=== PATIENT | male | born 1945 | race Caucasian/White ===

== ENCOUNTER → 2018-01-01 11:44 | Outpatient (CLI) | payer MEDICARE, OTHER, SELFPAY ==
[2018-01-01 14:28] LABS: Absolute Lymphocyte Count 1.12 X10^3/ul (0.83-4.51); Absolute Neutrophil Count 3.2 X10^3/uL (2.0-7.7); Basophil# 0.04 X10^3/uL; Basophil% 0.8 % (0-1); Eosinophil# 0.17 X10^3/uL; Eosinophils% 3.4 % (0-5); Hematocrit 42.3 % (40-54); Hemoglobin 13.8 g/dl (13.0-16.5); Lymphocyte # 1.12 X10^3/ul (4.0); Lymphocyte % 22.3 % (19-41); Mean Corp Hgb Conc 32.6 g/gl (32-36); Mean Corpuscular Hgb 29.7 pg (27.0-32.0); Mean Corpuscular Volume 91.2 fL (80-94); Mean Platelet Vol. 9.4 fl (6.2-12.0); Monocyte# 0.54 X10^3/uL; Monocyte% 10.7 % (0-10); Neutrophil # 3.15 X10^3/uL (2.7-7.7); Neutrophil % 62.6 % (47-70); POSITIVE COUNT NO; POSITIVE DIFFERENTIAL NO; POSITIVE MORPHOLOGY NO; Platelet Count 201 K/mm3 (150-450); RBC Distribution Width CV 14.2 % (11.6-14.6); RBC Distribution Width SD 45.7 fl (35.1-43.9); Red Blood Count 4.64 M/mm3 (4.6-6.2)
[2018-01-01 14:40] LABS: ALB/GLOB Ratio 1.1 RATIO (0.9-2.4); AST(SGOT) 25 U/L (15-37); Alanine Aminotransfer ALT/SGPT 37 U/L (16-61); Albumin, Serum 3.6 g/dL (3.2-5.0); Alkaline Phosphatase 74 U/L (45-117); Anion Gap 6 (5-15); BUN 21 mg/dL (7-18); Calcium,Total 8.6 mg/dL (8.5-10.1); Chloride 105 mmol/L (98-107); Creatinine, Serum 0.96 mg/dL (0.70-1.30); EST Glomerular Filtration Rate 83 mL/min (>60); Est Glom Filt Rate - Afr Amer 100 mL/min (>60); Globulin 3.2 g/dL (2.2-4.2); Glucose 69 mg/dL (74-106); Potassium 3.8 mmol/L (3.5-5.1); Protein, Total 6.8 g/dL (6.4-8.2); Sodium Level 141 mmol/L (136-145)
== END ==
PROVIDERS: Family Provider Internal Medicine; PCP Internal Medicine; Visit Provider Internal Medicine Rheumatology
DX: M06.4 Inflammatory polyarthropathy (principal); M17.0 Bilateral primary osteoarthritis of knee; K76.0 Fatty (change of) liver, not elsewhere classified; Z79.899 Other long term (current) drug therapy
CPT/HCPCS: 36415; 80053; 85025

== ENCOUNTER → 2018-01-18 10:12 | Outpatient (CLI) | payer MEDICARE, OTHER, SELFPAY ==
[2018-01-18 12:41] LABS: Cholesterol 179 mg/dL (200); High Density Lipoprotein 38 mg/dL; Triglycerides 111 mg/dL; Very Low Density Lipoprotein 22 mg/dL (5-40)
== END ==
PROVIDERS: Family Provider Internal Medicine; PCP Internal Medicine; Visit Provider Internal Medicine
DX: I10 Essential (primary) hypertension (principal)
CPT/HCPCS: 36415; 80061

== ENCOUNTER → 2018-03-26 11:10 | Outpatient (CLI) | payer MEDICARE, OTHER, SELFPAY ==
[2018-03-26 14:02] LABS: Absolute Lymphocyte Count 0.99 X10^3/ul (0.83-4.51); Absolute Neutrophil Count 3.2 X10^3/uL (2.0-7.7); Basophil# 0.03 X10^3/uL; Basophil% 0.6 % (0-1); Eosinophil# 0.12 X10^3/uL; Eosinophils% 2.5 % (0-5); Hematocrit 42.9 % (40-54); Hemoglobin 14.3 g/dl (13.0-16.5); Lymphocyte # 0.99 X10^3/ul (4.0); Lymphocyte % 20.3 % (19-41); Mean Corp Hgb Conc 33.3 g/gl (32-36); Mean Corpuscular Volume 90.1 fL (80-94); Mean Platelet Vol. 9.7 fl (6.2-12.0); Monocyte# 0.53 X10^3/uL; Monocyte% 10.9 % (0-10); Neutrophil % 65.5 % (47-70); Platelet Count 200 K/mm3 (150-450); RBC Distribution Width CV 14.2 % (11.6-14.6); RBC Distribution Width SD 45.6 fl (35.1-43.9); Red Blood Count 4.76 M/mm3 (4.6-6.2); White Blood Count 4.9 K/mm3 (4.4-11.0)
[2018-03-26 14:03] LABS: POSITIVE COUNT NO; POSITIVE DIFFERENTIAL NO; POSITIVE MORPHOLOGY NO
[2018-03-26 14:24] LABS: ALB/GLOB Ratio 1.1 RATIO (0.9-2.4); AST(SGOT) 22 U/L (15-37); Alanine Aminotransfer ALT/SGPT 36 U/L (16-61); Albumin, Serum 3.5 g/dL (3.2-5.0); Alkaline Phosphatase 78 U/L (45-117); Anion Gap 5 (5-15); BUN 22 mg/dL (7-18); BUN/Creat Ratio 23.8 RATIO (10-20); Calcium,Total 8.7 mg/dL (8.5-10.1); Chloride 108 mmol/L (98-107); Creatinine, Serum 0.92 mg/dL (0.70-1.30); EST Glomerular Filtration Rate 86 mL/min (>60); Est Glom Filt Rate - Afr Amer 104 mL/min (>60); Globulin 3.1 g/dL (2.2-4.2); Glucose 88 mg/dL (74-106); Potassium 3.8 mmol/L (3.5-5.1); Protein, Total 6.6 g/dL (6.4-8.2); Sodium Level 140 mmol/L (136-145)
== END ==
PROVIDERS: Family Provider Internal Medicine; PCP Internal Medicine; Visit Provider Internal Medicine Rheumatology
DX: M06.4 Inflammatory polyarthropathy (principal); M17.0 Bilateral primary osteoarthritis of knee; K76.0 Fatty (change of) liver, not elsewhere classified; Z79.899 Other long term (current) drug therapy
CPT/HCPCS: 36415; 80053; 85025

== ENCOUNTER → 2018-06-21 11:51 | Outpatient (CLI) | payer MEDICARE, OTHER, SELFPAY ==
[2018-06-21 14:11] LABS: ALB/GLOB Ratio 1.1 RATIO (0.9-2.4); AST(SGOT) 30 U/L (15-37); Alanine Aminotransfer ALT/SGPT 43 U/L (16-61); Albumin, Serum 3.5 g/dL (3.2-5.0); Alkaline Phosphatase 76 U/L (45-117); Anion Gap 7 (5-15); BUN 18 mg/dL (7-18); BUN/Creat Ratio 20.2 RATIO (10-20); Calcium,Total 8.9 mg/dL (8.5-10.1); Chloride 105 mmol/L (98-107); Creatinine, Serum 0.89 mg/dL (0.70-1.30); EST Glomerular Filtration Rate 90 mL/min (>60); Est Glom Filt Rate - Afr Amer 108 mL/min (>60); Globulin 3.1 g/dL (2.2-4.2); Glucose 73 mg/dL (74-106); Potassium 3.9 mmol/L (3.5-5.1); Protein, Total 6.6 g/dL (6.4-8.2); Sodium Level 143 mmol/L (136-145)
[2018-06-21 15:33] LABS: Absolute Lymphocyte Count 0.91 X10^3/ul (0.83-4.51); Absolute Neutrophil Count 3.3 X10^3/uL (2.0-7.7); Basophil# 0.04 X10^3/uL; Basophil% 0.8 % (0-1); Eosinophil# 0.12 X10^3/uL; Eosinophils% 2.5 % (0-5); Hemoglobin 14.6 g/dl (13.0-16.5); Lymphocyte # 0.91 X10^3/ul (4.0); Lymphocyte % 18.7 % (19-41); Mean Corp Hgb Conc 32.4 g/gl (32-36); Mean Corpuscular Hgb 29.6 pg (27.0-32.0); Mean Corpuscular Volume 91.3 fL (80-94); Mean Platelet Vol. 10.1 fl (6.2-12.0); Monocyte# 0.47 X10^3/uL; Monocyte% 9.7 % (0-10); Neutrophil # 3.33 X10^3/uL (2.7-7.7); Neutrophil % 68.3 % (47-70); Platelet Count 183 K/mm3 (150-450); RBC Distribution Width CV 13.7 % (11.6-14.6); RBC Distribution Width SD 45.2 fl (35.1-43.9); Red Blood Count 4.93 M/mm3 (4.6-6.2); White Blood Count 4.9 K/mm3 (4.4-11.0)
[2018-06-21 15:34] LABS: POSITIVE COUNT NO; POSITIVE DIFFERENTIAL NO; POSITIVE MORPHOLOGY NO
== END ==
PROVIDERS: Family Provider Internal Medicine; PCP Internal Medicine; Visit Provider Internal Medicine Rheumatology
DX: M06.4 Inflammatory polyarthropathy (principal); M17.0 Bilateral primary osteoarthritis of knee; K76.0 Fatty (change of) liver, not elsewhere classified; Z79.899 Other long term (current) drug therapy
CPT/HCPCS: 36415; 80053; 85025

== ENCOUNTER 2018-06-28 06:19 | Day surgery (SDC) | payer MEDICARE, OTHER, SELFPAY ==
[2018-06-28] VITALS (7 sets, daily range): BP systolic 96–160; BP diastolic 48–86; PULSE 62–67; RESP 16–18; TEMP 36.2–36.4; O2SAT 96–100; BMI 25.2
--- NOTE | 2018-06-28 08:00 | OP.ENDO_ITS ---
Patient Name: Justin Becerra Procedure Date: 06/28/2018 7:32 AM Date of : 1945 Age: 73 Procedure: Colonoscopy Indications: Screening for colorectal malignant neoplasm Providers: Deyvi Gutiérrez MD Referring MD: Deyvi Gutiérrez MD Medicines: See the Anesthesia note for documentation of the administered medications Patient Profile: Last Colonoscopy: 10 years ago. Complications: No immediate complications. Procedure: Pre-Anesthesia Assessment: - Prior to the procedure, a History and Physical was performed, and patient medications and allergies were reviewed. The patient's tolerance of previous anesthesia was also reviewed. The risks and benefits of the procedure and the sedation options and risks were discussed with the patient. All questions were answered, and informed consent was obtained. Prior Anticoagulants: The patient has taken no previous anticoagulant or antiplatelet agents. ASA Grade Assessment: II - A patient with mild systemic disease. After reviewing the risks and benefits, the patient was deemed in satisfactory condition to undergo the procedure. After I obtained informed consent, the scope was passed under direct vision. Throughout the procedure, the patient's blood pressure, pulse, and oxygen saturations were monitored continuously. The colonoscope was introduced through the anus and advanced to the ileocecal valve. The colonoscopy was performed without difficulty. The patient tolerated the procedure well. The quality of the bowel preparation was good. Scope In: 7:41:36 AM Scope Withdrawal Time 0 hours 6 minutes 5 seconds Scope Out: 7:54:21 AM Total Procedure Duration Time 0 hours 12 minutes 45 seconds Findings: Hemorrhoids were found on perianal exam. Multiple small and large-mouthed diverticula were found in the sigmoid colon. There was no evidence of diverticular bleeding. The exam was otherwise without abnormality. Impression: - Hemorrhoids found on perianal exam. - Diverticulosis in the sigmoid colon. There was no evidence of diverticular bleeding. - The examination was otherwise normal. - No specimens collected. Recommendation: - Discharge patient to home. - Resume previous diet. - Continue present medications. - Repeat colonoscopy in 10 years for screening purposes. - Return to primary care physician PRN. Procedure Code(s): --- Professional --- G0121, Colorectal cancer screening; colonoscopy on individual not meeting criteria for high risk Diagnosis Code(s): --- Professional --- Z12.11, Encounter for screening for malignant neoplasm of colon K64.9, Unspecified hemorrhoids K57.30, Diverticulosis of large intestine without perforation or abscess without bleeding CPT copyright 2017 [employer]. All rights reserved. The codes documented in this report are preliminary and upon certified coatings inspector review may be revised to meet current compliance requirements. MD Deyvi Che MD 06/28/2018 7:59:45 AM This report has been signed electronically. Number of Addenda: 0 Note Initiated On: 06/28/2018 7:32 AM
== END 2018-06-28 09:04 | disposition home or self-care (01) ==
LOC: SDC 06:21 → AC 06:22
PROVIDERS: Family Provider Internal Medicine; PCP Internal Medicine; Visit Provider Surgery
PROC: 0DJD8ZZ Inspection of Lower Intestinal Tract, Via Natural or Artificial Opening Endoscopic (ICD-10-PCS; CPT 45378; principal; 2018-06-28 07:40)
DX: Z12.11 Encounter for screening for malignant neoplasm of colon (principal); K64.9 Unspecified hemorrhoids; K57.30 Diverticulosis of large intestine without perforation or abscess without bleeding; I10 Essential (primary) hypertension; M06.9 Rheumatoid arthritis, unspecified; Z79.52 Long term (current) use of systemic steroids; Z79.899 Other long term (current) drug therapy; Z87.19 Personal history of other diseases of the digestive system
CPT/HCPCS: G0121; J7120; J1610

== ENCOUNTER → 2018-08-30 11:36 | Outpatient (CLI) | payer MEDICARE, OTHER, SELFPAY ==
[2018-07-13 10:12] VITALS: BMI 25.3
[2018-08-30 14:24] LABS: Absolute Lymphocyte Count 1.01 X10^3/ul (0.83-4.51); Basophil# 0.03 X10^3/uL; Basophil% 0.7 % (0-1); Eosinophil# 0.08 X10^3/uL; Eosinophils% 1.8 % (0-5); Hematocrit 47.3 % (40-54); Hemoglobin 15.8 g/dl (13.0-16.5); Lymphocyte # 1.01 X10^3/ul (4.0); Lymphocyte % 22.6 % (19-41); Mean Corp Hgb Conc 33.4 g/gl (32-36); Mean Corpuscular Hgb 30.4 pg (27.0-32.0); Mean Platelet Vol. 9.3 fl (6.2-12.0); Monocyte# 0.36 X10^3/uL; Monocyte% 8.1 % (0-10); Neutrophil # 2.98 X10^3/uL (2.7-7.7); Neutrophil % 66.6 % (47-70); Platelet Count 186 K/mm3 (150-450); RBC Distribution Width CV 14.3 % (11.6-14.6); RBC Distribution Width SD 46.7 fl (35.1-43.9); White Blood Count 4.5 K/mm3 (4.4-11.0)
[2018-08-30 14:30] LABS: POSITIVE COUNT NO; POSITIVE DIFFERENTIAL NO; POSITIVE MORPHOLOGY NO
[2018-08-30 14:49] LABS: ALB/GLOB Ratio 1.2 RATIO (0.9-2.4); AST(SGOT) 33 U/L (15-37); Alanine Aminotransfer ALT/SGPT 54 U/L (16-61); Albumin, Serum 3.8 g/dL (3.2-5.0); Alkaline Phosphatase 80 U/L (45-117); Anion Gap 9 (5-15); BUN 18 mg/dL (7-18); BUN/Creat Ratio 18.3 RATIO (10-20); Calcium,Total 9.2 mg/dL (8.5-10.1); Chloride 105 mmol/L (98-107); Creatinine, Serum 0.98 mg/dL (0.70-1.30); EST Glomerular Filtration Rate 80 mL/min (>60); Est Glom Filt Rate - Afr Amer 97 mL/min (>60); Globulin 3.1 g/dL (2.2-4.2); Glucose 92 mg/dL (74-106); Potassium 4.1 mmol/L (3.5-5.1); Protein, Total 6.9 g/dL (6.4-8.2); Sodium Level 143 mmol/L (136-145)
== END ==
PROVIDERS: Family Provider Internal Medicine; PCP Internal Medicine; Referring Provider Internal Medicine Rheumatology; Visit Provider Internal Medicine Rheumatology
DX: M06.4 Inflammatory polyarthropathy (principal); M17.0 Bilateral primary osteoarthritis of knee; K76.0 Fatty (change of) liver, not elsewhere classified; Z79.899 Other long term (current) drug therapy
CPT/HCPCS: 36415; 80053; 85025

== ENCOUNTER → 2018-09-24 16:18 | Outpatient (CLI) | payer MEDICARE, OTHER, SELFPAY ==
[2018-09-24 15:02] VITALS: BMI 25.7
--- NOTE | 2018-09-24 16:20 | RAD_ITS ---
STUDY: X-RAY - RIGHT HIP, AP pelvis REASON FOR EXAM: Male, 73 years old. Right hip pain TECHNIQUE: 2 views of the hip. AP pelvis. COMPARISON: None. FINDINGS: There are osteoarthritic changes of the femoral head with marginal osteophyte formation. There is osteoarthritic spur formation of the acetabular rim. There is moderate articular joint space narrowing. There is mild uncovering of the lateral femoral head. Pelvic ring is intact. Left hip is normally aligned with mild circumferential joint space narrowing. Spondylosis and degenerative changes of the lumbosacral spine partially visualized. RAD/Hip uni 4+ views with Pelvis IMPRESSION: Moderate osteoarthrosis of the right hip. Electronically Signed: John Murdock MD at 10:57 EST , Service support ,
== END ==
LOC: MTLAB 16:19 → MTRAD 16:21
PROVIDERS: Family Provider Internal Medicine; PCP Internal Medicine; Referring Provider Nurse Practitioner Family; Visit Provider Nurse Practitioner Family
DX: M25.551 Pain in right hip (principal)
CPT/HCPCS: 73503

== ENCOUNTER → 2018-11-26 10:02 | Outpatient (CLI) | payer MEDICARE, OTHER, SELFPAY ==
[2018-09-24 15:02] VITALS: BMI 25.7
[2018-11-26 12:10] LABS: Absolute Lymphocyte Count 0.91 X10^3/ul (0.83-4.51); Absolute Neutrophil Count 2.9 X10^3/uL (2.0-7.7); Basophil# 0.02 X10^3/uL; Basophil% 0.5 % (0-1); Eosinophil# 0.07 X10^3/uL; Eosinophils% 1.7 % (0-5); Hematocrit 47.6 % (40-54); Hemoglobin 15.9 g/dl (13.0-16.5); Lymphocyte # 0.91 X10^3/ul (4.0); Lymphocyte % 21.5 % (19-41); Mean Corp Hgb Conc 33.4 g/gl (32-36); Mean Corpuscular Hgb 31.2 pg (27.0-32.0); Mean Corpuscular Volume 93.5 fL (80-94); Mean Platelet Vol. 9.7 fl (6.2-12.0); Monocyte# 0.34 X10^3/uL; Neutrophil # 2.88 X10^3/uL (2.7-7.7); Neutrophil % 68.1 % (47-70); Platelet Count 195 K/mm3 (150-450); RBC Distribution Width CV 13.7 % (11.6-14.6); RBC Distribution Width SD 44.7 fl (35.1-43.9); Red Blood Count 5.09 M/mm3 (4.6-6.2); White Blood Count 4.2 K/mm3 (4.4-11.0)
[2018-11-26 12:11] LABS: POSITIVE COUNT NO; POSITIVE DIFFERENTIAL NO; POSITIVE MORPHOLOGY NO
[2018-11-26 12:37] LABS: ALB/GLOB Ratio 1.3 RATIO (0.9-2.4); AST(SGOT) 28 U/L (15-37); Alanine Aminotransfer ALT/SGPT 40 U/L (16-61); Albumin, Serum 3.9 g/dL (3.2-5.0); Alkaline Phosphatase 81 U/L (45-117); Anion Gap 5 (5-15); BUN 19 mg/dL (7-18); BUN/Creat Ratio 20.3 RATIO (10-20); Calcium,Total 8.9 mg/dL (8.5-10.1); Chloride 107 mmol/L (98-107); Creatinine, Serum 0.93 mg/dL (0.70-1.30); EST Glomerular Filtration Rate 85 mL/min (>60); Est Glom Filt Rate - Afr Amer 102 mL/min (>60); Glucose 63 mg/dL (74-106); Potassium 3.9 mmol/L (3.5-5.1); Protein, Total 6.9 g/dL (6.4-8.2); Sodium Level 142 mmol/L (136-145)
== END ==
PROVIDERS: Family Provider Internal Medicine; PCP Internal Medicine; Referring Provider Internal Medicine Rheumatology; Visit Provider Internal Medicine Rheumatology
DX: M06.4 Inflammatory polyarthropathy (principal); M17.0 Bilateral primary osteoarthritis of knee; K76.0 Fatty (change of) liver, not elsewhere classified; Z79.899 Other long term (current) drug therapy
CPT/HCPCS: 36415; 80053; 85025

== ENCOUNTER → 2018-12-09 09:51 | Outpatient (CLI) | payer MEDICARE, OTHER, SELFPAY ==
[2018-09-24 15:02] VITALS: BMI 25.7
[2018-12-09 12:42] LABS: Cholesterol 172 mg/dL (200); High Density Lipoprotein 39 mg/dL; Triglycerides 128 mg/dL; Very Low Density Lipoprotein 26 mg/dL (5-40)
== END ==
PROVIDERS: Family Provider Internal Medicine; PCP Internal Medicine; Visit Provider Internal Medicine
DX: I10 Essential (primary) hypertension (principal)
CPT/HCPCS: 36415; 80061

== ENCOUNTER → 2019-02-22 11:34 | Outpatient (CLI) | payer MEDICARE, OTHER, SELFPAY ==
[2018-12-14 10:12] VITALS: BMI 25.7
[2019-02-22 13:59] LABS: Absolute Lymphocyte Count 0.76 X10^3/ul (0.83-4.51); Absolute Neutrophil Count 3.2 X10^3/uL (2.0-7.7); Basophil# 0.03 X10^3/uL; Basophil% 0.6 % (0-1); Eosinophil# 0.17 X10^3/uL; Eosinophils% 3.6 % (0-5); Hematocrit 40.9 % (40-54); Hemoglobin 13.9 g/dl (13.0-16.5); Lymphocyte # 0.76 X10^3/ul (4.0); Lymphocyte % 16.1 % (19-41); Mean Corpuscular Hgb 30.2 pg (27.0-32.0); Mean Corpuscular Volume 88.7 fL (80-94); Mean Platelet Vol. 9.2 fl (6.2-12.0); Monocyte# 0.58 X10^3/uL; Monocyte% 12.3 % (0-10); Neutrophil # 3.15 X10^3/uL (2.7-7.7); POSITIVE COUNT NO; POSITIVE DIFFERENTIAL NO; POSITIVE MORPHOLOGY NO; Platelet Count 184 K/mm3 (150-450); RBC Distribution Width CV 13.2 % (11.6-14.6); RBC Distribution Width SD 41.6 fl (35.1-43.9); Red Blood Count 4.61 M/mm3 (4.6-6.2); White Blood Count 4.7 K/mm3 (4.4-11.0)
[2019-02-22 14:17] LABS: ALB/GLOB Ratio 1.1 RATIO (0.9-2.4); AST(SGOT) 21 U/L (15-37); Alanine Aminotransfer ALT/SGPT 37 U/L (16-61); Albumin, Serum 3.4 g/dL (3.2-5.0); Alkaline Phosphatase 77 U/L (45-117); Anion Gap 7 (5-15); BUN 19 mg/dL (7-18); BUN/Creat Ratio 22.6 RATIO (10-20); Calcium,Total 8.8 mg/dL (8.5-10.1); Chloride 108 mmol/L (98-107); Creatinine, Serum 0.84 mg/dL (0.70-1.30); EST Glomerular Filtration Rate 95 mL/min (>60); Est Glom Filt Rate - Afr Amer 115 mL/min (>60); Globulin 3.2 g/dL (2.2-4.2); Glucose 85 mg/dL (74-106); Protein, Total 6.6 g/dL (6.4-8.2); Sodium Level 144 mmol/L (136-145)
== END ==
PROVIDERS: Family Provider Internal Medicine; PCP Internal Medicine; Referring Provider Internal Medicine Rheumatology; Visit Provider Internal Medicine Rheumatology
DX: M06.4 Inflammatory polyarthropathy (principal); M15.9 Polyosteoarthritis, unspecified; M17.0 Bilateral primary osteoarthritis of knee; Z79.899 Other long term (current) drug therapy
CPT/HCPCS: 36415; 80053; 85025

== ENCOUNTER → 2019-05-17 11:45 | Outpatient (CLI) | payer MEDICARE, OTHER, SELFPAY ==
[2019-04-14 12:02] VITALS: BMI 25.7
[2019-05-17 13:48] LABS: Absolute Lymphocyte Count 1.17 X10^3/uL (0.83-4.51); Absolute Neutrophil Count 3.1 X10^3/uL (2.0-7.7); Basophil# 0.05 X10^3/uL; Eosinophil# 0.11 X10^3/uL; Eosinophils% 2.2 % (0-5); Hematocrit 42.7 % (40-54); Hemoglobin 13.9 g/dL (13.0-16.5); Lymphocyte # 1.17 X10^3/ul (4.0); Lymphocyte % 23.7 % (19-41); Mean Corp Hgb Conc 32.6 g/dL (32-36); Mean Corpuscular Hgb 29.5 pg (27.0-32.0); Mean Corpuscular Volume 90.7 fL (80-94); Mean Platelet Vol. 9.7 fl (6.2-12.0); Monocyte# 0.45 X10^3/uL; Monocyte% 9.1 % (0-10); NRBC Flagged by Analyzer 0 % (0-5); Neutrophil # 3.14 X10^3/uL (2.7-7.7); Neutrophil % 63.6 % (47-70); Platelet Count 176 K/mm3 (150-450); RBC Distribution Width CV 13.4 % (11.6-14.6); RBC Distribution Width SD 44.3 fl (35.1-43.9); Red Blood Count 4.71 M/mm3 (4.6-6.2); White Blood Count 4.9 K/mm3 (4.4-11.0)
[2019-05-17 13:59] LABS: ALB/GLOB Ratio 1.4 RATIO (0.9-2.4); AST(SGOT) 22 U/L (15-37); Alanine Aminotransfer ALT/SGPT 35 U/L (16-61); Albumin, Serum 3.7 g/dL (3.2-5.0); Alkaline Phosphatase 118 U/L (45-117); Anion Gap 4 (5-15); BUN 21 mg/dL (7-18); BUN/Creat Ratio 22.6 RATIO (10-20); Calcium,Total 8.5 mg/dL (8.5-10.1); Chloride 107 mmol/L (98-107); Creatinine, Serum 0.93 mg/dL (0.70-1.30); EST Glomerular Filtration Rate 85 mL/min (>60); Est Glom Filt Rate - Afr Amer 103 mL/min (>60); Globulin 2.7 g/dL (2.2-4.2); Glucose 88 mg/dL (74-106); Protein, Total 6.4 g/dL (6.4-8.2); Sodium Level 141 mmol/L (136-145)
== END ==
PROVIDERS: Family Provider Internal Medicine; PCP Internal Medicine; Referring Provider Internal Medicine Rheumatology; Visit Provider Internal Medicine Rheumatology
DX: M06.4 Inflammatory polyarthropathy (principal); M17.0 Bilateral primary osteoarthritis of knee; K76.0 Fatty (change of) liver, not elsewhere classified; Z79.899 Other long term (current) drug therapy
CPT/HCPCS: 36415; 80053; 85025

== ENCOUNTER → 2019-08-15 13:15 | Outpatient (CLI) | payer MEDICARE, OTHER, SELFPAY ==
[2019-07-25 10:08] VITALS: BMI 25.7
[2019-08-15 14:34] LABS: Absolute Neutrophil Count 3.6 X10^3/uL (2.0-7.7); Basophil# 0.06 X10^3/uL; Basophil% 1.1 % (0-1); Eosinophils% 1.8 % (0-5); Hematocrit 43.3 % (40-54); Hemoglobin 13.9 g/dL (13.0-16.5); Mean Corp Hgb Conc 32.1 g/dL (32-36); Mean Corpuscular Hgb 29.6 pg (27.0-32.0); Mean Corpuscular Volume 92.1 fL (80-94); Mean Platelet Vol. 9.6 fl (6.2-12.0); Monocyte# 0.59 X10^3/uL; Monocyte% 10.7 % (0-10); NRBC Flagged by Analyzer 0 % (0-5); Neutrophil # 3.61 X10^3/uL (2.7-7.7); Neutrophil % 65.9 % (47-70); Platelet Count 197 K/mm3 (150-450); RBC Distribution Width CV 13.7 % (11.6-14.6); White Blood Count 5.5 K/mm3 (4.4-11.0)
[2019-08-15 15:08] LABS: ALB/GLOB Ratio 1.3 RATIO (0.9-2.4); AST(SGOT) 24 U/L (15-37); Alanine Aminotransfer ALT/SGPT 35 U/L (16-61); Albumin, Serum 3.6 g/dL (3.2-5.0); Alkaline Phosphatase 76 U/L (45-117); Anion Gap 4 (5-15); BUN 23 mg/dL (7-18); BUN/Creat Ratio 28.6 RATIO (10-20); Calcium,Total 8.5 mg/dL (8.5-10.1); Chloride 106 mmol/L (98-107); EST Glomerular Filtration Rate 100 mL/min (>60); Est Glom Filt Rate - Afr Amer 121 mL/min (>60); Globulin 2.7 g/dL (2.2-4.2); Glucose 62 mg/dL (74-106); Potassium 4.1 mmol/L (3.5-5.1); Protein, Total 6.3 g/dL (6.4-8.2); Sodium Level 141 mmol/L (136-145)
== END ==
PROVIDERS: Family Provider Internal Medicine; PCP Internal Medicine; Referring Provider Internal Medicine Rheumatology; Visit Provider Internal Medicine Rheumatology
DX: M06.4 Inflammatory polyarthropathy (principal); M17.0 Bilateral primary osteoarthritis of knee; K76.0 Fatty (change of) liver, not elsewhere classified; Z79.899 Other long term (current) drug therapy
CPT/HCPCS: 36415; 80053; 85025

== ENCOUNTER → 2019-08-18 11:55 | Outpatient (CLI) | payer MEDICARE, OTHER, SELFPAY ==
[2019-07-25 10:08] VITALS: BMI 25.7
--- NOTE | 2019-08-18 11:57 | EKG12_ITS ---
Test Reason : Blood Pressure : / mmHG Vent. Rate : 071 BPM Atrial Rate : 071 BPM P-R Int : 162 ms QRS Dur : 124 ms QT Int : 418 ms P-R-T Axes : 043 -49 027 degrees QTc Int : 454 ms Normal sinus rhythm Right bundle branch block Left anterior fascicular block Bifascicular block Left ventricular hypertrophy with QRS widening Abnormal ECG Confirmed by VAIBHAV GANT, JAYLON ([id number]), medical editor ANNIE ESTRADA ([id number]) on 08/23/2019 1:05:24 PM Referred By: Zane Carrera Confirmed By:EMILY ESPOSITO MD
== END ==
PROVIDERS: Family Provider Internal Medicine; PCP Internal Medicine; Referring Provider Internal Medicine; Visit Provider Internal Medicine
DX: I10 Essential (primary) hypertension (principal)
CPT/HCPCS: 93005

== ENCOUNTER 2019-10-21 12:04 | Observation (INO) | payer MEDICARE, OTHER, SELFPAY ==
[2019-07-25 10:08] VITALS: BMI 25.7
[2019-10-21] VITALS (13 sets, daily range): BP systolic 124–195; BP diastolic 84–114; PULSE 68–90; RESP 11–20; TEMP 36.6–36.9; O2SAT 94–97; BMI 26.2; BMI 25.0
--- NOTE | 2019-10-21 12:47 | EKG12_ITS ---
Test Reason : CP Blood Pressure : / mmHG Vent. Rate : 088 BPM Atrial Rate : 088 BPM P-R Int : 164 ms QRS Dur : 128 ms QT Int : 396 ms P-R-T Axes : 030 -54 037 degrees QTc Int : 479 ms Normal sinus rhythm Right bundle branch block Left anterior fascicular block Bifascicular block Minimal voltage criteria for LVH, may be normal variant Abnormal ECG Confirmed by TRISTIAN GANT, GERARDO ([id number]), art editor DREW SHANNON ([id number]) on 10/25/2019 9:00:20 AM Referred By: Zane Carrera Confirmed By:GERARDO LUBIN MD
--- NOTE | 2019-10-21 12:47 | RAD_ITS ---
STUDY: X-RAY CHEST REASON FOR EXAM: Male, 74 years old. CHEST PAIN TECHNIQUE: PA and lateral views of the chest. COMPARISON: None. FINDINGS: EKG electrodes are seen. The lungs are clear and expanded. Scattered calcified granulomas. There is no demonstrated pleural abnormality. Normal size heart. Normal mediastinum and adriana. Normal visualized pulmonary arteries. There is atherosclerotic tortuosity of the aortic arch and descending thoracic aorta. There are diffuse degenerative changes of the visualized thoracic spine. Normal visualized ribs, clavicles, and shoulders. There is no demonstrated abnormality of the visualized soft tissue structures of the upper abdomen. RAD/Chest PA and Lateral IMPRESSION: No acute abnormality is seen. Electronically Signed: Jaswant Guerrero, at 13:29 EST , Service support ,
[2019-10-21 12:58] LABS: Absolute Lymphocyte Count 0.78 X10^3/uL (0.83-4.51); Absolute Neutrophil Count 4.5 X10^3/uL (2.0-7.7); Basophil# 0.03 X10^3/uL; Basophil% 0.5 % (0-1); Eosinophil# 0.05 X10^3/uL; Eosinophils% 0.9 % (0-5); Hematocrit 49.1 % (40-54); Hemoglobin 15.9 g/dL (13.0-16.5); Lymphocyte # 0.78 X10^3/ul (4.0); Lymphocyte % 13.5 % (19-41); Mean Corp Hgb Conc 32.4 g/dL (32-36); Mean Corpuscular Hgb 29.2 pg (27.0-32.0); Mean Corpuscular Volume 90.3 fL (80-94); Mean Platelet Vol. 8.8 fl (6.2-12.0); Monocyte# 0.39 X10^3/uL; Monocyte% 6.7 % (0-10); NRBC Flagged by Analyzer 0 % (0-5); Neutrophil # 4.51 X10^3/uL (2.7-7.7); Neutrophil % 78.1 % (47-70); Platelet Count 193 K/mm3 (150-450); RBC Distribution Width CV 13.5 % (11.6-14.6); RBC Distribution Width SD 43.7 fl (35.1-43.9); Red Blood Count 5.44 M/mm3 (4.6-6.2); White Blood Count 5.8 K/mm3 (4.4-11.0)
[2019-10-21 13:10] LABS: Anion Gap 4 (5-15); BUN 21 mg/dL (7-18); Calcium,Total 9.3 mg/dL (8.5-10.1); Chloride 106 mmol/L (98-107); EST Glomerular Filtration Rate 78 mL/min (>60); Est Glom Filt Rate - Afr Amer 94 mL/min (>60); Estimated Creatinine Clearance 73.29 ml/min; Glucose 90 mg/dL (74-106); Potassium 3.7 mmol/L (3.5-5.1); Sodium Level 140 mmol/L (136-145)
[2019-10-21] MEDS: Aspirin 81 MG TAB.CHEW 324 MG PO (13:22)
[2019-10-21] MEDS: Nitroglycerin SL (ED/IMG/CATH) 0.4 MG TABLET SUBLINGUAL ×2 (13:22→13:45)
--- NOTE | 2019-10-21 14:22 | ED.DCSUM_ITS ---
- ER Visit Summary Date of Service: 10/21/19 Chief Complaint: Chest pain History of Present Illness: The patient is a 74 M who presents with chest pain that began last night. Patient states that has been intermittent. Patient describes it as a pressure and burning. Patient states the pain is over the sub sternal area. Patient states nothing makes it better or worse. Patient states the pain just comes and goes on its own. Patient states he was working outside this morning and did not have any episodes of chest pain. Patient denies any shortness of breath. Patient denies any nausea or vomiting. Patient denies any diaphoresis. Patient does have a history of hypertension. Patient denies any other cardiac risk factors. Patient has a history of basal cell cancer which has been removed by his java j2ee technical lead but does not have any other PE risk factors. Physical Examination: Vital signs are stable. Patient is afebrile. Patient is in no acute distress. Oral mucosa is pink and moist. Neck is supple. Trachea is midline. There is no JVD noted. Heart was regular rate and rhythm. Lungs are clear and equal bilaterally. Abdomen is soft. Bowel sounds are normal. There is no tenderness. There is no rebound or guarding noted. Skin is warm dry. Cranial nerves II through XII are intact. There are no focal motor or sensory deficits noted. Extremities are intact. There is no calf tenderness or edema. Test Results: EKG shows normal sinus rhythm with a rate of 88. There are no acute ST or T wave changes. There is a right bundle branch block and a left anterior fascicular block. This was unchanged compared to previous EKG dated 08/18/2019. CBC, basic metabolic profile, troponin were obtained were within normal limits. Chest x-ray does not show any acute cardiopulmonary process. This was interpreted by the radiologist and myself. Emergency Department Course and Treatment: Patient was given aspirin and sublingual nitroglycerin here. Patient was feeling better on reevaluation. Patient has a HEART score of 4 and a RAF risk score of 2. I recommended to the patient that he be admitted for observation for further evaluation of his chest pain and possible stress test. Patient is agreeable with this. Case was discussed with the hospitalist. Patient will be admitted to PCU for observation. Disposition: Admit to hospital Impression: Chest pain This note was generated with [employer] dictation software. It may contain incorrect words, spelling, and punctuation that were not noted in review of the chart prior to signing ED Disposition - Plan for ED Patient: Disposition: Acute Care Hospital [facility] Diagnosis: Chest pain Referrals: Zane Carrera MD [Primary Care Provider] -
--- NOTE | 2019-10-21 14:24 | HP.PCM_ITS ---
History of Present Illness Date of Admission: 10/21/19 Chief Complaint: chest pain The patient is a pleasant 74 year old M with a past medical history as listed. He was admitted through the ED on 10/21/2019 with a complaint of chest pain. Chest pain started yesterday was pressure-like, retrosternal with no aggravating factors but relieved by sublingual nitro which he received in the ED. Patient states that he noted the pain but did not think much of it. However it was persisted today and his asked him to go on some errands. However he came back shortly afterwards because of the pain and asked to be brought to the ED. He denied any associated lightheadedness or dizziness, shortness of breath, diaphoresis, palpitations, nausea vomiting or diarrhea. Review of systems was otherwise negative. On admission in the ED, vitals were significant for blood pressure of 124/105 with respiratory rate of 20 and pulse rate of 86 as well as temperature of 98.1. He was saturating at 97% on room air. Chemistry was unremarkable initial troponin was negative. CBC was also unremarkable. Chest x-ray showed no acute cardiopulmonary process. EKG done showed bifascicular block which is chronic. He has been admitted to be managed for chest pain rule out ACS. [] Past Medical History Past Medical History (Chronic Problems): Chronic Problems (Last Reviewed 04/11/19 @ 09:38 by Graciela Bean) Rheumatoid arthritis (Chronic) Heart valve problem (Chronic) Hypertension (Chronic) Arthritis (Chronic) Seasonal allergies (Chronic) Medical History: Medical History (Last Reviewed 04/11/19 @ 09:38 by Graciela Bean) Heart valve problem (Chronic) I38 Hypertension (Chronic) I10 Arthritis (Chronic) M19.90 Seasonal allergies (Chronic) J30.2 Basal cell carcinoma C44.91 Allergies No Known Allergies Allergy (Verified 10/21/19 12:05) Home Medications: Ambulatory Orders Medication Instructions Recorded hydroxychloroquine 200 mg tablet 200 mg PO BID 10/07/17 methotrexate sodium 2.5 mg tablet 20 mg PO WE 04/13/18 Diphenhydramine HCl [Benadryl 25 mg PO PRN PRN 06/24/18 Allergy] glucosamine HCl 500 mg tablet 500 mg PO DAILY tab 12/14/18 Acetaminophen [Tylenol Arthritis] 650 mg PO DAILY 10/21/19 Folic Acid 1 mg PO BID 10/21/19 Lisinopril 20 mg PO DAILY 10/21/19 Loratadine [Claritin] 10 mg PO DAILY 10/21/19 Multivitamin [Multivitamins] 1 tab PO DAILY 10/21/19 Surgical History: Surgical History (Last Reviewed 04/11/19 @ 09:38 by Graciela Bean) History of cholecystectomy Z98.890, Z90.49 History of colonoscopy Z98.890 06/28/18 Lives: Spouse/ Significant Other Smoking Status: Never smoker Tobacco Use: Non-smoker Alcohol: None Drugs: None - *Family History Maternal Family History: Family History (Last Reviewed 04/11/19 @ 09:38 by Graciela Bean) Mother Breast cancer Review of Systems Constitutional: Denies: Chills, Fever, Malaise, Weakness, Weight Change Eyes: Denies: Blurred vision HEENT: Denies: Head Aches, Sinus Congestion, Sinus Drainage Cardiovascular: Reports: Chest Pain, Chest Pressure. Denies: Chest Tightness, Edema, Heaviness, Light Headedness, Orthopnea, Palpitations Respiratory: Denies: Cough, Shortness of Breath, Shortness of breath at rest, Shortness of breath upon exertion, Sputum production Gastrointestinal: Denies: Abdominal Pain, Nausea, Vomiting Genitourinary: Denies: Dysuria Musculoskeletal: Denies: Joint Pain, Joint Tenderness Skin: Denies: Rash, Wounds Neurological: Denies: Numbness, Tingling, Focal weakness Psychiatric: Denies: Anxiety, Depression, Homicidal Ideations, Suicidal Ideations Hematologic/ Lymphatic: Denies: Easy Bruising, Easy Bleeding VTE Information - Inpt Only VTE Present on Admission: No VTE Pharm Prophylaxis ordered?: Yes Patient Problems: Active and Suspected Problems (Last Reviewed 04/11/19 @ 09:38 by Graciela Bean) Chest pain (Acute) - Physical Exam Vitals/I&O's: Vital Signs Temp Pulse Resp BP Pulse Ox 98.1 F 86 20 H 124/105 H 97 10/21/19 12:05 10/21/19 13:45 10/21/19 12:11 10/21/19 13:45 10/21/19 12:11 Oxygen Delivery Method Room Air Weight: 192 lb 14.472 oz Body Mass Index (BMI) 26.2 General: Alert, Oriented x3, Cooperative, No apparent distress HEENT: Atraumatic, PERRLA, EOMI, Normocephalic Oral: Moist Mucosa Neck: Supple, No JVD, Negative Carotid Bruits Lungs: Clear to auscultation, Normal air movement, No rhonchi, No wheeze, No rales Cardiovascular: Regular rate, Regular Rhythm, Normal S1, Normal S2, No murmurs Abdomen: Bowel Sounds Present, Soft, Non Tender, Non-Distended, No Hepato- splenomegaly Extremities: No clubbing, No cyanosis, No edema, Capillary Refill Less than 3 Seconds Skin: No rashes, No breakdown Musculoskeletal: No Tenderness to Palpation of Joints or Extremities Lymphatic: No Cervical, Supraclavicular, or Inguinal Adenopathy Neurological: Cranial nerves II-XII grossly intact, Neuro grossly intact, Motor Exam 5/5 strength throughout Psych/Mental Status: Normal Affect, Appropriate, Alert and oriented to time, place, person, mood and affect Laboratory Results 10/21/19 12:10: WBC 5.8, RBC 5.44, Hgb 15.9, Hct 49.1, MCV 90.3, MCH 29.2, MCHC 32.4, RDW Std Deviation 43.7, RDW Coeff of [place] 13.5, Plt Count 193, MPV 8.8, Immature Gran % (Auto) 0.300, Neut % (Auto) 78.1 H, Lymph % (Auto) 13.5 L, [place] % (Auto) 6.7, Eos % (Auto) 0.9, Baso % (Auto) 0.5, Absolute Neuts (auto) 4.5, Absolute Lymphs (auto) 0.78 L, Nucleated RBC % 0 10/21/19 12:10: Sodium 140, Potassium 3.7, Chloride 106, Carbon Dioxide 30.0, Anion Gap 4 L, BUN 21 H, Creatinine 1.00, Estim Creat Clear Calc 73.29, Est GFR (MDRD) Af Amer 94, Est GFR (MDRD) Non-Af 78, BUN/Creatinine Ratio 21.0 H, Glucose 90, Calcium 9.3, Troponin I < 0.015 Diagnostic Data Chest X-Ray 10/21/19 12:47 IMPRESSION: No acute abnormality is seen. Electronically Signed: Jaswant Guerrero, at 13:29 EST , Service support , Current Medications Nitroglycerin (Nitrostat) 0.4 mg SUBLINGUAL Q5M PRN PRN Reason: Chest pain Last Admin: 10/21/19 13:45 Dose: 0.4 mg Documented by: Assessment/Plan All Active Problems (Last Reviewed 04/11/19 @ 09:38 by Graciela Bean) Chest pain (Acute) 74-year-old male admitted with complaint of chest pain. 1. Chest pain to rule out ACS * Admit to PCU with telemetry. * Troponin is negative. We will cycle. * Sublingual nitroglycerin as needed. P.o. aspirin 81 mg daily. * For stress test tomorrow if troponins are negative. * 2. Hypertension: * On lisinopril 20 mg daily. * Blood pressure was in the 160s at time of review in the ED. * On admission, blood pressure is 124/105. IV hydralazine PRN. 3. History of rheumatoid arthritis * On methotrexate. Also on hydroxychloroquine. Follows with Dr. Christianson. DVT prophylaxis: Lovenox Code Visit OBSV E&M: 52007 Initial observation care L2
--- NOTE | 2019-10-21 16:40 | EKG12_ITS ---
Test Reason : CP ADMISSION Blood Pressure : / mmHG Vent. Rate : 074 BPM Atrial Rate : 074 BPM P-R Int : 170 ms QRS Dur : 130 ms QT Int : 416 ms P-R-T Axes : 038 -48 011 degrees QTc Int : 461 ms Normal sinus rhythm Right bundle branch block Left anterior fascicular block Bifascicular block Abnormal ECG Confirmed by RAHUL GANT, JEFFRY ([id number]), legal editor DREW SHANNON ([id number]) on 10/26/2019 11:12:15 AM Referred By: Zane Carrera Confirmed By:JEFFRY KAY MD
--- NOTE | 2019-10-21 18:42 | NURSING ---
Reviewed and agreed on all charting with Eva Bower RN
--- NOTE | 2019-10-21 18:48 | NURSING ---
Reviewed and agreed on all charting with Eva Bower RN
[2019-10-21] MEDS: Hydroxychloroquine 200 MG Tablet PO (21:51)
[2019-10-22] VITALS (7 sets, daily range): BP systolic 126–145; BP diastolic 73–96; PULSE 60–91; RESP 16–17; TEMP 36.4–36.8; O2SAT 96
[2019-10-22] MEDS: Lisinopril 20 MG Tablet PO (05:39)
[2019-10-22] MEDS: Aspirin E.C. 81 MG Tablet PO (05:39)
--- NOTE | 2019-10-22 05:55 | NM_ITS ---
CLINICAL: 74-year-old hypertensive male with reported history of valvular heart disease and current complaint of chest discomfort. REST-MAXIMAL STRESS 99mTc SESTAMIBI MYOCARDIAL PERFUSION SPECT COMPARISON: None available FINDINGS: Following the intravenous administration of 13.8 mCi of 99m Tc sestamibi, the resting myocardial perfusion acquisitions demonstrate uniform radiopharmaceutical concentration throughout all left ventricular segments. After exercising on the treadmill for 7 minutes and 31 seconds, to a maximum heart rate of 133 beats per minute and following the intravenous administration of 41.8 mCi of 99m Tc sestamibi, the post stress myocardial perfusion images reveal likewise normal perfusion throughout all left ventricular myocardial segments. The post stress resting left ventricular ejection fraction is calculated to be 74.0 % by gated SPECT technique. Wall motion and end systolic thickening are considered normal. [place]/Nuclear Stress Test - Treadmil IMPRESSION: 1. NORMAL REST-MAXIMAL STRESS 99m Tc SESTAMIBI MYOCARDIAL PERFUSION SPECT. A. No evidence of maximal exercise induced left ventricular ischemia. B. Preservation of resting left ventricular systolic function. (Teodora et al, J Nucl Med 37: 105P, 1995). Electronically Signed: Eliseo Nair DO at 13:46 EST Tel , Service support ,
--- NOTE | 2019-10-22 05:55 | EKG12_ITS ---
Test Reason : AM EKG Blood Pressure : / mmHG Vent. Rate : 065 BPM Atrial Rate : 065 BPM P-R Int : 168 ms QRS Dur : 132 ms QT Int : 454 ms P-R-T Axes : 058 -39 030 degrees QTc Int : 472 ms Normal sinus rhythm Left axis deviation Right bundle branch block Abnormal ECG Confirmed by RAHUL GANT, JEFFRY ([id number]), assistant film editor DREW SHANNON ([id number]) on 10/26/2019 10:15:40 AM Referred By: Zane Carrera Confirmed By:JEFFRY KAY MD
[2019-10-22 06:35] LABS: Absolute Neutrophil Count 3.1 X10^3/uL (2.0-7.7); Basophil# 0.05 X10^3/uL; Eosinophil# 0.16 X10^3/uL; Eosinophils% 3.3 % (0-5); Hematocrit 45.9 % (40-54); Hemoglobin 15.2 g/dL (13.0-16.5); Lymphocyte % 22.6 % (19-41); Mean Corp Hgb Conc 33.1 g/dL (32-36); Mean Corpuscular Hgb 29.7 pg (27.0-32.0); Mean Corpuscular Volume 89.8 fL (80-94); Mean Platelet Vol. 9.1 fl (6.2-12.0); Monocyte# 0.48 X10^3/uL; Monocyte% 9.9 % (0-10); NRBC Flagged by Analyzer 0 % (0-5); Neutrophil # 3.07 X10^3/uL (2.7-7.7); Platelet Count 189 K/mm3 (150-450); RBC Distribution Width CV 13.4 % (11.6-14.6); RBC Distribution Width SD 43.5 fl (35.1-43.9); Red Blood Count 5.11 M/mm3 (4.6-6.2); White Blood Count 4.9 K/mm3 (4.4-11.0)
[2019-10-22 06:57] LABS: Anion Gap 6 (5-15); BUN 18 mg/dL (7-18); Calcium,Total 8.9 mg/dL (8.5-10.1); Chloride 107 mmol/L (98-107); Creatinine, Serum 0.95 mg/dL (0.70-1.30); EST Glomerular Filtration Rate 83 mL/min (>60); Est Glom Filt Rate - Afr Amer 101 mL/min (>60); Estimated Creatinine Clearance 77.15 ml/min; Glucose 84 mg/dL (74-106); Sodium Level 141 mmol/L (136-145)
[2019-10-22] MEDS: Folic Acid 1 MG Tablet PO (11:23)
[2019-10-22] MEDS: Multivitamins,Therapeutic Tablet 1 TABLET PO (11:23)
[2019-10-22] MEDS: Loratadine 10 MG Tablet PO (11:23)
[2019-10-22] MEDS: Hydroxychloroquine 200 MG Tablet PO (11:24)
--- NOTE | 2019-10-22 14:33 | DCINST_ITS ---
- Discharge Diagnoses Current Active Problems: Current Active and Chronic Problems (Last Reviewed 04/11/19 @ 09:38 by Graciela Bean) Chest pain (Acute) You will use the following diet at home:: No restrictions Your food should be the consistency of: Regular Your liquids should be the consistency of: Regular/Thin Discharge Activity: Return to Normal Activity Weight Bearing Status: Full weight bearing Allergies/Adverse Reactions: Allergies No Known Allergies Allergy (Verified 10/21/19 12:05) Medications to take at Discharge hydroxychloroquine 200 mg tablet 200 mg PO BID 10/07/17 methotrexate sodium 2.5 mg tablet 20 mg PO WE 04/13/18 Diphenhydramine HCl [Benadryl Allergy] 25 mg PO PRN PRN 06/24/18 glucosamine HCl 500 mg tablet 500 mg PO DAILY tab 12/14/18 Acetaminophen [Tylenol Arthritis] 650 mg PO DAILY 10/21/19 Folic Acid 1 mg PO BID 10/21/19 Lisinopril 20 mg PO DAILY 10/21/19 Loratadine [Claritin] 10 mg PO DAILY 10/21/19 Multivitamin [Multivitamins] 1 tab PO DAILY 10/21/19 Primary Care Physician: Zane Carrera MD [Primary Care Provider] - Please follow up with your Primary Care Physician in: in 2 weeks Test Results: Test results from this visit will be discussed in further detail at your follow- up appointment, if applicable.
--- NOTE | 2019-10-22 14:43 | STRESSREP_ITS ---
Stress Test Report Exercise EKG stress test Protocol Used is Arturo protocol Resting EKG showed sinus rhythm at a rate of 70 bpm with underlying right bundle branch block pattern. Blood pressure was 148/72 mmHg she was able exercised on Arturo protocol for a total duration of 7 minutes and 31 seconds achieving a peak heart rate of 133 bpm which is equal to 89% of age-predicted maximum heart rate. Review of the EKG and exercise are showed no new significant ischemic changes other than the resting EKG showing right bundle branch block pattern. The test w as terminated due to pt reaching adequate target heart rate and for s above average functional capacity 9.30 METs of workload ymptoms of fatigue. 1. Above Average functional capacity achieving 9.30 METs of workload 2. No symptoms of chest discomfort 3. Appropriate hypertensive and chronotropic response with exercise 4. No new EKG changes noted 5. Normal exercise EKG stress test Rest and post stress images will be reported separately by radiology
--- NOTE | 2019-10-23 11:03 | DS.PCM_ITS ---
Discharge Date and Diagnosis Date of Admission: 10/21/19 Date of Discharge: 10/22/19 - Primary Discharge Diagnosis #1 musculoskeletal chest pain #2 essential hypertension #3 rheumatoid arthritis - Secondary Discharge Diagnosis Chronic Problems (Last Reviewed 04/11/19 @ 09:38 by Graciela Bean) Rheumatoid arthritis (Chronic) Heart valve problem (Chronic) Hypertension (Chronic) Arthritis (Chronic) Seasonal allergies (Chronic) Hospital Course and Treatment Operations: None Procedures: Nuclear stress test Summary of Care Provided: The patient is a 74 year old M who was seen in the emergency room at [facility] with a chief complaint of chest pain, work-up in the emergency room included an EKG which showed a normal sinus rhythm without any evidence of ischemic changes, labs were within normal limits, chest x-ray showed no acute process. Patient was given aspirin and sublingual nitroglycerin, he was placed in observation status on PCU cardiac enzymes were cycled-these remain negative. On 10/21/2019, patient underwent a nuclear stress test that was negative for reversible ischemia. On 10/21/2019, patient was seen and examined: On examination he appeared in good health and spirits. Vital signs as documented. Skin warm and dry and without overt rashes. Neck without JVD. Lungs clear. Heart exam notable for regular rhythm, normal sounds and absence of murmurs, rubs or gallops. Abdomen unremarkable and without evidence of organomegaly, masses, or abdominal aortic enlargement. Extremities nonedematous. Neuro: Cranial nerves II through XII are grossly intact, no focal motor deficits were noted, sensation to light touch and pinprick intact. Psych: Patient is alert and oriented x3, he does not appear anxious or depressed Patient was discharged in stable condition on 10/21/2019. - Physical Exam Vitals/I&O's: Vital Signs Temp Pulse Resp BP Pulse Ox 98.3 F 91 17 145/96 H 96 10/22/19 14:12 10/22/19 14:12 10/22/19 14:12 10/22/19 14:12 10/22/19 14:12 Oxygen Delivery Method Room Air Weight: 83.9 kg Body Mass Index (BMI) 25.0 Intake and Output for Last 24 Hours 10/21/19 10/22/19 10/23/19 23:59 23:59 23:59 Intake Total 600 / 600 300 / 300 Balance 600 / 600 300 / 300 Discharge Activity: Return to Normal Activity Weight Bearing Status: Full weight bearing Home Medications: Medications to take at Discharge hydroxychloroquine 200 mg tablet 200 mg PO BID 10/07/17 methotrexate sodium 2.5 mg tablet 20 mg PO WE 04/13/18 Diphenhydramine HCl [Benadryl Allergy] 25 mg PO PRN PRN 06/24/18 glucosamine HCl 500 mg tablet 500 mg PO DAILY tab 12/14/18 Acetaminophen [Tylenol Arthritis] 650 mg PO DAILY 10/21/19 Folic Acid 1 mg PO BID 10/21/19 Lisinopril 20 mg PO DAILY 10/21/19 Loratadine [Claritin] 10 mg PO DAILY 10/21/19 Multivitamin [Multivitamins] 1 tab PO DAILY 10/21/19 Primary Care Physician: Zane Carrera MD [Primary Care Provider] - Please follow up with your Primary Care Physician in: in 2 weeks Disposition: Home Minutes spent on discharge:: 30 Patient Condition:: Stable Medical Necessity - Tobacco Use Smoking Status: Never smoker Tobacco Use: Non-smoker Meaningful Use Info Meaningful Use Diagnoses (Choose all that apply): None applicable Code Visit OBSV E&M: 31618 Observation care discharge
== END 2019-10-22 14:35 | disposition home or self-care (01) ==
LOC: ED 14:32 → PCU 16:05
PROVIDERS: Admitting Provider Student in an Organized Health Care Education/Training Program; Emergency Provider Emergency Medicine; PCP Internal Medicine; Visit Provider Internal Medicine
DX: R07.89 Other chest pain (principal); I10 Essential (primary) hypertension; M06.9 Rheumatoid arthritis, unspecified; Z79.899 Other long term (current) drug therapy; I45.2 Bifascicular block
CPT/HCPCS: 36415; 71046; 78452; 80048; 84484; 85025; 93005; 93017; 99218; 99285; A9500; A4216; G0378

== ENCOUNTER → 2019-11-09 10:16 | Outpatient (CLI) | payer MEDICARE, OTHER, SELFPAY ==
[2019-11-02 14:32] VITALS: BMI 25.2
[2019-11-09 12:23] LABS: Absolute Lymphocyte Count 1.04 X10^3/uL (0.83-4.51); Absolute Neutrophil Count 2.7 X10^3/uL (2.0-7.7); Basophil# 0.05 X10^3/uL; Basophil% 1.1 % (0-1); Eosinophil# 0.12 X10^3/uL; Eosinophils% 2.8 % (0-5); Hematocrit 42.4 % (40-54); Hemoglobin 14.3 g/dL (13.0-16.5); Lymphocyte # 1.04 X10^3/ul (4.0); Lymphocyte % 23.9 % (19-41); Mean Corp Hgb Conc 33.7 g/dL (32-36); Mean Corpuscular Hgb 30.6 pg (27.0-32.0); Mean Corpuscular Volume 90.6 fL (80-94); Mean Platelet Vol. 9.7 fl (6.2-12.0); Monocyte# 0.47 X10^3/uL; Monocyte% 10.8 % (0-10); NRBC Flagged by Analyzer 0 % (0-5); Neutrophil # 2.65 X10^3/uL (2.7-7.7); Neutrophil % 60.9 % (47-70); Platelet Count 194 K/mm3 (150-450); RBC Distribution Width CV 13.3 % (11.6-14.6); RBC Distribution Width SD 42.9 fl (35.1-43.9); Red Blood Count 4.68 M/mm3 (4.6-6.2); White Blood Count 4.4 K/mm3 (4.4-11.0)
[2019-11-09 12:49] LABS: ALB/GLOB Ratio 1.2 RATIO (0.9-2.4); AST(SGOT) 25 U/L (15-37); Alanine Aminotransfer ALT/SGPT 44 U/L (12-78); Albumin, Serum 3.8 g/dL (3.4-5.0); Alkaline Phosphatase 81 U/L (50-136); Anion Gap 3 (5-15); BUN 22 mg/dL (7-18); BUN/Creat Ratio 21.4 RATIO (10-20); Calcium,Total 8.8 mg/dL (8.5-10.1); Chloride 105 mmol/L (98-107); Cholesterol 196 mg/dL (200); Creatinine, Serum 1.03 mg/dL (0.70-1.30); EST Glomerular Filtration Rate 75 mL/min (>60); Est Glom Filt Rate - Afr Amer 91 mL/min (>60); Globulin 3.1 g/dL (2.3-3.5); Glucose 83 mg/dL (70-110); High Density Lipoprotein 41 mg/dL; Potassium 4.1 mmol/L (3.5-5.1); Protein, Total 6.9 g/dL (6.4-8.2); Sodium Level 140 mmol/L (136-145); Triglycerides 126 mg/dL; Very Low Density Lipoprotein 25 mg/dL (5-40)
== END ==
PROVIDERS: PCP Internal Medicine; Referring Provider Internal Medicine Rheumatology; Visit Provider Internal Medicine Rheumatology
DX: M06.4 Inflammatory polyarthropathy (principal); I10 Essential (primary) hypertension; M25.562 Pain in left knee; M17.0 Bilateral primary osteoarthritis of knee; K76.0 Fatty (change of) liver, not elsewhere classified; Z79.899 Other long term (current) drug therapy
CPT/HCPCS: 36415; 80053; 80061; 85025

== ENCOUNTER → 2020-02-03 16:25 | Outpatient (CLI) | payer MEDICARE, OTHER, SELFPAY ==
[2019-11-02 14:32] VITALS: BMI 25.2
[2020-02-03 17:42] LABS: Absolute Lymphocyte Count 1.02 X10^3/uL (0.83-4.51); Absolute Neutrophil Count 2.7 X10^3/uL (2.0-7.7); Basophil# 0.04 X10^3/uL; Basophil% 0.9 % (0-1); Eosinophils% 2.3 % (0-5); Hematocrit 44.4 % (40-54); Hemoglobin 14.7 g/dL (13.0-16.5); Lymphocyte # 1.02 X10^3/ul (4.0); Lymphocyte % 23.2 % (19-41); Mean Corp Hgb Conc 33.1 g/dL (32-36); Mean Corpuscular Hgb 30.4 pg (27.0-32.0); Mean Corpuscular Volume 91.9 fL (80-94); Monocyte# 0.49 X10^3/uL; Monocyte% 11.1 % (0-10); NRBC Flagged by Analyzer 0 % (0-5); Neutrophil # 2.74 X10^3/uL (2.7-7.7); Neutrophil % 62.3 % (47-70); Platelet Count 178 K/mm3 (150-450); RBC Distribution Width CV 13.5 % (11.6-14.6); RBC Distribution Width SD 45.5 fl (35.1-43.9); Red Blood Count 4.83 M/mm3 (4.6-6.2); White Blood Count 4.4 K/mm3 (4.4-11.0)
[2020-02-03 18:03] LABS: ALB/GLOB Ratio 1.2 RATIO (0.9-2.4); AST(SGOT) 26 U/L (15-37); Alanine Aminotransfer ALT/SGPT 43 U/L (16-61); Albumin, Serum 3.7 g/dL (3.2-5.0); Alkaline Phosphatase 78 U/L (45-117); Anion Gap 2 (5-15); BUN 22 mg/dL (7-18); BUN/Creat Ratio 19.3 RATIO (10-20); Calcium,Total 8.8 mg/dL (8.5-10.1); Chloride 104 mmol/L (98-107); Creatinine, Serum 1.14 mg/dL (0.70-1.30); EST Glomerular Filtration Rate 67 mL/min (>60); Est Glom Filt Rate - Afr Amer 81 mL/min (>60); Globulin 3.1 g/dL (2.2-4.2); Glucose 76 mg/dL (74-106); Potassium 4.1 mmol/L (3.5-5.1); Protein, Total 6.8 g/dL (6.4-8.2); Sodium Level 140 mmol/L (136-145)
== END ==
PROVIDERS: PCP Internal Medicine; Referring Provider Internal Medicine Rheumatology; Visit Provider Internal Medicine Rheumatology
DX: M06.4 Inflammatory polyarthropathy (principal); M17.0 Bilateral primary osteoarthritis of knee; K76.0 Fatty (change of) liver, not elsewhere classified; Z79.899 Other long term (current) drug therapy
CPT/HCPCS: 36415; 80053; 85025

== ENCOUNTER → 2020-03-05 11:36 | Outpatient (CLI) | payer MEDICARE, OTHER, SELFPAY ==
[2020-03-05 10:34] VITALS: BMI 25.0
--- NOTE | 2020-03-05 11:39 | RAD_ITS ---
STUDY: X-RAY - RIGHT SHOULDER REASON FOR EXAM: Male, 75 years old. right shoulder pain, pt recently fell and jammed arm TECHNIQUE: 4 view(s) of the shoulder. COMPARISON: None. FINDINGS: There are mild degenerative changes of the glenoid labrum. There mild degenerative changes of the right acromioclavicular joint. Normal acromion. Normal humeral head and visualized proximal humerus. The soft tissue structures are unremarkable. Normal visualized pulmonary apex. RAD/Shoulder min 2 Views IMPRESSION: Mild degenerative changes of the glenoid labrum and acromioclavicular joint. Electronically Signed: Santo Sweeney MD at 18:41 EDT , Service support ,
--- NOTE | 2020-03-05 11:39 | RAD_ITS ---
STUDY: X-RAY - PELVIS AND RIGHT HIP REASON FOR EXAM: Male, 75 years old. right hip/pelvis pain TECHNIQUE: 3 views of the pelvis and hip. COMPARISON: Previous study of 09/24/2018 FINDINGS: There is a non-specific bowel gas pattern. Normal visualized soft tissue structures. Normal bilateral iliac wings, sacroiliac joints and visualized sacrum. Normal bilateral superior and inferior pubic rami. Normal pubic symphysis. Normal bilateral ischial tuberosities. There are moderately severe arthritic changes of the right hip with joint space narrowing and minimal remodeling of the right femoral head. Mild arthritic changes of the left hip are also noted. There are degenerative changes of the visualized lower lumbar spine. RAD/HIP, UNI W/ Pelvis 2-3 Views IMPRESSION: Degenerative changes of the left and right hips, right side more severely affected than left. Degenerative changes of the visualized lower lumbar spine. Electronically Signed: Santo Sweeney MD at 18:35 EDT , Service support ,
== END ==
PROVIDERS: PCP Internal Medicine; Referring Provider Internal Medicine; Visit Provider Internal Medicine
DX: M19.90 Unspecified osteoarthritis, unspecified site (principal); M25.511 Pain in right shoulder
CPT/HCPCS: 73030; 73502

== ENCOUNTER → 2020-05-04 10:49 | Outpatient (CLI) | payer MEDICARE, OTHER, SELFPAY ==
[2020-03-12 11:07] VITALS: BMI 25.0
[2020-05-04 12:17] LABS: Absolute Lymphocyte Count 0.82 X10^3/uL (0.83-4.51); Basophil# 0.04 X10^3/uL; Basophil% 0.9 % (0-1); Eosinophil# 0.07 X10^3/uL; Eosinophils% 1.6 % (0-5); Hematocrit 42.4 % (40-54); Hemoglobin 14.3 g/dL (13.0-16.5); Lymphocyte # 0.82 X10^3/ul (4.0); Lymphocyte % 18.9 % (19-41); Mean Corp Hgb Conc 33.7 g/dL (32-36); Mean Corpuscular Hgb 31.9 pg (27.0-32.0); Mean Corpuscular Volume 94.6 fL (80-94); Mean Platelet Vol. 9.5 fl (6.2-12.0); Monocyte# 0.37 X10^3/uL; Monocyte% 8.5 % (0-10); NRBC Flagged by Analyzer 0 % (0-5); Neutrophil # 3.03 X10^3/uL (2.7-7.7); Neutrophil % 69.9 % (47-70); Platelet Count 170 K/mm3 (150-450); RBC Distribution Width CV 13.8 % (11.6-14.6); RBC Distribution Width SD 46.5 fl (35.1-43.9); Red Blood Count 4.48 M/mm3 (4.6-6.2); White Blood Count 4.3 K/mm3 (4.4-11.0)
[2020-05-04 12:41] LABS: ALB/GLOB Ratio 1.2 RATIO (0.9-2.4); AST(SGOT) 21 U/L (15-37); Alanine Aminotransfer ALT/SGPT 37 U/L (16-61); Albumin, Serum 3.7 g/dL (3.2-5.0); Alkaline Phosphatase 75 U/L (45-117); Anion Gap 3 (5-15); BUN 19 mg/dL (7-18); BUN/Creat Ratio 19.2 RATIO (10-20); Calcium,Total 8.5 mg/dL (8.5-10.1); Chloride 105 mmol/L (98-107); Creatinine, Serum 0.99 mg/dL (0.70-1.30); EST Glomerular Filtration Rate 79 mL/min (>60); Est Glom Filt Rate - Afr Amer 95 mL/min (>60); Glucose 90 mg/dL (74-106); Potassium 3.9 mmol/L (3.5-5.1); Protein, Total 6.7 g/dL (6.4-8.2); Sodium Level 139 mmol/L (136-145)
== END ==
PROVIDERS: PCP Internal Medicine; Referring Provider Internal Medicine Rheumatology; Visit Provider Internal Medicine Rheumatology
DX: M06.4 Inflammatory polyarthropathy (principal); M17.0 Bilateral primary osteoarthritis of knee; K76.0 Fatty (change of) liver, not elsewhere classified; Z79.899 Other long term (current) drug therapy
CPT/HCPCS: 36415; 80053; 85025

== ENCOUNTER → 2020-08-08 09:18 | Outpatient (CLI) | payer MEDICARE, OTHER, SELFPAY ==
[2020-07-10 11:08] VITALS: BMI 25.0
[2020-08-08 12:44] LABS: Absolute Neutrophil Count 3.4 X10^3/uL (2.0-7.7); Basophil# 0.04 X10^3/uL; Basophil% 0.8 % (0-1); Eosinophil# 0.08 X10^3/uL; Eosinophils% 1.7 % (0-5); Hematocrit 44.7 % (40-54); Hemoglobin 14.5 g/dL (13.0-16.5); Lymphocyte % 16.7 % (19-41); Mean Corp Hgb Conc 32.4 g/dL (32-36); Mean Corpuscular Hgb 30.8 pg (27.0-32.0); Mean Corpuscular Volume 94.9 fL (80-94); Mean Platelet Vol. 9.3 fl (6.2-12.0); Monocyte# 0.42 X10^3/uL; Monocyte% 8.8 % (0-10); NRBC Flagged by Analyzer 0 % (0-5); Neutrophil # 3.44 X10^3/uL (2.7-7.7); Neutrophil % 71.8 % (47-70); Platelet Count 211 K/mm3 (150-450); RBC Distribution Width CV 13.1 % (11.6-14.6); RBC Distribution Width SD 45.5 fl (35.1-43.9); Red Blood Count 4.71 M/mm3 (4.6-6.2); White Blood Count 4.8 K/mm3 (4.4-11.0)
[2020-08-08 13:17] LABS: AST(SGOT) 31 U/L (15-37); Alanine Aminotransfer ALT/SGPT 51 U/L (16-61); Albumin, Serum 3.6 g/dL (3.2-5.0); Alkaline Phosphatase 80 U/L (45-117); Anion Gap 6 (5-15); BUN 21 mg/dL (7-18); BUN/Creat Ratio 20.4 RATIO (10-20); Calcium,Total 8.7 mg/dL (8.5-10.1); Chloride 105 mmol/L (98-107); Creatinine, Serum 1.03 mg/dL (0.70-1.30); EST Glomerular Filtration Rate 75 mL/min (>60); Est Glom Filt Rate - Afr Amer 91 mL/min (>60); Globulin 3.5 g/dL (2.2-4.2); Glucose 77 mg/dL (74-106); Potassium 3.7 mmol/L (3.5-5.1); Protein, Total 7.1 g/dL (6.4-8.2); Sodium Level 141 mmol/L (136-145)
== END ==
PROVIDERS: PCP Internal Medicine; Referring Provider Internal Medicine Rheumatology; Visit Provider Internal Medicine Rheumatology
DX: M06.4 Inflammatory polyarthropathy (principal); M17.0 Bilateral primary osteoarthritis of knee; K76.0 Fatty (change of) liver, not elsewhere classified; Z79.899 Other long term (current) drug therapy
CPT/HCPCS: 36415; 80053; 85025

== ENCOUNTER → 2020-09-11 13:46 | Outpatient (CLI) | payer MEDICARE, OTHER, SELFPAY ==
[2020-07-10 11:08] VITALS: BMI 25.0
[2020-09-11 16:07] LABS: Albumin, Serum 3.8 g/dL (3.2-5.0)
== END ==
PROVIDERS: PCP Internal Medicine; Referring Provider Specialist; Visit Provider Specialist
DX: Z01.812 Encounter for preprocedural laboratory examination (principal)
CPT/HCPCS: 36415; 82040

== ENCOUNTER 2020-09-19 06:53 | Observation (INO) | payer MEDICARE, OTHER, SELFPAY ==
[2020-07-10 11:08] VITALS: BMI 25.0
--- NOTE | 2020-08-28 14:51 | HP.PCM_ITS ---
History and Physical History and Physical [facility] Patient Name: Justin Becerra : 1945 From: VAIBHAV MCLEAN PA-C DATE OF SURGERY: 09/19/2020 SCHEDULED PROCEDURE: right total hip arthroplasty HISTORY OF PRESENT ILLNESS: Preoperative history and physical exam was performed on August 27, 2020. This is a 75-year-old male who has been having ongoing pain for over a couple years with his right hip. He states it is been progressively beginning worse. His pain rates 6/10 with activities. His pain is been dull, aching, sharp. Pain is increased with stairs, walking, and jogging. Patient does report startup pain. Pain is located over the lateral hip. He denies any numbness and tingling. Pain does occasionally wake him at night. Patient states he has difficult time putting on his shoes secondary to the pain. He has attempted rest, ice, heat with minimal relief. He has been through physical therapy and home exercises with minimal relief. Denies previous surgery on the right hip. Patient has tried oral medications including nonsteroidal anti-inflammatory and Tylenol. Patient does have a medical history pertinent for rheumatoid arthritis. He is currently using methotrexate and Plaquenil. Patient denies any recent fevers, chills, recent infection. No recent chest pain or shortness of breath. After failing conservative measures and discussing treatment options with Dr. Kasi Wolff, the patient does wish to proceed with a right total hip arthroplasty. We are obtaining surgical clearance from the primary care physician Dr. Carrera. REVIEW OF SYSTEMS: ROS: Const: Denies change in appetite, fever,or weight change. CV: Denies chest pain, heart murmur and irregular heartbeat. Resp: Denies cough, pneumonia, SOB, tuberculosis and wheezing. GI: Denies constipation, diarrhea, difficulty swallowing, heartburn, nausea, bloody stools and vomiting. : Urinary: denies incontinence. Musculo: Denies leg swelling, limp, trouble walking and weakness. Skin: Denies Raynaud's, history of shingles and tattoo. Neuro: Denies ambulatory dysfunction, dizziness, numbness/tingling and tremor. Psych: Denies anxiety, insomnia and stress. Robby/Lymph: Denies anemia, bleeding/bruising tendency and past transfusion. Reviewed, no changes. PAST MEDICAL HISTORY: Advance Care Plan: No Advance Directives Effective Date: 10/17/2016 PMH: Medical Problems: Arthritis, Rheumatoid Arthritis, High Blood Pressure Accidents: None Surgical Hx: Gallbladder - (07/25/2007) Dr. Gutiérrez @ [facility] Anesthesia Complications: None Assistive Devices: Glasses, Hearing Aid Reviewed and updated. SOCIAL HISTORY: SH: Marital: .Occupation: Retired.Work Status: Retired.Hand Dominance: Right- handed. Personal Habits: Cigarette Use: Never Smoked Cigarettes.Alcohol: Occasionally.Drug Use: Denies Use.Enjoy Exercising: Exercises 1-3 X/Week. Reviewed, no changes. VITALS: Ht: 73 Wt: 188lb Wt k.277 BMI: 24.8 BP: 120/72 Pulse: 80 Resp: 20 T: 97.2 T: 36.2C ALLERGIES: No Known Drug Allergy MEDICATIONS: Multi Vitamin 1 tab PO daily, Methotrexate 2.5 mg 1po weekly, Plaquenil 200 mg 2po daily, Folic Acid 1 mg 2po daily, Lisinopril 20 mg 1po daily, Hydrochlorothiazide 12.5 mg 1 PO qd, Loratadine 10 mg 1 po qd, Vitamin D-3 25 mcg (1000 Ut) 1 PO q day, Ibuprofen 200 mg 2 tablets by mouth for pain as needed, Acetaminophen Extra Strength 500 mg take 2 tablets (1,000 mg) every 8 hours as needed for pain PRE-OP EXAM: General appearance:NORMAL Other: Eyes: Conjunctivae and lids: NORMAL Pupils: ERR Ears, Nose, Mouth, and Throat: NORMAL Other: Inspection of lips, teeth and gums: NORMAL Other: Neck: Examination of neck: no masses noted. Respiratory: Assessment of respiratory effort: NORMAL Other: Auscultation of lungs: clear to auscultation no wheezes, rhonchi or rales. Cardiovascular: Auscultation of heart: regular rate and rhythm, no murmurs, gallops or rubs. Exam of carotid arteries: NORMAL Other: Gastrointestinal: Exam of abdomen: soft, nontender, nondistended bowel sounds present. PHYSICAL EXAMINATION: Patient walks with an antalgic gait. Right hip is cool to touch without erythema or signs of infection. Patient has tenderness to palpation of the lateral right hip at the greater trochanteric region. Patient has obligatory external rotation with flexion. Flexion 100, internal rotation 10, external rotation 40. Pain is increased with any range of motion of the right hip. IMAGING STUDIES: Previous x-rays of the right hip from [facility] revealed joint space narrowing with subchondral sclerosis, osteophyte formation consistent with stage IV osteoarthritis with flattening of the femoral head. IMPRESSION: 1. Severe right hip osteoarthritis 2. Rheumatoid arthritis 3. Hypertension PLAN: Dr. Kasi Wolff did discuss and review with the patient all treatment options including surgical versus nonsurgical options. Patient does wish to proceed with the above-stated procedure. Potential risks, benefits, and complications of the procedure were discussed in detail including but not limited to , infection, nerve and blood vessel damage, persistent pain, numbness, tingling, paresthesias, blood clot, pulmonary embolism, and requirement for possible further surgery. The patient expressed full understanding and has no further questions for the doctor. Patient does agree to proceed with the above-stated procedure and has signed the surgery consent form. We discussed the current risks associated with COVID 19. This does include the risk of exposure while in the hospital. Patient was reassured local hospitals have low infection rates and are taking all necessary precautions to avoid exposure to patients. In addition, we discussed strategies that can be used to help limit exposure including those that limit the patient's time in the hospital. Also using strategies to limit the patient's need for continued inpatient services after being discharged from the hospital. Patient was notified that we will need to comply with any screening or testing the hospital wishes to perform or that surgery may be delayed for any positive results. This dictation was created using voice recognition software. Phonetic and/or grammatical errors may exist. ___ I have re-examined the patient. There are no clinical changes since date of exam. ___ See progress notes for changes. ___ Dictated on admission Date: Time: Signature:
--- NOTE | 2020-09-10 10:52 | EKG12_ITS ---
Test Reason : PREOP Blood Pressure : / mmHG Vent. Rate : 079 BPM Atrial Rate : 079 BPM P-R Int : 136 ms QRS Dur : 120 ms QT Int : 394 ms P-R-T Axes : 031 -61 032 degrees QTc Int : 451 ms Normal sinus rhythm Right bundle branch block Left anterior fascicular block Bifascicular block Abnormal ECG Confirmed by RAHUL GANT, JEFFRY ([id number]), fan mail editor MEGAN JENKINS ([id number]) on 09/11/2020 8:46:13 AM Referred By: Kasi Wolff Confirmed By:JEFFRY KAY MD
[2020-09-10 11:33] LABS: Absolute Lymphocyte Count 1.12 X10^3/uL (0.83-4.51); Absolute Neutrophil Count 3.6 X10^3/uL (2.0-7.7); Basophil# 0.05 X10^3/uL; Basophil% 0.9 % (0-1); Eosinophil# 0.07 X10^3/uL; Eosinophils% 1.3 % (0-5); Hematocrit 47.1 % (40-54); Hemoglobin 15.4 g/dL (13.0-16.5); Lymphocyte # 1.12 X10^3/ul (4.0); Lymphocyte % 21.3 % (19-41); Mean Corp Hgb Conc 32.7 g/dL (32-36); Mean Corpuscular Hgb 30.7 pg (27.0-32.0); Mean Corpuscular Volume 93.8 fL (80-94); Monocyte# 0.43 X10^3/uL; Monocyte% 8.2 % (0-10); NRBC Flagged by Analyzer 0 % (0-5); Neutrophil # 3.58 X10^3/uL (2.7-7.7); Neutrophil % 67.9 % (47-70); Platelet Count 181 K/mm3 (150-450); RBC Distribution Width CV 13.2 % (11.6-14.6); RBC Distribution Width SD 44.8 fl (35.1-43.9); Red Blood Count 5.02 M/mm3 (4.6-6.2); White Blood Count 5.3 K/mm3 (4.4-11.0)
[2020-09-10 11:50] LABS: Anion Gap 3 (5-15); BUN 23 mg/dL (7-18); BUN/Creat Ratio 23.3 RATIO (10-20); Calcium,Total 9.4 mg/dL (8.5-10.1); Chloride 105 mmol/L (98-107); Creatinine, Serum 0.99 mg/dL (0.70-1.30); EST Glomerular Filtration Rate 79 mL/min (>60); Est Glom Filt Rate - Afr Amer 95 mL/min (>60); Glucose 74 mg/dL (74-106); Potassium 3.5 mmol/L (3.5-5.1); Sodium Level 142 mmol/L (136-145)
[2020-09-11 09:40] LABS: Magnesium 2.3 mg/dL (1.6-2.6)
[2020-09-19] VITALS (13 sets, daily range): BP systolic 98–139; BP diastolic 59–95; PULSE 66–87; RESP 16–18; TEMP 36.2–36.7; O2SAT 94–100; BMI 25.9
[2020-09-19] MEDS: Gabapentin 600 MG Tablet PO (06:16)
[2020-09-19] MEDS: Acetaminophen 500 MG Tablet 1000 MG PO ×3 (06:16→21:19)
[2020-09-19] MEDS: Celecoxib 200 MG Capsule 400 MG PO (06:16)
[2020-09-19] MEDS: Lactated Ringers 1,000 ML 999 ML IV ×2 (06:43→09:59)
[2020-09-19 06:50] LABS: Bedside Glucose 94 mg/dL (70-110)
--- NOTE | 2020-09-19 06:53 | RAD_ITS ---
STUDY: X-RAY - PELVIS AND RIGHT HIP REASON FOR EXAM: Male, 75 years old. POST OP PORTABLE, RIGHT ANTERIOR TOTAL HIP. TECHNIQUE: 2 views of the pelvis and hip. COMPARISON: Comparison is made with prior study dated 03/05/2020. FINDINGS: Status post right total hip replacement. There is good alignment. Postoperative soft tissue changes. RAD/Hip Min 2 Views (Portable) IMPRESSION: Status post right total hip replacement. There is good alignment. Postoperative soft tissue changes. Electronically Signed: Jaswant Guerrero, at 10:16 EST , Service support ,
[2020-09-19] MEDS: Cefazolin 2 GM in 0.9% Normal Saline 100 ML IV (07:22)
--- NOTE | 2020-09-19 08:19 | RAD_ITS ---
STUDY: X-RAY - PELVIS AND RIGHT HIP REASON FOR EXAM: Male, 75 years old. Anterior in OR TECHNIQUE: 1 views of the pelvis and hip. COMPARISON: Comparison is made with prior study dated 03/05/2020. FINDINGS: Intraoperative imaging provided for right hip replacement. RAD/Hip 1 view with Pelvis IMPRESSION: Intraoperative imaging provided for right hip replacement. Electronically Signed: Jaswant Guerrero, at 10:30 EST , Service support ,
--- NOTE | 2020-09-19 08:43 | OP.PCM_ITS ---
Report of Operation Date of Procedure: 09/19/20 Pre-Operative Diagnosis: Right hip primary osteoarthritis Post-Operative Diagnosis: Right hip primary osteoarthritis Surgery/Procedure Performed:: Right direct anterior minimally invasive total replacement Description of Surgical Findings:: Stable hip with equal leg lengths cigarette carton sealer: Nanette Esparza Type of Anesthesia:: Spinal Anesthesiologist: Parag Devine Special Medications: 2 g Ancef, 1 g TXA at incision, 1 g TXA closure, 10 mg Decadron, joint cocktail (5 mg Duramorph, 30 mL of 0.5% Ropivicaine, 1000 units of epinephrine, 30 mg of Toradol) Specimen's removed: Bony cuts Estimated Blood Loss (mL): 200 mL Fluids Replaced: 1400 mL crystalloid Description of Procedure: Components used: 1. Accolade 2 Pratibha femoral stem size 6 127? 2. [place] trident 2 acetabular shell size 58 mm 3. Pratibha X3 polyethylene F 4. Pratibha Biolox delta 36mm, 0mm femoral head Brief history operative indications: 75 yo M who failed conservative measures for their hip osteoarthritis. X-rays were consistent with osteoarthritis including joint space narrowing, osteophyte formation and subchondral cysts. Total hip replacement was discussed with the patient with risks and benefits including but not limited to blood loss, DVTs, PEs, neurovascular damage, dislocation, general risks of anesthesia including loss of life. Patient demonstrated an understanding medical clearance is obtained the patient was consented for surgery. Procedure: On the date of procedure the patient's R hip was marked in the preoperative area. Patient was then taken back to the operating room where anesthesia assum ed control of the C-spine and airway and administered anesthetic. Patient was transferred to the operating table and placed in the supine position. The hips were placed at the break of the bed and a sacral bump was placed. The R lower extremity was then prepped out in a sterile fashion using chlorhexidine while the surgeon scrubbed. The PA was vital in the positioning of the patient. Upon reentering the room the R lower extremity was draped in the standard orthopedic fashion and the incision was marked. A timeout was called and everyone agreed upon the side, the site, the procedure be performed, antibody given, and patient's identity. At this time incision was made through skin, subcutaneous tissue, and fat down to fascia. The fascia was then incised and the TFL was retracted laterally. A retractor was placed on the lateral border of the femoral neck. Attention was directed to the inferior portion of the approach and all crossing vessels were identified and appropriately coagulated. A retractor was then placed on the medial portion of the femoral neck. The anterior capsule was then cleared of all soft tissue and then H shaped capsulotomy was made. The retractors were then placed inside the capsule. The femoral neck was identified and a cleanup cut was made. At this time a power corkscrew was used to remove the femoral head. Attention was then turned toward the acetabulum where the soft tissues were appropriately retracted and the acetabulum was sequentially reamed to 58 mm. A 58 mm cup was then selected and impacted into place. Acetabular liner was impacted into place and locking mechanism was verified. The position of the acetabular cup was then verified under live fluoroscopy. Attention was then turned to the femur. Soft tissue releases on the medial and lateral femoral neck were appropriately done, the leg was externally rotated and lateralized. A Hernandez retractor was placed medially and proximally to the greater trochanter this allowed appropriate visualization and exposure of the femoral canal. Rongeour was then used to remove excess lateral bone. A canal finder and entry broach were used to open the proximal canal. Once we verified we were down the femoral canal we subsequently broached up to a size 6 femur. The appropriate neck was placed in the previously selected head was trialed with a 0 mm neck. Traction was pulled and the hip was reduced with internal rotation. Once it was appropriately reduced and stability was checked. There was minimal shuck, equal leg lengths and appropriate stability with hyperextension and external rotation as well as with 90? flexion and internal rotation. Fluoroscopy was then also used to verify the position of the components and leg lengths using the contralateral side for comparison. The trial components were then dislocated the proximal femur was again exposed and the components were removed from the wound. The final components were verified and opened. The wound was copiously irrigated out with normal saline. The acetabulum was checked for any residual debris. The final components were placed and impacted. Traction and internal rotation were again used to reduce the hip. After adequate reduction the hip remained stable with appropriate leg lengths. The final components were once again checked with live fluoroscopy and were found to be satisfactory. The wound was then copiously irrigated with normal saline once more, and hemostasis was obtained. Closure was then done using #1 Vicryl runner to close the fascia. A 2-0 vicryl interuppted sutures were used to close the subcutaneous skin. A 3-0 Monocryl and Steri-Strips were used for final skin closure. A Silverlon dressing was placed. Patient was awakened by anesthesia and transferred to the [facility]. Patient was then transferred to the PACU for recovery. Postoperative plan: Patient will get 24 hours postop antibiotics. Patient will get in-house physical therapy and will be weight-bear as tolerated. Patient will follow up in office in 2 weeks for a wound check and x-rays. Aspirin 81 mg twice daily. - Complications No intraoperative complications - Admit VTE Documentation VTE Present on Admission: No VTE Mechan Device Prophylaxis: SCD's, Thigh High DINA Hose VTE Pharm Prophylaxis ordered?: Yes
[2020-09-19] MEDS: Lactated Ringers 1,000 ML 125 ML IV (11:14)
[2020-09-19] MEDS: hydroCHLOROthiazide 12.5mg 12.5 MG PO (13:21)
--- NOTE | 2020-09-19 13:40 | NURSING ---
RN CM Assessment Introduced role of RN CM to patient.? Patient is alert, oriented and able?to participate in RN CM Assessment. ?Care providers, pharmacy, and demographics verified. Admit Dx: Rt anterior THR Barriers/Issues: None PCP: Zane Carrera Specialists: Or[place]- Dr Wolff, Derm, Rheum- Dr Torres Preferred Pharmacy: [facility] Insurance: [facility] A/B, [facility] Rx Benefit:?Yes ?LNOK: - Liz Becerra LW/HPOA: None. Given information with [employer] work rack card and aware can return as an outpatient to complete. Aware to notify staff if chooses to complete on this admission. Living Arrangements: Lives in a Bi-level home with , plan to stay on ground level in family room and has set up while healing. 1 step to enter through garage.? ADL?s: Independent with ambulation and ADLs Transportation: Both patient and his drive. will transport upon DC. DME: None, states has a FWW, Cane, Shower chair at home that was his 's that he can use. HHC: None SNF: None Goal: Home with outpatient PT through [facility]. Start date Thursday09/23/2020. Denies any other questions, issues, or concerns with DC planning at this time. Aware RNCM remains available for any emerging needs. DC PLAN: Home with Outpatient PT-[facility] 09/23/2020. NAZARIO Jaramillo
[2020-09-19] MEDS: Cefazolin 1 GM/50 ML BAG IV ×2 (15:32→22:05)
[2020-09-19] MEDS: Aspirin 81 MG TAB.CHEW PO (16:24)
[2020-09-19] MEDS: Folic Acid 1 MG Tablet PO (16:24)
[2020-09-19] MEDS: Ensure Surgery 237 ML LIQUID PO (16:24)
[2020-09-19] MEDS: Hydroxychloroquine 200 MG Tablet PO (16:24)
[2020-09-19] MEDS: Senna/Docusate Sodium 1 Tablet 2 TABLET PO (21:19)
[2020-09-20 03:27] VITALS: BP 115/55; PULSE 67; RESP 18; TEMP 36.6; O2SAT 94
[2020-09-20] MEDS: Acetaminophen 500 MG Tablet 1000 MG PO (05:59)
--- NOTE | 2020-09-20 06:20 | PCS.PANDOC ---
PANDEMIC DOCUMENTATION INITIATED: Date: 09/19/2020 Time: 2
[2020-09-20 07:14] LABS: Hematocrit 40.9 % (40-54); Hemoglobin 13.7 g/dL (13.0-16.5); Mean Corp Hgb Conc 33.5 g/dL (32-36); Mean Corpuscular Hgb 30.9 pg (27.0-32.0); Mean Corpuscular Volume 92.1 fL (80-94); Mean Platelet Vol. 9.5 fl (6.2-12.0); Platelet Count 210 K/mm3 (150-450); RBC Distribution Width CV 13.5 % (11.6-14.6); Red Blood Count 4.44 M/mm3 (4.6-6.2)
[2020-09-20 07:36] LABS: Anion Gap 6 (5-15); BUN 24 mg/dL (7-18); BUN/Creat Ratio 26.3 RATIO (10-20); Calcium,Total 8.6 mg/dL (8.5-10.1); Chloride 105 mmol/L (98-107); Creatinine, Serum 0.91 mg/dL (0.70-1.30); EST Glomerular Filtration Rate 87 mL/min (>60); Est Glom Filt Rate - Afr Amer 105 mL/min (>60); Estimated Creatinine Clearance 79.35 ml/min; Glucose 100 mg/dL (74-106); Potassium 3.9 mmol/L (3.5-5.1); Sodium Level 139 mmol/L (136-145)
[2020-09-20 09:30] VITALS: BP 136/74; PULSE 74; RESP 18; TEMP 36.4; O2SAT 95
--- NOTE | 2020-09-20 09:36 | PN.ORTHO_ITS ---
Subjective: The patient was sitting in bedside chair upon examination. Patient denies any chest pain, shortness of breath, dizziness, lightheadedness, nausea or vomiting, or calf pain. Pain is controlled on medications. No adverse overnight events. Patient is doing overall very well postoperatively. Objective: Vital signs stable and afebrile. Patient is able to plantarflex and dorsiflex actively. Sensation is intact to light touch to saphenous, sural, superficial and deep peroneal, and tibial distribution. Dressing is clean dry and intact. Negative Homans bilaterally, negative signs and symptoms of DVT. - Physical Exam Vitals/I&O's: Vital Signs Temp Pulse Resp BP Pulse Ox 97.8 F 67 18 115/55 L 94 09/20/20 03:27 09/20/20 03:27 09/20/20 03:27 09/20/20 03:27 09/20/20 03:27 Oxygen Flow Rate (L/min) 6 Oxygen Delivery Method Room Air Weight: 86.9 kg Body Mass Index (BMI) 25.9 Intake and Output for Last 24 Hours 09/18/20 09/19/20 09/20/20 23:59 23:59 23:59 Intake Total 3667.92 / 3667.92 64.25 / 64.25 Balance 3667.92 / 3667.92 64.25 / 64.25 General: Alert, Oriented x3, Cooperative, No apparent distress Microbiology Past 72 Hours 09/17/20 14:30 Swab (Method) Nasal Screen MRSA/MSSA - Final 09/17/20 14:30 Interface Orders SARS-CoV-2 Antigen (Rapid) - Final Laboratory Results 09/20/20 06:16: WBC 14.0 H, RBC 4.44 L, Hgb 13.7, Hct 40.9, MCV 92.1, MCH 30.9, MCHC 33.5, RDW Std Deviation 45.0 H, RDW Coeff of Filemon 13.5, Plt Count 210, MPV 9.5 09/20/20 06:16: Sodium 139, Potassium 3.9, Chloride 105, Carbon Dioxide 28.0, Anion Gap 6, BUN 24 H, Creatinine 0.91, Estim Creat Clear Calc 79.35, Est GFR (MDRD) Af Amer 105, Est GFR (MDRD) Non-Af 87, BUN/Creatinine Ratio 26.3 H, Glucose 100, Calcium 8.6 Current Medications Acetaminophen (Acetaminophen 500 Mg Tablet) 1,000 mg PO Q8 [facility] Last Admin: 09/20/20 05:59 Dose: 1,000 mg Documented by: Aspirin (Aspirin 81 Mg Tab.Chew) [facility] Last Admin: 09/19/20 16:24 Dose: 81 mg Documented by: Cholecalciferol (Cholecalciferol (Vit D3) 1,000 Unit (25mcg)) 1,[facility] Enteral Nutritional Formula (Ensure Surgery 237 Ml Liquid) 237 ml PO TIDCM [facility] Last Admin: 09/19/20 16:24 Dose: 237 ml Documented by: Famotidine (Famotidine 20 Mg Tablet) 20 mg PO DAILY [facility] Last Admin: 09/19/20 11:29 Dose: Not Given Documented by: Folic Acid (Folic Acid 1 Mg Tablet) [facility] Last Admin: 09/19/20 16:24 Dose: 1 mg Documented by: Hydrochlorothiazide (Hydrochlorothiazide 12.5mg) 12.5 mg PO QAM [facility] Last Admin: 09/19/20 13:21 Dose: 12.5 mg Documented by: Hydroxychloroquine Sulfate (Hydroxychloroquine 200 Mg Tablet) [facility] Last Admin: 09/19/20 16:24 Dose: 200 mg Documented by: Sodium Chloride () 250 mls @ 15 mls/hr IV .[id number] PRN PRN Reason: Saline Flush Sodium Chloride () 250 mls @ 15 mls/hr IV .[id number] PRN PRN Reason: Additional IVPB Infusion Ketorolac Tromethamine (Ketorolac 15 Mg/Ml Vial) 15 mg IV Q6H PRN PRN PRN Reason: Pain Score 1-5 Stop: 09/21/20 06:53 Lisinopril (Lisinopril 20 Mg Tablet) 20 mg PO DAILY [facility] Loratadine (Loratadine 10 Mg Tablet) 10 mg PO DAILY PRN PRN Reason: ALLERGIES Meloxicam (Meloxicam 7.5 Mg Tablet) 7.5 mg PO BID [facility] Methotrexate (Methotrexate 2.5 Mg Tablet) 20 mg PO WE [facility] Last Admin: 09/19/20 11:29 Dose: Not Given Documented by: Morphine Sulfate (Morphine 2 Mg/Ml Syringe) 2 - 4 mg IV Q2H PRN PRN PRN Reason: Pain Score 4-10 Morphine Sulfate (Morphine 4 Mg/Ml Syringe) 2 - 4 mg IV Q2H PRN PRN PRN Reason: Pain Score 4-10 Ondansetron HCl (Ondansetron 4 Mg/2 Ml Vial) 4 mg IV Q8H PRN PRN PRN Reason: NAUSEA Oxycodone HCl (Oxycodone 5 Mg Tablet) 5 - 10 mg PO Q4H PRN PRN PRN Reason: Pain Score 4-10 Promethazine HCl (Promethazine 25 Mg/Ml Syringe) 12.5 mg IM Q6H PRN PRN; Protocol PRN Reason: NAUSEA/VOMITING Senna/Docusate Sodium (Senna/Docusate Sodium 1 Tablet) 2 tablet PO BID [facility] Last Admin: 09/19/20 21:19 Dose: 2 tablet Documented by: Sodium Chloride (0.9% Saline Lock 10 Ml Syringe) 10 - 40 ml IV UD PRN PRN Reason: SALINE FLUSH Medical Necessity - Tobacco Use Smoking Status: Never smoker Assessment/Plan All Active Problems (Last Reviewed 07/10/20 @ 11:07 by Graciela Vences) Chest pain (Acute) Right shoulder pain (Acute) 1. S/P right direct anterior total hip arthroplasty POD #1 2. Continue Pain Medications: Tylenol, meloxicam, oxycodone 3. DVT Prophylaxis: Take 81 mg aspirin twice daily for 4 weeks postoperatively for DVT prophylaxis 4. PT/OT: Weightbearing as tolerated 5. H & H: 13.7/40.9, asymptomatic. 6. Reactive leukocytosis: Currently 14.0, afebrile. Patient did receive Decadron intraoperatively 7. Encouraged Incentive Spirometry 8. Disposition: Orthopedically stable, plan will be for discharge home today. Patient has outpatient physical therapy established. He will follow-up per postop instructions. Prescriptions will be E scribed to [facility] [place]. I have reviewed the [place] Automated Rx Reporting System (OARRS) report for this patient for refill pattern and other prescriber involvement as part of the appropriate surveillance for the provision of acute and chronic controlled medications. The report was requested and reviewed on the date of this entry and was considered in the prescribing process.
--- NOTE | 2020-09-20 09:42 | DCINST_ITS ---
Discharge Diet: No Restrictions Discharge Activity: May Not Drive - while taking narcotic pain medications. May shower in (days): 1 - Okay to shower if dressing is intact to skin. Turn dressing away from water. Do not submerge underwater for 6 weeks postoperatively. Weight Bearing Status: Weight bearing as tolerated Elevate: Operative Extremity Additional Activity Instructions:: Wear elastic stockings for 2 weeks. DO NOT use alcohol with narcotic pain medication. DO NOT make important decisions while taking narcotic medication. If you have problems with taking your medication (rash, itching, nausea, etc.) call the office at once. Call your doctor if your incision/area has: Increased Pain/ Swelling, Increased Redness, Foul Smelling Discharge Call your doctor if you observe: Fever of 101 or Higher Remove Dressing in (days):: 4 - Okay to remove dressing on September 24, 2020 Additional Instructions: Follow [facility] Post-op Instructions. Once postoperative dressing has been removed only use gentle soap and water over the incision. Do not use any ointments, Neosporin, salves, alcohol pads over the incision for 6 weeks postoperatively. Do not submerge underwater for 6 weeks postoperatively. No driving for 6 weeks postoperatively due to right total hip arthroplasty. Allergies/Adverse Reactions: Allergies No Known Allergies Allergy (Verified 09/19/20 06:18) Medications to take at Discharge hydroxychloroquine 200 mg tablet 200 mg PO BID 10/07/17 methotrexate sodium 2.5 mg tablet 20 mg PO WE 04/13/18 Folic Acid 1 mg PO BID 10/21/19 Multivitamin [Multivitamins] 1 tab PO DAILY 10/21/19 loratadine 10 mg tablet 10 mg PO DAILY PRN 03/05/20 lisinopril 20 mg tablet 20 mg PO DAILY #90 tab 06/25/20 multivitamin 1 cap PO DAILY 07/10/20 Cholecalciferol (VIT D3) [Vitamin D3] 1,000 unit PO DAILY 09/05/20 Hydrochlorothiazide 12.5 mg PO QAM 09/05/20 Acetaminophen [Tylenol] 1,000 mg PO Q8 #100 tab 09/20/20 Aspirin [Aspirin, Baby] 81 mg PO BIDCM #60 tab 09/20/20 Famotidine [Pepcid] 20 mg PO DAILY #30 tab 09/20/20 Meloxicam [Mobic] 7.5 mg PO BID #60 tab 09/20/20 Oxycodone [Oxyir] 5 - 10 mg PO Q4H PRN PRN 4 Days #48 tab 09/20/20 Senna/Docusate Sodium [Senokot-S] 2 tab PO BID #10 tab 09/20/20 The following prescriptions were given: Aspirin [Aspirin, Baby] 81 mg PO BIDCM #60 tab Transmission Status: Pending to [facility] Meloxicam [Mobic] 7.5 mg PO BID #60 tab Transmission Status: Pending to [facility] Oxycodone [Oxyir] 5 - 10 mg PO Q4H PRN PRN 4 Days #48 tab PRN Reason: Pain Score 4-10 Prescription Printed Famotidine [Pepcid] 20 mg PO DAILY #30 tab Transmission Status: Pending to [facility] Senna/Docusate Sodium [Senokot-S] 2 tab PO BID #10 tab Transmission Status: Pending to [facility] Acetaminophen [Tylenol] 1,000 mg PO Q8 #100 tab Transmission Status: Pending to [facility] Primary Care Physician: Zane Carrera MD [Primary Care Provider] - Test Results: Test results from this visit will be discussed in further detail at your follow- up appointment, if applicable. Please Follow Up With: Physical Therapy When: 09/24/20 @ 10:00 am Please Follow Up With: Morris Palomo PA-C When: 10/03/20 @ 10:00 am
[2020-09-20] MEDS: Aspirin 81 MG TAB.CHEW PO (10:37)
[2020-09-20] MEDS: Famotidine 20 MG Tablet PO (10:38)
[2020-09-20] MEDS: Lisinopril 20 MG Tablet PO (10:38)
[2020-09-20] MEDS: Senna/Docusate Sodium 1 Tablet 2 TABLET PO (10:38)
[2020-09-20] MEDS: Ensure Surgery 237 ML LIQUID PO ×2 (10:38→12:39)
[2020-09-20] MEDS: Hydroxychloroquine 200 MG Tablet PO (10:38)
[2020-09-20] MEDS: hydroCHLOROthiazide 12.5mg 12.5 MG PO (10:38)
[2020-09-20] MEDS: Folic Acid 1 MG Tablet PO (10:38)
[2020-09-20 14:30] VITALS: BP 136/74; PULSE 74; RESP 18; TEMP 36.4; O2SAT 95
== END 2020-09-20 14:32 | disposition home or self-care (01) ==
LOC: MS3 09:15 → SDC 09:24 → MS3 09:24
PROVIDERS: Anesthesiology; Admitting Provider Specialist; PCP Internal Medicine; Referring Provider Specialist; Visit Provider Specialist
PROC: (CPT 27284; principal; 2020-09-19 07:05)
DX: M16.11 Unilateral primary osteoarthritis, right hip (principal); M06.9 Rheumatoid arthritis, unspecified; Z20.828 Contact with and (suspected) exposure to other viral communicable diseases; Z79.899 Other long term (current) drug therapy; I10 Essential (primary) hypertension; Z87.19 Personal history of other diseases of the digestive system; Z85.828 Personal history of other malignant neoplasm of skin
CPT/HCPCS: 01214; 27130; 36415; 73501; 73502; 76000; 80048; 82962; 83735; 85025; 85027; 87081; 87426; 93005; 96361; 96365; 96366; 97110; 97116; 97162; 97166; 97530; 97535; 99218; 99251; C1776; C9803; J7120; G0378; G0379; G0463; J2405

== ENCOUNTER → 2020-11-06 12:31 | Outpatient (CLI) | payer MEDICARE, OTHER, SELFPAY ==
[2020-09-19 11:16] VITALS: BMI 25.9
[2020-11-06 15:19] LABS: Absolute Neutrophil Count 3.7 X10^3/uL (2.0-7.7); Basophil# 0.05 X10^3/uL; Basophil% 0.9 % (0-1); Eosinophil# 0.09 X10^3/uL; Eosinophils% 1.7 % (0-5); Hematocrit 41.9 % (40-54); Hemoglobin 13.6 g/dL (13.0-16.5); Lymphocyte % 18.5 % (19-41); Mean Corp Hgb Conc 32.5 g/dL (32-36); Mean Corpuscular Hgb 29.8 pg (27.0-32.0); Mean Corpuscular Volume 91.7 fL (80-94); Mean Platelet Vol. 9.4 fl (6.2-12.0); Monocyte# 0.53 X10^3/uL; Monocyte% 9.8 % (0-10); NRBC Flagged by Analyzer 0 % (0-5); Neutrophil # 3.73 X10^3/uL (2.7-7.7); Neutrophil % 68.7 % (47-70); Platelet Count 232 K/mm3 (150-450); RBC Distribution Width CV 13.8 % (11.6-14.6); RBC Distribution Width SD 46.1 fl (35.1-43.9); Red Blood Count 4.57 M/mm3 (4.6-6.2); White Blood Count 5.4 K/mm3 (4.4-11.0)
[2020-11-06 15:28] LABS: ALB/GLOB Ratio 1.2 RATIO (0.9-2.4); AST(SGOT) 26 U/L (15-37); Alanine Aminotransfer ALT/SGPT 32 U/L (16-61); Albumin, Serum 3.7 g/dL (3.2-5.0); Alkaline Phosphatase 88 U/L (45-117); Anion Gap 9 (5-15); BUN 21 mg/dL (7-18); BUN/Creat Ratio 22.2 RATIO (10-20); Calcium,Total 8.9 mg/dL (8.5-10.1); Chloride 105 mmol/L (98-107); Creatinine, Serum 0.94 mg/dL (0.70-1.30); EST Glomerular Filtration Rate 83 mL/min (>60); Est Glom Filt Rate - Afr Amer 101 mL/min (>60); Globulin 3.2 g/dL (2.2-4.2); Glucose 89 mg/dL (74-106); Potassium 3.7 mmol/L (3.5-5.1); Protein, Total 6.9 g/dL (6.4-8.2); Sodium Level 142 mmol/L (136-145)
== END ==
PROVIDERS: PCP Internal Medicine; Referring Provider Internal Medicine Rheumatology; Visit Provider Internal Medicine Rheumatology
DX: M06.4 Inflammatory polyarthropathy (principal); M17.0 Bilateral primary osteoarthritis of knee; K76.0 Fatty (change of) liver, not elsewhere classified; Z79.899 Other long term (current) drug therapy
CPT/HCPCS: 36415; 80053; 85025

== ENCOUNTER 2020-12-06 13:31 | Outpatient (RCR) | payer MEDICARE, OTHER, SELFPAY ==
[2020-11-09 10:08] VITALS: BMI 26.0
[2020-12-06] MEDS: COVID-19 VACC, MRNA(PFIZER)/PF 30 MCG/0.3 ML SYRINGE IM (12:41)
[2020-12-27] MEDS: COVID-19 VACC, MRNA(PFIZER)/PF 30 MCG/0.3 ML SYRINGE IM (12:35)
== END 2020-12-06 23:59 ==
LOC: IMMUN 13:31
PROVIDERS: PCP Internal Medicine; Visit Provider Family Medicine
DX: Z23 Encounter for immunization (principal)
CPT/HCPCS: 0001A; 0002A

== ENCOUNTER → 2021-02-05 13:13 | Outpatient (CLI) | payer MEDICARE, OTHER, SELFPAY ==
[2020-11-09 10:08] VITALS: BMI 26.0
[2021-02-05 13:33] LABS: Absolute Lymphocyte Count 1.22 X10^3/uL (0.83-4.51); Absolute Neutrophil Count 3.3 X10^3/uL (2.0-7.7); Basophil# 0.04 X10^3/uL; Basophil% 0.8 % (0-1); Eosinophils% 1.9 % (0-5); Hematocrit 44.9 % (40-54); Hemoglobin 14.7 g/dL (13.0-16.5); Lymphocyte # 1.22 X10^3/ul (0.83-4.51); Lymphocyte % 23.3 % (19-41); Mean Corp Hgb Conc 32.7 g/dL (32-36); Mean Corpuscular Volume 91.6 fL (80-94); Mean Platelet Vol. 9.3 fl (6.2-12.0); Monocyte# 0.59 X10^3/uL; Monocyte% 11.3 % (0-10); NRBC Flagged by Analyzer 0 % (0-5); Neutrophil # 3.26 X10^3/uL (2.7-7.7); Neutrophil % 62.3 % (47-70); Platelet Count 175 K/mm3 (150-450); RBC Distribution Width CV 13.6 % (11.6-14.6); RBC Distribution Width SD 45.2 fl (35.1-43.9); White Blood Count 5.2 K/mm3 (4.4-11.0)
[2021-02-05 14:08] LABS: ALB/GLOB Ratio 1.2 RATIO (0.9-2.4); AST(SGOT) 24 U/L (15-37); Alanine Aminotransfer ALT/SGPT 39 U/L (16-61); Albumin, Serum 3.7 g/dL (3.2-5.0); Alkaline Phosphatase 78 U/L (45-117); Anion Gap 2 (5-15); BUN 24 mg/dL (7-18); Calcium,Total 8.9 mg/dL (8.5-10.1); Chloride 106 mmol/L (98-107); EST Glomerular Filtration Rate 78 mL/min (>60); Est Glom Filt Rate - Afr Amer 94 mL/min (>60); Glucose 81 mg/dL (74-106); Potassium 3.8 mmol/L (3.5-5.1); Protein, Total 6.7 g/dL (6.4-8.2); Sodium Level 140 mmol/L (136-145)
== END ==
PROVIDERS: PCP Internal Medicine; Referring Provider Internal Medicine Rheumatology; Visit Provider Internal Medicine Rheumatology
DX: M06.4 Inflammatory polyarthropathy (principal); M17.0 Bilateral primary osteoarthritis of knee; K76.0 Fatty (change of) liver, not elsewhere classified; Z79.899 Other long term (current) drug therapy
CPT/HCPCS: 36415; 80053; 85025

== ENCOUNTER → 2021-04-26 11:31 | Outpatient (CLI) | payer MEDICARE, OTHER, SELFPAY ==
[2021-02-08 11:15] VITALS: BMI 25.9
[2021-04-26 14:56] LABS: Absolute Lymphocyte Count 0.85 X10^3/uL (0.83-4.51); Absolute Neutrophil Count 2.8 X10^3/uL (2.0-7.7); Basophil# 0.05 X10^3/uL; Basophil% 1.2 % (0-1); Eosinophil# 0.13 X10^3/uL; Eosinophils% 3.1 % (0-5); Hemoglobin 14.3 g/dL (13.0-16.5); Lymphocyte # 0.85 X10^3/ul (0.83-4.51); Mean Corp Hgb Conc 33.3 g/dL (32-36); Mean Corpuscular Hgb 30.9 pg (27.0-32.0); Mean Corpuscular Volume 92.9 fL (80-94); Mean Platelet Vol. 9.3 fl (6.2-12.0); Monocyte# 0.41 X10^3/uL; Monocyte% 9.6 % (0-10); NRBC Flagged by Analyzer 0 % (0-5); Neutrophil # 2.81 X10^3/uL (2.7-7.7); Neutrophil % 65.9 % (47-70); Platelet Count 195 K/mm3 (150-450); RBC Distribution Width CV 14.1 % (11.6-14.6); RBC Distribution Width SD 47.4 fl (35.1-43.9); Red Blood Count 4.63 M/mm3 (4.6-6.2); White Blood Count 4.3 K/mm3 (4.4-11.0)
[2021-04-26 15:28] LABS: ALB/GLOB Ratio 1.4 RATIO (0.9-2.4); AST(SGOT) 34 U/L (15-37); Alanine Aminotransfer ALT/SGPT 44 U/L (16-61); Albumin, Serum 3.8 g/dL (3.2-5.0); Alkaline Phosphatase 80 U/L (45-117); Anion Gap 6 (5-15); BUN 22 mg/dL (7-18); BUN/Creat Ratio 23.7 RATIO (10-20); Calcium,Total 8.7 mg/dL (8.5-10.1); Chloride 104 mmol/L (98-107); Creatinine, Serum 0.93 mg/dL (0.70-1.30); EST Glomerular Filtration Rate 85 mL/min (>60); Est Glom Filt Rate - Afr Amer 103 mL/min (>60); Globulin 2.8 g/dL (2.2-4.2); Glucose 92 mg/dL (74-106); Potassium 3.6 mmol/L (3.5-5.1); Protein, Total 6.6 g/dL (6.4-8.2); Sodium Level 141 mmol/L (136-145)
== END ==
PROVIDERS: PCP Internal Medicine; Referring Provider Internal Medicine Rheumatology; Visit Provider Internal Medicine Rheumatology
DX: M06.4 Inflammatory polyarthropathy (principal); M17.0 Bilateral primary osteoarthritis of knee; K76.0 Fatty (change of) liver, not elsewhere classified; Z79.899 Other long term (current) drug therapy
CPT/HCPCS: 36415; 80053; 85025

== ENCOUNTER → 2021-07-15 11:25 | Outpatient (CLI) | payer MEDICARE, OTHER, SELFPAY ==
[2021-07-15 15:21] LABS: Absolute Lymphocyte Count 0.97 X10^3/uL (0.83-4.51); Absolute Neutrophil Count 3.2 X10^3/uL (2.0-7.7); Basophil# 0.05 X10^3/uL; Eosinophil# 0.11 X10^3/uL; Eosinophils% 2.3 % (0-5); Hematocrit 44.1 % (40-54); Hemoglobin 14.5 g/dL (13.0-16.5); Lymphocyte # 0.97 X10^3/ul (0.83-4.51); Lymphocyte % 20.3 % (19-41); Mean Corp Hgb Conc 32.9 g/dL (32-36); Mean Corpuscular Hgb 30.7 pg (27.0-32.0); Mean Corpuscular Volume 93.2 fL (80-94); Mean Platelet Vol. 9.8 fl (6.2-12.0); Monocyte# 0.41 X10^3/uL; Monocyte% 8.6 % (0-10); NRBC Flagged by Analyzer 0 % (0-5); Neutrophil # 3.23 X10^3/uL (2.7-7.7); Neutrophil % 67.6 % (47-70); Platelet Count 211 K/mm3 (150-450); RBC Distribution Width CV 13.1 % (11.6-14.6); RBC Distribution Width SD 44.2 fl (35.1-43.9); Red Blood Count 4.73 M/mm3 (4.6-6.2); White Blood Count 4.8 K/mm3 (4.4-11.0)
[2021-07-15 15:45] LABS: ALB/GLOB Ratio 1.2 RATIO (0.9-2.4); AST(SGOT) 27 U/L (15-37); Alanine Aminotransfer ALT/SGPT 40 U/L (16-61); Albumin, Serum 3.6 g/dL (3.2-5.0); Alkaline Phosphatase 78 U/L (45-117); Anion Gap 6 (5-15); BUN 22 mg/dL (7-18); BUN/Creat Ratio 21.8 RATIO (10-20); Calcium,Total 9.1 mg/dL (8.5-10.1); Chloride 106 mmol/L (98-107); Creatinine, Serum 1.01 mg/dL (0.70-1.30); EST Glomerular Filtration Rate 77 mL/min (>60); Est Glom Filt Rate - Afr Amer 93 mL/min (>60); Globulin 3.1 g/dL (2.2-4.2); Glucose 80 mg/dL (74-106); Potassium 3.6 mmol/L (3.5-5.1); Protein, Total 6.7 g/dL (6.4-8.2); Sodium Level 142 mmol/L (136-145)
== END ==
PROVIDERS: PCP Internal Medicine; Referring Provider Internal Medicine Rheumatology; Visit Provider Internal Medicine Rheumatology
DX: M06.4 Inflammatory polyarthropathy (principal); M17.0 Bilateral primary osteoarthritis of knee; K76.0 Fatty (change of) liver, not elsewhere classified; Z79.899 Other long term (current) drug therapy
CPT/HCPCS: 36415; 80053; 85025

== ENCOUNTER → 2021-09-25 11:33 | Outpatient (CLI) | payer MEDICARE, OTHER, SELFPAY ==
[2021-09-25 15:08] LABS: Absolute Lymphocyte Count 1.04 X10^3/uL (0.83-4.51); Absolute Neutrophil Count 2.8 X10^3/uL (2.0-7.7); Basophil# 0.06 X10^3/uL; Basophil% 1.4 % (0-1); Eosinophil# 0.06 X10^3/uL; Eosinophils% 1.4 % (0-5); Hematocrit 46.7 % (40-54); Hemoglobin 15.2 g/dL (13.0-16.5); Lymphocyte # 1.04 X10^3/ul (0.83-4.51); Lymphocyte % 23.9 % (19-41); Mean Corp Hgb Conc 32.5 g/dL (32-36); Mean Corpuscular Hgb 30.5 pg (27.0-32.0); Mean Corpuscular Volume 93.6 fL (80-94); Mean Platelet Vol. 9.3 fl (6.2-12.0); Monocyte# 0.34 X10^3/uL; Monocyte% 7.8 % (0-10); NRBC Flagged by Analyzer 0 % (0-5); Neutrophil # 2.83 X10^3/uL (2.7-7.7); Platelet Count 194 K/mm3 (150-450); RBC Distribution Width CV 13.9 % (11.6-14.6); RBC Distribution Width SD 47.2 fl (35.1-43.9); Red Blood Count 4.99 M/mm3 (4.6-6.2); White Blood Count 4.4 K/mm3 (4.4-11.0)
[2021-09-25 15:24] LABS: ALB/GLOB Ratio 1.2 RATIO (0.9-2.4); AST(SGOT) 30 U/L (15-37); Alanine Aminotransfer ALT/SGPT 46 U/L (16-61); Albumin, Serum 3.8 g/dL (3.2-5.0); Alkaline Phosphatase 76 U/L (45-117); Anion Gap 6 (5-15); BUN 25 mg/dL (7-18); BUN/Creat Ratio 23.4 RATIO (10-20); Calcium,Total 9.2 mg/dL (8.5-10.1); Chloride 104 mmol/L (98-107); Creatinine, Serum 1.07 mg/dL (0.70-1.30); EST Glomerular Filtration Rate 72 mL/min (>60); Est Glom Filt Rate - Afr Amer 87 mL/min (>60); Globulin 3.1 g/dL (2.2-4.2); Glucose 74 mg/dL (74-106); Potassium 3.6 mmol/L (3.5-5.1); Protein, Total 6.9 g/dL (6.4-8.2); Sodium Level 141 mmol/L (136-145)
== END ==
PROVIDERS: PCP Internal Medicine; Referring Provider Internal Medicine Rheumatology; Visit Provider Internal Medicine Rheumatology
DX: M06.4 Inflammatory polyarthropathy (principal); M17.0 Bilateral primary osteoarthritis of knee; K76.0 Fatty (change of) liver, not elsewhere classified; Z79.899 Other long term (current) drug therapy
CPT/HCPCS: 36415; 80053; 85025

== ENCOUNTER 2021-12-26 11:20 | Outpatient (CLI) | payer MEDICARE, OTHER, SELFPAY ==
[2021-12-26 12:03] LABS: Absolute Lymphocyte Count 1.04 X10^3/uL (0.83-4.51); Absolute Neutrophil Count 3.5 X10^3/uL (2.0-7.7); Basophil# 0.04 X10^3/uL; Basophil% 0.8 % (0-1); Eosinophil# 0.12 X10^3/uL; Eosinophils% 2.3 % (0-5); Hematocrit 41.3 % (40-54); Hemoglobin 14.3 g/dL (13.0-16.5); Lymphocyte # 1.04 X10^3/ul (0.83-4.51); Lymphocyte % 20.1 % (19-41); Mean Corp Hgb Conc 34.6 g/dL (32-36); Mean Corpuscular Hgb 31.2 pg (27.0-32.0); Mean Corpuscular Volume 90.2 fL (80-94); Mean Platelet Vol. 9.3 fl (6.2-12.0); Monocyte# 0.48 X10^3/uL; Monocyte% 9.3 % (0-10); NRBC Flagged by Analyzer 0 % (0-5); Neutrophil # 3.49 X10^3/uL (2.7-7.7); Neutrophil % 67.3 % (47-70); Platelet Count 171 K/mm3 (150-450); RBC Distribution Width CV 13.5 % (11.6-14.6); Red Blood Count 4.58 M/mm3 (4.6-6.2); White Blood Count 5.2 K/mm3 (4.4-11.0)
[2021-12-26 13:00] LABS: ALB/GLOB Ratio 1.4 RATIO (0.9-2.4); AST(SGOT) 27 U/L (15-37); Alanine Aminotransfer ALT/SGPT 40 U/L (16-61); Albumin, Serum 3.7 g/dL (3.2-5.0); Alkaline Phosphatase 67 U/L (45-117); Anion Gap 4 (5-15); BUN 28 mg/dL (7-18); BUN/Creat Ratio 25.9 RATIO (10-20); Calcium,Total 8.9 mg/dL (8.5-10.1); Chloride 105 mmol/L (98-107); Cholesterol 167 mg/dL (200); Creatinine, Serum 1.08 mg/dL (0.70-1.30); EST Glomerular Filtration Rate 71 mL/min (>60); Est Glom Filt Rate - Afr Amer 86 mL/min (>60); Globulin 2.7 g/dL (2.2-4.2); Glucose 86 mg/dL (74-106); High Density Lipoprotein 39 mg/dL; PSA,Total - Annual Screen 1.04 ng/mL (0.00-4.00); Potassium 4.2 mmol/L (3.5-5.1); Protein, Total 6.4 g/dL (6.4-8.2); Sodium Level 139 mmol/L (136-145); Triglycerides 73 mg/dL; Very Low Density Lipoprotein 15 mg/dL (5-40)
== END 2021-12-26 23:59 | disposition home or self-care (01) ==
LOC: LAB 11:23
PROVIDERS: PCP Internal Medicine; Visit Provider Internal Medicine Rheumatology
DX: M06.4 Inflammatory polyarthropathy (principal); I10 Essential (primary) hypertension; M17.0 Bilateral primary osteoarthritis of knee; N40.0 Benign prostatic hyperplasia without lower urinary tract symptoms; K76.0 Fatty (change of) liver, not elsewhere classified; Z79.899 Other long term (current) drug therapy; Z12.5 Encounter for screening for malignant neoplasm of prostate
CPT/HCPCS: 36415; 80053; 80061; 84153; 85025; G0103

== ENCOUNTER → 2022-03-13 | Outpatient (CLI) | payer MEDICARE, OTHER, SELFPAY ==
[2022-03-13 15:07] LABS: Absolute Lymphocyte Count 1.05 X10^3/uL (0.83-4.51); Absolute Neutrophil Count 3.2 X10^3/uL (2.0-7.7); Basophil# 0.05 X10^3/uL; Eosinophil# 0.13 X10^3/uL; Eosinophils% 2.7 % (0-5); Hematocrit 43.2 % (40-54); Hemoglobin 14.5 g/dL (13.0-16.5); Lymphocyte # 1.05 X10^3/ul (0.83-4.51); Lymphocyte % 21.5 % (19-41); Mean Corp Hgb Conc 33.6 g/dL (32-36); Mean Corpuscular Hgb 31.3 pg (27.0-32.0); Mean Corpuscular Volume 93.3 fL (80-94); Mean Platelet Vol. 9.2 fl (6.2-12.0); Monocyte# 0.49 X10^3/uL; NRBC Flagged by Analyzer 0 % (0-5); Neutrophil # 3.16 X10^3/uL (2.7-7.7); Neutrophil % 64.6 % (47-70); Platelet Count 185 K/mm3 (150-450); RBC Distribution Width CV 13.5 % (11.6-14.6); RBC Distribution Width SD 46.2 fl (35.1-43.9); Red Blood Count 4.63 M/mm3 (4.6-6.2); White Blood Count 4.9 K/mm3 (4.4-11.0)
[2022-03-13 15:32] LABS: ALB/GLOB Ratio 1.2 RATIO (0.9-2.4); AST(SGOT) 26 U/L (15-37); Alanine Aminotransfer ALT/SGPT 41 U/L (16-61); Albumin, Serum 3.5 g/dL (3.2-5.0); Alkaline Phosphatase 68 U/L (45-117); Anion Gap 4 (5-15); BUN 22 mg/dL (7-18); BUN/Creat Ratio 21.8 RATIO (10-20); Calcium,Total 8.8 mg/dL (8.5-10.1); Chloride 103 mmol/L (98-107); Creatinine, Serum 1.01 mg/dL (0.70-1.30); EST Glomerular Filtration Rate 77 mL/min (>60); Est Glom Filt Rate - Afr Amer 93 mL/min (>60); Globulin 2.8 g/dL (2.2-4.2); Glucose 88 mg/dL (74-106); Potassium 3.8 mmol/L (3.5-5.1); Protein, Total 6.3 g/dL (6.4-8.2); Sodium Level 139 mmol/L (136-145)
== END | disposition home or self-care (01) ==
LOC: MTLAB 12:43
PROVIDERS: PCP Internal Medicine; Referring Provider Internal Medicine Rheumatology; Visit Provider Internal Medicine Rheumatology
DX: M06.4 Inflammatory polyarthropathy (principal); M17.0 Bilateral primary osteoarthritis of knee; K76.0 Fatty (change of) liver, not elsewhere classified; Z79.899 Other long term (current) drug therapy
CPT/HCPCS: 36415; 80053; 85025

== ENCOUNTER → 2022-06-06 | Outpatient (CLI) | payer MEDICARE, OTHER, SELFPAY ==
[2022-06-06 13:12] LABS: Absolute Neutrophil Count 3.3 X10^3/uL (2.0-7.7); Basophil# 0.04 X10^3/uL; Basophil% 0.8 % (0-1); Eosinophil# 0.12 X10^3/uL; Eosinophils% 2.4 % (0-5); Hematocrit 42.6 % (40-54); Hemoglobin 14.4 g/dL (13.0-16.5); Lymphocyte % 20.1 % (19-41); Mean Corp Hgb Conc 33.8 g/dL (32-36); Mean Corpuscular Hgb 31.9 pg (27.0-32.0); Mean Corpuscular Volume 94.5 fL (80-94); Mean Platelet Vol. 9.5 fl (6.2-12.0); Monocyte# 0.49 X10^3/uL; Monocyte% 9.9 % (0-10); NRBC Flagged by Analyzer 0 % (0-5); Neutrophil # 3.31 X10^3/uL (2.7-7.7); Neutrophil % 66.6 % (47-70); Platelet Count 183 K/mm3 (150-450); RBC Distribution Width CV 13.2 % (11.6-14.6); RBC Distribution Width SD 45.8 fl (35.1-43.9); Red Blood Count 4.51 M/mm3 (4.6-6.2)
[2022-06-06 13:47] LABS: ALB/GLOB Ratio 1.3 RATIO (0.9-2.4); AST(SGOT) 25 U/L (15-37); Alanine Aminotransfer ALT/SGPT 41 U/L (16-61); Albumin, Serum 3.6 g/dL (3.2-5.0); Alkaline Phosphatase 64 U/L (45-117); Anion Gap 3 (5-15); BUN 30 mg/dL (7-18); BUN/Creat Ratio 28.3 RATIO (10-20); Calcium,Total 8.8 mg/dL (8.5-10.1); Chloride 104 mmol/L (98-107); Creatinine, Serum 1.06 mg/dL (0.70-1.30); EST Glomerular Filtration Rate 72 mL/min (>60); Est Glom Filt Rate - Afr Amer 88 mL/min (>60); Globulin 2.8 g/dL (2.2-4.2); Glucose 84 mg/dL (74-106); Protein, Total 6.4 g/dL (6.4-8.2); Sodium Level 141 mmol/L (136-145)
== END | disposition home or self-care (01) ==
LOC: LAB 11:45
PROVIDERS: PCP Internal Medicine; Referring Provider Internal Medicine Rheumatology; Visit Provider Internal Medicine Rheumatology
DX: M06.4 Inflammatory polyarthropathy (principal); M17.0 Bilateral primary osteoarthritis of knee; K76.0 Fatty (change of) liver, not elsewhere classified; Z79.899 Other long term (current) drug therapy
CPT/HCPCS: 36415; 80053; 85025

== ENCOUNTER → 2022-08-27 | Outpatient (CLI) | payer MEDICARE, OTHER, SELFPAY ==
[2022-08-27 15:28] LABS: Absolute Lymphocyte Count 0.84 X10^3/uL (0.83-4.51); Absolute Neutrophil Count 3.5 X10^3/uL (2.0-7.7); Basophil# 0.01 X10^3/uL; Basophil% 0.2 % (0-1); Eosinophil# 0.07 X10^3/uL; Eosinophils% 1.4 % (0-5); Hematocrit 42.3 % (40-54); Lymphocyte # 0.84 X10^3/ul (0.83-4.51); Lymphocyte % 17.4 % (19-41); Mean Corp Hgb Conc 33.1 g/dL (32-36); Mean Corpuscular Hgb 31.3 pg (27.0-32.0); Mean Corpuscular Volume 94.6 fL (80-94); Mean Platelet Vol. 9.6 fl (6.2-12.0); Monocyte# 0.37 X10^3/uL; Monocyte% 7.6 % (0-10); NRBC Flagged by Analyzer 0.4 % (0-5); Neutrophil # 3.53 X10^3/uL (2.7-7.7); Platelet Count 196 K/mm3 (150-450); RBC Distribution Width CV 12.8 % (11.6-14.6); Red Blood Count 4.47 M/mm3 (4.6-6.2); White Blood Count 4.8 K/mm3 (4.4-11.0)
[2022-08-27 16:02] LABS: ALB/GLOB Ratio 1.5 RATIO (0.9-2.4); AST(SGOT) 30 U/L (15-37); Alanine Aminotransfer ALT/SGPT 67 U/L (16-61); Albumin, Serum 3.6 g/dL (3.2-5.0); Alkaline Phosphatase 68 U/L (45-117); Anion Gap 6 (5-15); BUN 21 mg/dL (7-18); BUN/Creat Ratio 21.3 RATIO (10-20); Calcium,Total 8.8 mg/dL (8.5-10.1); Chloride 102 mmol/L (98-107); Creatinine, Serum 0.99 mg/dL (0.70-1.30); EST Glomerular Filtration Rate 78 mL/min (>60); Est Glom Filt Rate - Afr Amer 95 mL/min (>60); Globulin 2.4 g/dL (2.2-4.2); Glucose 98 mg/dL (74-106); Potassium 4.2 mmol/L (3.5-5.1); Sodium Level 139 mmol/L (136-145)
== END | disposition home or self-care (01) ==
LOC: MTLAB 11:41
PROVIDERS: PCP Internal Medicine; Referring Provider Internal Medicine Rheumatology; Visit Provider Internal Medicine Rheumatology
DX: M06.4 Inflammatory polyarthropathy (principal); K76.0 Fatty (change of) liver, not elsewhere classified; Z79.899 Other long term (current) drug therapy
CPT/HCPCS: 36415; 80053; 85025

== ENCOUNTER → 2022-09-06 | Outpatient (CLI) | payer MEDICARE, OTHER, SELFPAY ==
--- NOTE | 2022-09-06 10:54 | US_ITS ---
Examination: Right upper quadrant ultrasound. INDICATION: Elevated liver enzymes. TECHNIQUE: A dedicated right upper quadrant ultrasound was obtained including Doppler images. COMPARISON: December 25, 2016 FINDINGS: Within the right hepatic lobe there is a hypoechoic 1.2 x 1.0 x 1.6 cm round focus with no internal vascularity nor posterior shadowing. In addition within the right hepatic lobe there is a well-circumscribed echogenic 0.8 x 0.8 x 0.9 cm round focus. There is a similar appearing 1.5 x 1.4 x 1.2 cm round focus within the right hepatic lobe. There is a 1.6 x 1.5 x 1.4 cm shadowing echogenic focus with questionable internal vascularity within the right hepatic lobe as well. The gallbladder is surgically absent. There is poor visualization of the pancreas secondary to overlying bowel gas. The common bile duct measures 1.5 mm. The right kidney measures 10.7 cm. There is no hydronephrosis. US/Liver IMPRESSION: Indeterminate round foci within the liver may reflect hemangiomas, recommend MRI with contrast for further evaluation. Nonvisualization of the pancreas secondary to overlying bowel gas. Electronically Signed: Ria Garcia MD at 12:19 EST ,
== END | disposition home or self-care (01) ==
PROVIDERS: PCP Internal Medicine; Referring Provider Internal Medicine Rheumatology; Visit Provider Internal Medicine Rheumatology
DX: M06.4 Inflammatory polyarthropathy (principal); K76.0 Fatty (change of) liver, not elsewhere classified; Z79.899 Other long term (current) drug therapy
CPT/HCPCS: 76705

== ENCOUNTER → 2022-09-17 | Outpatient (CLI) | payer MEDICARE, OTHER, SELFPAY ==
--- NOTE | 2022-09-17 13:55 | CT_ITS ---
STUDY: CT ABDOMEN AND PELVIS WITH CONTRAST REASON FOR EXAM: Male, 77 years old. Left Groin Hernia RADIATION DOSAGE (If Supplied By Facility): CTDIvol = ( 11.06 ) mGy, DLP = ( 835.31 ) mGycm TECHNIQUE: Transaxial images were obtained from the dome of the diaphragm to the symphysis pubis with oral contrast. Oral and amp; IV Readi-CAT and amp; 100mL Isovue-300 was administered. Sagittal and coronal images were reconstructed. Individualized dose optimization techniques were used for this CT. COMPARISON: None. FINDINGS: Minimal increased markings at the lung bases suggestive of atelectasis. Coronary artery calcification. There is a 1.7 cm x 0.8 m hypodense nodule in the posterior aspect of the right lobe of the liver. This corresponds to the sonographic findings. This may represent a small hemangioma. The patient is status post cholecystectomy. Normal spleen. Normal pancreas. Normal bilateral adrenal glands. Normal right kidney. Normal left kidney. Incidental note is made of a left retroaortic renal vein. Normal visualized stomach. Normal small intestine. There are multiple colonic diverticula consistent with diverticulosis. The appendix is visualized and appears normal. Normal abdominal aorta. Normal inferior vena cava. Normal retroperitoneum. Normal urinary bladder. Heterogeneous enlargement of the prostate with indentation at the bladder base. Small bilateral inguinal hernias more prominent on the left side. A nondistended loop of sigmoid colon is seen within it. There are diffuse degenerative changes of the visualized lumbar spine. Grade 1 anterior listhesis of L4 on L5 due to spondylolysis of the pars interarticularis of the L5 vertebrae. The patient is status post right total hip replacement. CT/Abdomen/Pelvis WITH Contrast IMPRESSION: 1.7 cm x 0.8 cm hypodense nodule in the posterior aspect of the right lobe of the liver. This is in keeping with the recent sonographic findings. Status post cholecystectomy. Sigmoid diverticulosis. Heterogeneous enlargement of the prostate. Bilateral inguinal areas greater on the left side containing nondistended portion of the sigmoid colon. Electronically Signed: Jaswant Guerrero MD at 15:20 EST ,
== END | disposition home or self-care (01) ==
LOC: CT 13:54
PROVIDERS: PCP Internal Medicine; Referring Provider Internal Medicine; Visit Provider Internal Medicine
DX: K40.90 Unilateral inguinal hernia, without obstruction or gangrene, not specified as recurrent (principal)
CPT/HCPCS: 74177

== ENCOUNTER → 2022-09-23 | Outpatient (CLI) | payer MEDICARE, OTHER, SELFPAY ==
[2022-09-23 15:46] LABS: ALB/GLOB Ratio 1.4 RATIO (0.9-2.4); AST(SGOT) 26 U/L (15-37); Alanine Aminotransfer ALT/SGPT 41 U/L (16-61); Albumin, Serum 3.7 g/dL (3.2-5.0); Alkaline Phosphatase 77 U/L (45-117); Anion Gap 6 (5-15); BUN 22 mg/dL (7-18); BUN/Creat Ratio 23.3 RATIO (10-20); Calcium,Total 8.5 mg/dL (8.5-10.1); Chloride 103 mmol/L (98-107); Creatinine, Serum 0.94 mg/dL (0.70-1.30); EST Glomerular Filtration Rate 83 mL/min (>60); Est Glom Filt Rate - Afr Amer 100 mL/min (>60); Globulin 2.7 g/dL (2.2-4.2); Glucose 62 mg/dL (74-106); Potassium 3.7 mmol/L (3.5-5.1); Protein, Total 6.4 g/dL (6.4-8.2); Sodium Level 142 mmol/L (136-145)
== END | disposition home or self-care (01) ==
LOC: MTLAB 12:43
PROVIDERS: PCP Internal Medicine; Referring Provider Internal Medicine Rheumatology; Visit Provider Internal Medicine Rheumatology
DX: M06.4 Inflammatory polyarthropathy (principal); Z79.899 Other long term (current) drug therapy
CPT/HCPCS: 36415; 80053

== ENCOUNTER 2022-11-06 11:25 | Day surgery (SDC) | payer MEDICARE, SELFPAY ==
--- NOTE | 2022-11-04 12:35 | EKG12_ITS ---
Test Reason : PRE OP Blood Pressure : / mmHG Vent. Rate : 071 BPM Atrial Rate : 071 BPM P-R Int : 184 ms QRS Dur : 152 ms QT Int : 440 ms P-R-T Axes : 075 -55 017 degrees QTc Int : 478 ms Normal sinus rhythm Right bundle branch block Left anterior fascicular block Bifascicular block Abnormal ECG Confirmed by TRISTIAN GANT, GERARDO ([id number]), publication editor MEGAN JENKINS ([id number]) on 11/06/2022 10:20:53 AM Referred By: Malcom Valverde Confirmed By:GERARDO LUBIN MD
[2022-11-06] VITALS (8 sets, daily range): BP systolic 115–145; BP diastolic 63–84; PULSE 67–80; RESP 16–18; TEMP 35.8–36.7; O2SAT 94–100; BMI 22.7
[2022-11-06] MEDS: Lactated Ringers 1,000 ML 15 ML IV (11:58)
--- NOTE | 2022-11-06 12:56 | HP.PCM_ITS ---
History and Physical Date of Admission: 11/06/22 Date of Service:? 10/07/22 MR#: [id number] Acct: [id number] Name:OLI CARBALLO Rep #: [id number] : 1945 ? ? Provider: Dr. Mlacom Valverde MD Age/Sex:? 77/M ? ? Location: [facility] Status: Signed Intake Vital Signs ? 10/07/2313:32 Height 6 ft Weight: 188 lb BMI 25.4 BP 121/70 H Blood Pressure Location Rt brachial Position Sitting Respiration 17 Pulse 73 Pulse Source Monitor Temp 97.2 F L Temp Source Temporal Pulse Oximetry (%) 95 Oxygen Delivery Method room air Intake Visit Reasons:?Hernia/CT Scan 09/17 [facility] Chief Complaint: hernia Allergies No Known Allergies Allergy (Verified 10/07/22 14:40) Medications hydroxychloroquine 200 mg tablet (Plaquenil) 200 mg PO BID RA 10/07/17 [History Confirmed 10/07/22] methotrexate sodium 2.5 mg tablet 20 mg PO WE RA 04/13/18 [History Confirmed 10/07/22] folic acid 1 mg tablet 1 mg PO BID SUPPLEMENT 10/21/19 [History Confirmed 10/07/22] multivitamin 1 tab PO DAILY SUPPLEMENT 10/21/19 [History Confirmed 10/07/22] loratadine 10 mg tablet 10 mg PO DAILY PRN ALLERGIES 03/05/20 [History Confirmed 10/07/22] hydrochlorothiazide 12.5 mg tablet 12.5 mg PO QAM bp #90 tabs 05/26/22 [Rx Confirmed 10/07/22] lisinopril 20 mg tablet 20 mg PO DAILY blood pressure #90 tabs 05/26/22 [Rx Confirmed 10/07/22] PFSH Medical History? Arthritis Basal cell carcinoma Cataract, bilateral Flu vaccine need GERD (gastroesophageal reflux disease) Heart valve problem Hypertension Left groin hernia Seasonal allergies Surgical History? H/O cataract removal with insertion of prosthetic lens History of cholecystectomy History of colonoscopy History of right hip replacement Family History? Mother Breast cancer Social History? Smoking Status:? Never smoker alcohol intake:? never substance use type:? does not use what type of physical activity do you participate in:? none HPI HPI HPI: Patient is a 77-year-old male who presents for new left groin bulge.? He is referred from Dr. Carrera.? This finding was first noticed by patient during February 2022.? He initially explained a way to himself that he had strained and muscle.? Then 2 to 3 months ago he noticed a bulge appearing in his left groin.? He denies any associated pain, states that he has some discomfort when standing for prolonged periods of time.? Patient is not able to recall how this occurred.? He denies any change to his bowel habits or history of the bulge becoming firm to the touch.? He reports that he is always able to push it back in at night.? He denies any prior hernia. Patient has no personal history of smoking.? Has no personal history of recurrent cutaneous infections including staph.? He also confirms a report in his chart that he was once told he had a heart valve problem.? However, he is not able to further describe this issue.? When asked if he has had a prior echo, he states that he believes he has but is unsure when that was done. Pertinent surgical history includes: Laparoscopic cholecystectomy in 2006 and more recently patient had a total hip replacement.? Patient denies any anesthetic difficulties and reports a very smooth recovery. 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 He also reports being very busy with splitting and hauling wood for a wood-burning stove that they used to eat the lower level of their home. ROS General General: No weight change, appetite, fatigue, colon cancer, breast cancer or weakness HEENT HEENT: Yes eye surgery; No difficulty swallowing, eye injury, swollen glands or hoarseness Endo Endocrine: No thyroid disease, diabetes mellitus, thyroid cancer, Hair loss, heat intolerance or cold intolerance Skin Skin: No rash or changing moles Musc Musculoskeletal: Yes arthritis and rheumatoid arthritis; No back problems, gout or joint pain Cardio Cardiovascular: Yes high blood pressure; No murmur, pacemaker, heart disease, atrial fibrillation, heart attack, heart stent, palpitations, shortness of breat with exertion or chest pain Psych Psychiatric: No depression, anxiety or hearing voices Resp Respiratory: No shortness of breath, No sleep apnea, No cough, No COPD, No asthma, No emphysema and No wheezing Gastro Gastrointestinal: Yes abdominal pain, No nausea or vomiting, No diarrhea, No constipation, No blood in stool, No acid reflux, No hemorrhoids, No ulcers, No gallbladder problem and No black,tarry stools Robby Hematologic: No blood thinners, No blood disorders, No bleeding, No anemia and No blood clots Neuro Neurologic: No system reviewed and no additional complaints, except as documented, No as per HPI, No abnormal gait, No abnormal hearing, No abnormal movements, No abnormal speech, No behavioral changes, No burning sensations, No confusion, No convulsions, No disequilibrium, No dizziness, No localized weakness, No frequent falls, No headache(s), No lack of coordination, No loss of vision, No memory loss, No numbness, No other visual disturbances, No radicular pain, No restless legs, No sensory deficit, No syncope, No tingling, No tremor(s), No weakness and No other Exam Const General: cooperative, healthy appearing, comfortable and no acute distress Orientation: alert, awake and oriented x3 HENMT Other: Patient wears hearing aids Resp Effort & Inspection: normal respiratory effort Auscultation: no rales, no rhonchi and no wheezes Cardio Rate: regular rate Rhythm: regular rhythm Heart Sounds: S1 normal and S2 normal GI Other: Patient with well-healed port site scars from prior cholecystectomy.? There is no tenderness to palpation x4 quadrants.? Patient does have a reducible bulge of his left inguinal space when lying supine. Other: On standing, patient has bilaterally descended testicles.? He has congenital phimosis.? I feel bulging peritoneal contents on the left which are reducible and minimally tender with palpation.? On the right I feel a second hernia defect which seems to be through the indirect space. Assessment and Plan Assessment and Plan (1) Left groin hernia: ?Status:?Chronic ?Comment: This is a 77-year-old, relatively healthy, male who presents for evaluation of a left inguinal hernia.? His hernia is appears to be largely asymptomatic, patient has noticed a progressively enlarging bulge at this area.? He is not able to recall how it initially occurred.? CT imaging was obtained by patient's primary care physician for this issue and there was an incidental finding of a right inguinal hernia.? Indeed, on exam I feel hernias at both locations.? In this relatively healthy and active 77-year-old, I have recommended, therefore, that we proceed for operative repair via a robot-assisted approach with mesh placement.? Prior to detailing the procedure, I reviewed patient's CT imaging with him and his so that they could appreciate better where his hernias occurred relative to his other anatomy.? All questions were answered to their satisfaction.? I also did share with them the option of watchful waiting given patient's apparent needs to he does home with wood.? He confirms for me that he knows where he can buy wood and that he is able to make the requested commitment for light duty activity x5 weeks postoperatively.? He confirms that it is his choice to proceed as soon as possible with operative repair so that he can then be ready for shearing of his sheep which is due to occur the end of December. ?Plan: ? Left probable right (bilateral) inguinal hernia repair with mesh via robot- assisted approach.? Procedure to be done as an outpatient disposition.? Anticipated operative date early November 2022. I have examined the patient and the H&P has been reviewed. There are no clinical changes since date of exam. We reviewed the details of today's procedure to include left possible right hernia repair (depending on the intraoperative findings) and the postoperative expectations?specifically related to postoperative lifting restrictions. Both patient and his family expressed understanding and a desire to proceed as described.
[2022-11-06] MEDS: Cefazolin 2 GM in 0.9% Normal Saline 100 ML IV (13:25)
--- NOTE | 2022-11-06 16:28 | PCM.OPRPT ---
Report of Operation Date of Procedure: 11/06/22 Pre-Operative Diagnosis: 1. Left inguinal hernia 2. Possible right inguinal hernia Post-Operative Diagnosis: 1. Left indirect inguinal hernia containing portion of sigmoid colon 2. No evidence of right inguinal hernia?probable simple cord lipoma 3. Large left-sided cord lipoma Surgery/Procedure Performed:: Robot-assisted left inguinal hernia repair with mesh Description of Surgical Findings:: ? Left indirect inguinal hernia containing the midportion of sigmoid colon ? No evidence of right inguinal hernia Surgeon: Malcom Valverde paster operator: Stephan New paster operator: Yakelin Robbins Type of Anesthesia: General/Supplemental Anesthesiologist: Albert Keller Specimen's removed: None Estimated Blood Loss (mL): 30 Description of Procedure: After appropriate identification in the preoperative holding area the patient was brought to the operating room where he was positioned supine on the operating table. Preoperative antibiotics were completed and the patient was administered a general anesthetic. Patient's abdomen was then prepped and draped in usual sterile fashion. Formal timeout followed to confirm patient and procedure. Procedure was begun with an attempted Veress entry at at Price's point, but I could only feel two pops of the peritoneum and the water drop test was unsuccessful. Therefore, we transitioned to the midline port site, made our incision, elevated the peritoneum and inserted the Veress needle in this location. This time the water drop test was successful and pneumoperitoneum was established via a set point pressure of 12 mmHg. Upon reaching this pressure, the Veress needle was withdrawn and an optical entry was used to gain access to the peritoneum via a 8 mm robotic trocar. Follow-up laparoscopic investigation revealed no inadvertent injury to the viscera below or in the left upper quadrant deep to Price's point. A second port was placed a hand's breath right of this index port under laparoscopic visualization. Lastly a third robotic port was placed in the left abdominal wall under direct laparoscopic visualization. Patient was positioned in Trendelenburg and I performed a local block of the left ilioinguinal nerve using 0.25% bupivacaine with epinephrine under laparoscopic visualization. The pelvis was inspected and there was an obvious left indirect defect containing a portion of the mid sigmoid colon. Notably there was no defect on the right. The robot was docked in standard fashion. Robotically a peritoneal flap was created on the left and was bluntly dissected to expose the medial parietal compartment and lateral visceral compartments. Medially I could visualize the pubic tubercle and Benedicto's ligament while laterally I extended the dissection down to the level of the ASIS. The hernia sac was identified and carefully from the cord structures deeply with selective use of monopolar energy given the presence of: Within the sac as well. This proved to be a very tedious process as there was exceptional scarring of the sac to the underlying spermatic cord. A large cord lipoma was also identified and carefully removed from the underlying spermatic cord structures with monopolar energy. The peritoneal flap was inspected to ensure that cord was appropriately parietalized and there was no pulling of the cord structures or the viscera deeply over the psoas using the pull test. Once satisfied, a Bard 3D max, size large, regular weight mesh was placed into the abdomen along with suture. Prior to positioning I obtained hemostasis in the pocket after there was some bleeding from the patient's medial umbilical ligament. Hemostasis was obtained via use of our bipolar energy source taking care to maintain good spatial separation from the nearby sigmoid colon. The mesh was positioned within the preperitoneal pocket so that there was good medial and inferior overlap. It was then tacked to the abdominal wall at the abdominal admuniculum and laterally in a partial-thickness bite of the abdominal wall using a 3-0 Vicryl suture. The peritoneal flap was then closed with a running 3-0 V-Loc suture taking care to conceal the barbs of the suture beneath the peritoneum. As this closure proceeded, I also tacked the lateral edge of the mesh to the abdominal wall since it seemed insistent on curling inwards (despite repeatedly attempting to unravel with the robotic instrumentation) after having been rolled tightly to be placed into the abdomen. With the peritoneal defect closed, sutures were systematically removed from the peritoneum and the pneumoperitoneum was evacuated before removing the trocars. The port sites were closed at the skin with running 4-0 Monocryl in a subcuticular fashion. Steri-Strips and OpSite's were used as dressings. Patient's testicles were confirmed within the scrotum and a supportive jockstrap was fitted. Patient was then awoken from anesthetic and transferred to PACU for ongoing recovery. Complications None Admit VTE Documentation VTE Present on Admission: Yes VTE Mechan Device Prophylaxis: SCD's Procedures Digestive [id number]-49xxx: 78396 Lap ing hernia repair init
--- NOTE | 2022-11-06 16:31 | DCINST_ITS ---
Discharge Instructions Diet Discharge Diet: No restrictions Activity Discharge Activity: May Not Drive (While taking narcotic pain medication) and May Shower May shower in (days): 2 Ice area for (Minutes): 20 Lifting Restrictions: No lifting greater than 10 pounds for the next 5 weeks Dressing / Incision Call your doctor if your incision/area has: Continuous Slow Oozing, Increased Pain/ Swelling, Increased Redness, Foul Smelling Discharge and Swelling at the incision site Call your doctor if you observe: Fever of 101 or Higher and Inability to urinate Change Dressing in: 2 days (Please leave Steri-Strips intact until they fall off spontaneously or are taken off at your follow-up visit) Cleanse incision/area with: Soap & Water and Keep Dressing Clean & Dry Follow Up Care Please Follow Up With: Malcom Valverde MD When: 1 week postop Test Results: Test results from this visit will be discussed in further detail at your follow- up appointment, if applicable. Discharge Plan Admission Primary Reason for Your Visit: Repair of left inguinal hernia Attending Provider: Malcom Valverde Primary Care Provider: Zane Carrera Instructions Patient Instructions: After Laparoscopic Hernia Repair Discharge Orders/Prescriptions Prescriptions: New oxycodone 5 mg tablet 5 mg PO Q8H PRN (Reason: pain) 3 Days Qty: 10 0RF Continued hydroxychloroquine [Plaquenil] 200 mg tablet 200 mg PO BID Label Comments: states was not told to hold for surgery methotrexate sodium 2.5 mg tablet 15 mg PO WE Label Comments: hold one week prior to surgery multivitamin 1 EACH tablet 1 tab PO DAILY folic acid 1 tablet 1 mg PO BID loratadine 10 mg tablet 10 mg PO DAILY PRN (Reason: ALLERGIES) hydrochlorothiazide 12.5 mg tablet 12.5 mg PO QAM Qty: 90 3RF lisinopril 20 mg tablet 20 mg PO DAILY Qty: 90 3RF Referrals / Follow Up: Zane Carrera MD [Primary Care Provider] - Disposition Disposition (needs filled in before D/C Order can be placed): Home, Self Care
[2022-11-06] MEDS: Bupiv/Epi 0.5% Mpf 30 ML Vial (16:40)
== END 2022-11-06 19:30 | disposition home or self-care (01) ==
LOC: SDC 11:26 → AC 11:27
PROVIDERS: PCP Internal Medicine; Referring Provider Surgery; Visit Provider Surgery
PROC: 0YQ64ZZ Repair Left Inguinal Region, Percutaneous Endoscopic Approach (ICD-10-PCS; CPT 49650; principal; 2022-11-06 12:40)
DX: K40.20 Bilateral inguinal hernia, without obstruction or gangrene, not specified as recurrent (principal); M06.9 Rheumatoid arthritis, unspecified; I10 Essential (primary) hypertension; K21.9 Gastro-esophageal reflux disease without esophagitis; Z79.899 Other long term (current) drug therapy; Z96.641 Presence of right artificial hip joint
CPT/HCPCS: 49650; S2900; 00830; 87081; 93005; J7120; C1781; J2405

== ENCOUNTER → 2022-12-15 | Outpatient (CLI) | payer MEDICARE, SELFPAY ==
[2022-12-15 12:39] LABS: Absolute Lymphocyte Count 0.84 X10^3/uL (0.83-4.51); Absolute Neutrophil Count 2.7 X10^3/uL (2.0-7.7); Basophil# 0.04 X10^3/uL; Eosinophil# 0.05 X10^3/uL; Eosinophils% 1.2 % (0-5); Hematocrit 46.5 % (40-54); Hemoglobin 15.5 g/dL (13.0-16.5); Lymphocyte # 0.84 X10^3/ul (0.83-4.51); Lymphocyte % 20.8 % (19-41); Mean Corp Hgb Conc 33.3 g/dL (32-36); Mean Corpuscular Hgb 31.4 pg (27.0-32.0); Mean Corpuscular Volume 94.1 fL (80-94); Mean Platelet Vol. 9.6 fl (6.2-12.0); Monocyte# 0.42 X10^3/uL; Monocyte% 10.4 % (0-10); NRBC Flagged by Analyzer 0 % (0-5); Neutrophil # 2.66 X10^3/uL (2.7-7.7); Neutrophil % 66.1 % (47-70); Platelet Count 159 K/mm3 (150-450); RBC Distribution Width CV 13.5 % (11.6-14.6); RBC Distribution Width SD 46.6 fl (35.1-43.9); Red Blood Count 4.94 M/mm3 (4.6-6.2)
[2022-12-15 12:48] LABS: ALB/GLOB Ratio 1.3 RATIO (0.9-2.4); AST(SGOT) 28 U/L (15-37); Alanine Aminotransfer ALT/SGPT 39 U/L (16-61); Albumin, Serum 3.8 g/dL (3.2-5.0); Alkaline Phosphatase 74 U/L (45-117); Anion Gap 7 (5-15); BUN 21 mg/dL (7-18); BUN/Creat Ratio 20.6 RATIO (10-20); Calcium,Total 9.3 mg/dL (8.5-10.1); Chloride 105 mmol/L (98-107); Creatinine, Serum 1.02 mg/dL (0.70-1.30); EST Glomerular Filtration Rate 76 mL/min (>60); Est Glom Filt Rate - Afr Amer 91 mL/min (>60); Globulin 2.9 g/dL (2.2-4.2); Glucose 80 mg/dL (74-106); Potassium 3.6 mmol/L (3.5-5.1); Protein, Total 6.7 g/dL (6.4-8.2); Sodium Level 143 mmol/L (136-145)
== END | disposition home or self-care (01) ==
LOC: BIMLAB 11:22
PROVIDERS: PCP Internal Medicine; Referring Provider Internal Medicine Rheumatology; Visit Provider Internal Medicine Rheumatology
DX: M06.4 Inflammatory polyarthropathy (principal); Z79.899 Other long term (current) drug therapy; M15.9 Polyosteoarthritis, unspecified; M17.0 Bilateral primary osteoarthritis of knee; K76.0 Fatty (change of) liver, not elsewhere classified
CPT/HCPCS: 36415; 80053; 85025

== ENCOUNTER → 2023-03-13 | Outpatient (CLI) | payer MEDICARE, SELFPAY ==
[2023-03-13 12:51] LABS: Absolute Lymphocyte Count 0.93 X10^3/uL (0.83-4.51); Absolute Neutrophil Count 2.9 X10^3/uL (2.0-7.7); Basophil# 0.05 X10^3/uL; Basophil% 1.2 % (0-1); Eosinophil# 0.05 X10^3/uL; Eosinophils% 1.2 % (0-5); Hematocrit 45.7 % (40-54); Hemoglobin 15.2 g/dL (13.0-16.5); Lymphocyte # 0.93 X10^3/ul (0.83-4.51); Lymphocyte % 22.1 % (19-41); Mean Corp Hgb Conc 33.3 g/dL (32-36); Mean Corpuscular Hgb 31.6 pg (27.0-32.0); Monocyte# 0.32 X10^3/uL; Monocyte% 7.6 % (0-10); NRBC Flagged by Analyzer 0 % (0-5); Neutrophil # 2.85 X10^3/uL (2.7-7.7); Neutrophil % 67.7 % (47-70); Platelet Count 164 K/mm3 (150-450); RBC Distribution Width CV 13.2 % (11.6-14.6); RBC Distribution Width SD 45.9 fl (35.1-43.9); Red Blood Count 4.81 M/mm3 (4.6-6.2); White Blood Count 4.2 K/mm3 (4.4-11.0)
[2023-03-13 13:13] LABS: ALB/GLOB Ratio 1.2 RATIO (0.9-2.4); AST(SGOT) 30 U/L (15-37); Alanine Aminotransfer ALT/SGPT 37 U/L (16-61); Albumin, Serum 3.6 g/dL (3.2-5.0); Alkaline Phosphatase 75 U/L (45-117); Anion Gap 5 (5-15); BUN 20 mg/dL (7-18); Chloride 106 mmol/L (98-107); Creatinine, Serum 1.05 mg/dL (0.70-1.30); EST Glomerular Filtration Rate 73 mL/min (>60); Est Glom Filt Rate - Afr Amer 88 mL/min (>60); Globulin 2.9 g/dL (2.2-4.2); Glucose 97 mg/dL (74-106); Potassium 3.9 mmol/L (3.5-5.1); Protein, Total 6.5 g/dL (6.4-8.2); Sodium Level 142 mmol/L (136-145)
== END | disposition home or self-care (01) ==
LOC: BIMLAB 10:33
PROVIDERS: PCP Internal Medicine; Visit Provider Internal Medicine Rheumatology
DX: M06.4 Inflammatory polyarthropathy (principal); Z79.899 Other long term (current) drug therapy
CPT/HCPCS: 36415; 80053; 85025

== ENCOUNTER → 2023-06-09 | Outpatient (CLI) | payer MEDICARE, SELFPAY ==
[2023-06-09 12:25] LABS: Absolute Lymphocyte Count 1.09 X10^3/uL (0.83-4.51); Basophil# 0.04 X10^3/uL; Basophil% 0.9 % (0-1); Eosinophil# 0.08 X10^3/uL; Eosinophils% 1.7 % (0-5); Hematocrit 44.9 % (40-54); Lymphocyte # 1.09 X10^3/ul (0.83-4.51); Lymphocyte % 23.6 % (19-41); Mean Corp Hgb Conc 33.4 g/dL (32-36); Mean Corpuscular Hgb 31.6 pg (27.0-32.0); Mean Corpuscular Volume 94.5 fL (80-94); Mean Platelet Vol. 10.2 fl (6.2-12.0); Monocyte# 0.42 X10^3/uL; Monocyte% 9.1 % (0-10); NRBC Flagged by Analyzer 0 % (0-5); Neutrophil # 2.98 X10^3/uL (2.7-7.7); Neutrophil % 64.5 % (47-70); Platelet Count 161 K/mm3 (150-450); RBC Distribution Width CV 13.2 % (11.6-14.6); RBC Distribution Width SD 45.7 fl (35.1-43.9); Red Blood Count 4.75 M/mm3 (4.6-6.2); White Blood Count 4.6 K/mm3 (4.4-11.0)
[2023-06-09 12:38] LABS: ALB/GLOB Ratio 1.3 RATIO (0.9-2.4); AST(SGOT) 27 U/L (15-37); Alanine Aminotransfer ALT/SGPT 35 U/L (16-61); Albumin, Serum 3.7 g/dL (3.2-5.0); Alkaline Phosphatase 74 U/L (45-117); Anion Gap 8 (5-15); BUN 18 mg/dL (7-18); BUN/Creat Ratio 15.4 RATIO (10-20); Calcium,Total 8.8 mg/dL (8.5-10.1); Chloride 103 mmol/L (98-107); Creatinine, Serum 1.17 mg/dL (0.70-1.30); EST Glomerular Filtration Rate 64 mL/min (>60); Est Glom Filt Rate - Afr Amer 78 mL/min (>60); Globulin 2.8 g/dL (2.2-4.2); Glucose 109 mg/dL (74-106); PSA,Total - Annual Screen 1.55 ng/mL (0.00-4.00); Potassium 3.8 mmol/L (3.5-5.1); Protein, Total 6.5 g/dL (6.4-8.2); Sodium Level 140 mmol/L (136-145)
== END | disposition home or self-care (01) ==
LOC: BIMLAB 10:53
PROVIDERS: PCP Internal Medicine; Visit Provider Internal Medicine Rheumatology
DX: M06.4 Inflammatory polyarthropathy (principal); N40.0 Benign prostatic hyperplasia without lower urinary tract symptoms; Z12.5 Encounter for screening for malignant neoplasm of prostate; Z79.899 Other long term (current) drug therapy
CPT/HCPCS: 36415; 80053; 84153; 85025; G0103

== ENCOUNTER → 2023-09-04 | Outpatient (CLI) | payer MEDICARE, SELFPAY ==
[2023-09-04 15:32] LABS: Absolute Lymphocyte Count 1.09 X10^3/uL (0.83-4.51); Absolute Neutrophil Count 3.1 X10^3/uL (2.0-7.7); Basophil# 0.06 X10^3/uL; Basophil% 1.2 % (0-1); Eosinophil# 0.19 X10^3/uL; Eosinophils% 3.8 % (0-5); Hemoglobin 14.3 g/dL (13.0-16.5); Lymphocyte # 1.09 X10^3/ul (0.83-4.51); Lymphocyte % 21.8 % (19-41); Mean Corp Hgb Conc 33.3 g/dL (32-36); Mean Corpuscular Hgb 31.9 pg (27.0-32.0); Mean Platelet Vol. 9.8 fl (6.2-12.0); Monocyte# 0.53 X10^3/uL; Monocyte% 10.6 % (0-10); NRBC Flagged by Analyzer 0 % (0-5); Neutrophil # 3.12 X10^3/uL (2.7-7.7); Neutrophil % 62.2 % (47-70); Platelet Count 190 K/mm3 (150-450); RBC Distribution Width CV 13.3 % (11.6-14.6); RBC Distribution Width SD 46.4 fl (35.1-43.9); Red Blood Count 4.48 M/mm3 (4.6-6.2)
[2023-09-04 15:54] LABS: ALB/GLOB Ratio 1.2 RATIO (0.9-2.4); AST(SGOT) 29 U/L (15-37); Alanine Aminotransfer ALT/SGPT 37 U/L (16-61); Albumin, Serum 3.5 g/dL (3.2-5.0); Alkaline Phosphatase 74 U/L (45-117); Anion Gap 3 (5-15); BUN 21 mg/dL (7-18); BUN/Creat Ratio 19.4 RATIO (10-20); Calcium,Total 8.6 mg/dL (8.5-10.1); Chloride 104 mmol/L (98-107); Creatinine, Serum 1.08 mg/dL (0.70-1.30); EST Glomerular Filtration Rate 71 mL/min (>60); Est Glom Filt Rate - Afr Amer 85 mL/min (>60); Glucose 94 mg/dL (74-106); Potassium 3.9 mmol/L (3.5-5.1); Protein, Total 6.5 g/dL (6.4-8.2); Sodium Level 138 mmol/L (136-145)
== END | disposition home or self-care (01) ==
LOC: BIMLAB 12:29
PROVIDERS: PCP Internal Medicine; Referring Provider Internal Medicine Rheumatology; Visit Provider Internal Medicine Rheumatology
DX: M06.4 Inflammatory polyarthropathy (principal); K76.0 Fatty (change of) liver, not elsewhere classified; Z79.899 Other long term (current) drug therapy
CPT/HCPCS: 36415; 80053; 85025

== ENCOUNTER → 2023-12-01 | Outpatient (CLI) | payer MEDICARE, SELFPAY ==
[2023-12-01 15:29] LABS: Absolute Lymphocyte Count 1.27 X10^3/uL (0.83-4.51); Absolute Neutrophil Count 2.9 X10^3/uL (2.0-7.7); Basophil# 0.04 X10^3/uL; Basophil% 0.9 % (0-1); Eosinophil# 0.07 X10^3/uL; Eosinophils% 1.5 % (0-5); Hematocrit 45.2 % (40-54); Hemoglobin 15.4 g/dL (13.0-16.5); Lymphocyte # 1.27 X10^3/ul (0.83-4.51); Lymphocyte % 27.2 % (19-41); Mean Corp Hgb Conc 34.1 g/dL (32-36); Mean Corpuscular Hgb 32.1 pg (27.0-32.0); Mean Corpuscular Volume 94.2 fL (80-94); Mean Platelet Vol. 10.3 fl (6.2-12.0); Monocyte% 8.6 % (0-10); NRBC Flagged by Analyzer 0 % (0-5); Neutrophil # 2.88 X10^3/uL (2.7-7.7); Neutrophil % 61.6 % (47-70); Platelet Count 205 K/mm3 (150-450); RBC Distribution Width SD 43.9 fl (35.1-43.9); White Blood Count 4.7 K/mm3 (4.4-11.0)
[2023-12-01 16:17] LABS: Cholesterol 194 mg/dL (200); High Density Lipoprotein 48 mg/dL; Triglycerides 76 mg/dL; Very Low Density Lipoprotein 15 mg/dL (5-40)
[2023-12-01 16:44] LABS: ALB/GLOB Ratio 1.3 RATIO (0.9-2.4); AST(SGOT) 33 U/L (15-37); Alanine Aminotransfer ALT/SGPT 38 U/L (16-61); Albumin, Serum 3.9 g/dL (3.2-5.0); Alkaline Phosphatase 73 U/L (45-117); Anion Gap 6 (5-15); BUN 24 mg/dL (7-18); BUN/Creat Ratio 19.4 RATIO (10-20); Chloride 106 mmol/L (98-107); Creatinine, Serum 1.24 mg/dL (0.70-1.30); EST Glomerular Filtration Rate 60 mL/min (>60); Est Glom Filt Rate - Afr Amer 73 mL/min (>60); Globulin 2.9 g/dL (2.2-4.2); Glucose 80 mg/dL (74-106); Potassium 3.9 mmol/L (3.5-5.1); Protein, Total 6.8 g/dL (6.4-8.2); Sodium Level 140 mmol/L (136-145)
--- OUTSIDE RECORDS SUMMARY | 2023-12-01 21:36 | XMS RPT_ITS | CCD ---
Author Name Unknown Address [address] [place] [address] Organization [facility] Care Team Providers Care Stewardess Supervisor Name Role Phone AURELIOLIZZYMOR Unavailable Unavailable Graciela Bean Unavailable Unavailable Graciela Bean Unavailable Unavailable Debi GANT, Zane Butcher Unavailable [phone] Medications Completed/Discontinued Medications Medication Drug Class(es) Dates Sig (Normalized) Sig (Original) folic acid 1 mg oral tablet (3 sources) Start: 7 take 1 tablet by mouth twice daily FOLIC ACID 1 MG TABS One tablet by mouth twice daily FOLIC ACID [id number] Graciela Bean hydroxychloroquine sulfate 200 mg oral tablet (3 sources) Antimalarial, Antirheumatic Agent Start: 7 take 1 tablet by mouth twice daily PLAQUENIL 200 MG TABS One tablet by mouth twice daily HYDROXYCHLOROQUINE SULFATE [id number] Graciela Bean lisinopril 5 mg oral tablet (3 sources) Angiotensin Converting Enzyme Inhibitor Start: 7 take 1 tablet by mouth once daily LISINOPRIL 5 MG TABS One tablet by mouth daily LISINOPRIL [id number] Zane Carrera MD Methotrexate (3 sources) Folate Analog Metabolic Inhibitor Start: 7 METHOTREXATE 15 MG take 1 tablet once per week METHOTREXATE 15 MG Graciela Bean MULTIPLE VITAMINS-MINERALS (3 sources) Start: 7 take 1 tablet by mouth once daily MULTIVITAMIN MEN 50+ TABS One tablet by mouth daily MULTIPLE VITAMINS-MINERALS [id number] Graciela Bean predniSONE 5 mg oral tablet (4 sources) Start: 7 take 1 tablet by mouth once daily PREDNISONE 5 MG TABS One tablet by mouth daily PREDNISONE [id number] Graciela Bean Problems Problem Classification Problem Date Documented Da te Episodic/Chronic Essential hypertension (1 source) Hypertensive disorder; Translations: [Essential (primary) hypertension] Onset: 07-13-2017 07-13-2017 Chronic Other screening for suspected conditions (not mental disorders or infectious disease) (2 sources) No current problems or disability 07-08-2017 Rheumatoid arthritis and related disease (1 source) Rheumatoid arthritis; Translations: [Rheumatoid arthritis, unspecified] Onset: 07-13-2017 07-13-2017 Chronic Results Test Name Value Interpretation Reference Range Facil ity Vital Signs Date Time Vital Sign Value Performing Clinician Facility 07-13-2017 14:02-0400 BMI (Body Mass Index) 27.49 kg/m2 Zane Carrera MD [facility] Work Phone: 07-13-2017 14:02-0400 Body Temperature 98 [degF] Zane Carrera MD [facility] Work Phone: 07-13-2017 14:02-0400 BP Diastolic 99 mm[Hg] Zane Carrera MD [facility] Work Phone: 07-13-2017 14:02-0400 BP Systolic 177 mm[Hg] Zane Carrera MD [facility] Work Phone: 07-13-2017 14:02-0400 Height 177.8 cm Zane Carrera MD [facility] Work Phone: 07-13-2017 14:02-0400 Pulse (Heart Rate) 78 /min [facility] Work [facility]: 07-13-2017 14:02-0400 Respiratory Rate 10 /min Zane Carrera MD [facility] Work Phone: 07-13-2017 14:02-0400 Weight 86.91 kg Zane Carrera MD [facility] Work Phone: Encounters Encounter Date Encounter Type Care Provider Facility Start: 07-06-2017 End: 07-09-2017 [facility] Plan of Treatment Date Care Activity Detail Author Start: 10-06-2017 End: 10-06-2017 Appointment Appointment [facility] Work Phone: Start: 07-13-2017 End: 07-13-2017 Appointment Appointment [facility] Work Phone: Start: 07-13-2017 End: 07-13-2017 Follow Up Appt 3 months Follow Up Appt 3 months [facility] Work Phone: Summary Purpose Family History No Family History Records Found Advance Directives No Advanced Directives Records Found Additional Source Comments (unrecognized sect ion and content) No Status Records Found INFORMATION SOURCE (unrecogn ized section and content) FOR RECORDS PERTAINING TO PATIENTS WHO ARE OR HAVE BEEN ENROLLED IN A CHEMICAL DEPENDENCY/SUBSTANCEABUSE PROGRAM, SOME INFORMATION MAY BE OMITTED. This clinical summary was aggregated from multiple sources. Caution should be exercised in using it in the provision of clinical care. This summary normalizes information from multiple sources, and as a consequence, information in this document may materially change the coding, format and clinical context of patient data. In addition, data may be omitted in some cases. CLINICAL DECISIONS SHOULD BE BASED ON THE PRIMARY CLINICAL RECORDS. [employer] provides no warranty or guarantee of the accuracy or completeness of information in this document.
== END | disposition home or self-care (01) ==
LOC: MTLAB 12:39
PROVIDERS: PCP Internal Medicine; Referring Provider Internal Medicine Rheumatology; Visit Provider Internal Medicine Rheumatology
DX: M06.4 Inflammatory polyarthropathy (principal); M17.0 Bilateral primary osteoarthritis of knee; Z79.899 Other long term (current) drug therapy
CPT/HCPCS: 36415; 80053; 80061; 85025

== ENCOUNTER → 2024-03-08 | Outpatient (CLI) | payer MEDICARE, SELFPAY ==
[2024-03-08 15:53] LABS: Absolute Lymphocyte Count 0.93 X10^3/uL (0.83-4.51); Absolute Neutrophil Count 2.8 X10^3/uL (2.0-7.7); Basophil# 0.05 X10^3/uL; Basophil% 1.2 % (0-1); Eosinophil# 0.08 X10^3/uL; Eosinophils% 1.9 % (0-5); Hematocrit 43.7 % (40-54); Hemoglobin 14.2 g/dL (13.0-16.5); Lymphocyte # 0.93 X10^3/ul (0.83-4.51); Mean Corp Hgb Conc 32.5 g/dL (32-36); Mean Corpuscular Hgb 30.8 pg (27.0-32.0); Mean Corpuscular Volume 94.8 fL (80-94); Mean Platelet Vol. 9.8 fl (6.2-12.0); Monocyte% 9.5 % (0-10); NRBC Flagged by Analyzer 0 % (0-5); Neutrophil # 2.76 X10^3/uL (2.7-7.7); Neutrophil % 65.4 % (47-70); Platelet Count 165 K/mm3 (150-450); RBC Distribution Width CV 13.2 % (11.6-14.6); RBC Distribution Width SD 45.7 fl (35.1-43.9); Red Blood Count 4.61 M/mm3 (4.6-6.2); White Blood Count 4.2 K/mm3 (4.4-11.0)
[2024-03-08 16:23] LABS: ALB/GLOB Ratio 1.2 RATIO (0.9-2.4); AST(SGOT) 26 U/L (15-37); Alanine Aminotransfer ALT/SGPT 33 U/L (16-61); Albumin, Serum 3.4 g/dL (3.2-5.0); Alkaline Phosphatase 80 U/L (45-117); Anion Gap 4 (5-15); BUN 22 mg/dL (7-18); BUN/Creat Ratio 21.2 RATIO (10-20); Calcium,Total 8.7 mg/dL (8.5-10.1); Chloride 106 mmol/L (98-107); Creatinine, Serum 1.04 mg/dL (0.70-1.30); EST Glomerular Filtration Rate 74 mL/min (>60); Est Glom Filt Rate - Afr Amer 89 mL/min (>60); Globulin 2.9 g/dL (2.2-4.2); Glucose 77 mg/dL (74-106); Potassium 3.9 mmol/L (3.5-5.1); Protein, Total 6.3 g/dL (6.4-8.2); Sodium Level 139 mmol/L (136-145)
== END | disposition home or self-care (01) ==
LOC: BIMLAB 12:03
PROVIDERS: PCP Internal Medicine; Referring Provider Internal Medicine; Visit Provider Internal Medicine
DX: M06.4 Inflammatory polyarthropathy (principal); M15.9 Polyosteoarthritis, unspecified; Z79.899 Other long term (current) drug therapy
CPT/HCPCS: 36415; 80053; 85025

== ENCOUNTER → 2024-05-30 | Outpatient (CLI) | payer MEDICARE, SELFPAY ==
[2024-05-30 15:14] LABS: Absolute Lymphocyte Count 0.86 X10^3/uL (0.83-4.51); Absolute Neutrophil Count 3.4 X10^3/uL (2.0-7.7); Basophil# 0.04 X10^3/uL; Basophil% 0.8 % (0-1); Eosinophil# 0.09 X10^3/uL; Eosinophils% 1.9 % (0-5); Hematocrit 43.2 % (40-54); Hemoglobin 14.2 g/dL (13.0-16.5); Lymphocyte # 0.86 X10^3/ul (0.83-4.51); Mean Corp Hgb Conc 32.9 g/dL (32-36); Mean Corpuscular Hgb 31.1 pg (27.0-32.0); Mean Corpuscular Volume 94.7 fL (80-94); Mean Platelet Vol. 9.9 fl (6.2-12.0); Monocyte# 0.38 X10^3/uL; NRBC Flagged by Analyzer 0 % (0-5); Neutrophil # 3.39 X10^3/uL (2.7-7.7); Neutrophil % 71.1 % (47-70); Platelet Count 168 K/mm3 (150-450); RBC Distribution Width CV 13.7 % (11.6-14.6); RBC Distribution Width SD 47.2 fl (35.1-43.9); Red Blood Count 4.56 M/mm3 (4.6-6.2); White Blood Count 4.8 K/mm3 (4.4-11.0)
[2024-05-30 15:41] LABS: ALB/GLOB Ratio 1.2 RATIO (0.9-2.4); AST(SGOT) 32 U/L (15-37); Alanine Aminotransfer ALT/SGPT 39 U/L (16-61); Albumin, Serum 3.5 g/dL (3.2-5.0); Alkaline Phosphatase 74 U/L (45-117); Anion Gap 5 (5-15); BUN 17 mg/dL (7-18); BUN/Creat Ratio 15.7 RATIO (10-20); Calcium,Total 8.9 mg/dL (8.5-10.1); Chloride 108 mmol/L (98-107); Creatinine, Serum 1.08 mg/dL (0.70-1.30); EST Glomerular Filtration Rate 70 mL/min (>60); Est Glom Filt Rate - Afr Amer 85 mL/min (>60); Globulin 2.9 g/dL (2.2-4.2); Glucose 103 mg/dL (74-106); Potassium 4.2 mmol/L (3.5-5.1); Protein, Total 6.4 g/dL (6.4-8.2); Sodium Level 142 mmol/L (136-145)
[2024-05-30 16:31] LABS: PSA,Total- Diagnostic 1.08 ng/mL (0.0-4.0)
== END | disposition home or self-care (01) ==
LOC: BIMLAB 12:05
PROVIDERS: PCP Internal Medicine; Referring Provider Internal Medicine Rheumatology; Visit Provider Internal Medicine Rheumatology
DX: N40.0 Benign prostatic hyperplasia without lower urinary tract symptoms (principal); M06.4 Inflammatory polyarthropathy; M15.9 Polyosteoarthritis, unspecified; M17.0 Bilateral primary osteoarthritis of knee; Z79.899 Other long term (current) drug therapy
CPT/HCPCS: 36415; 80053; 84153; 85025

== ENCOUNTER → 2024-08-24 | Outpatient (CLI) | payer MEDICARE, SELFPAY ==
[2024-08-24 14:46] LABS: Absolute Lymphocyte Count 1.15 X10^3/uL (0.83-4.51); Basophil# 0.05 X10^3/uL; Basophil% 0.9 % (0-1); Eosinophil# 0.08 X10^3/uL; Eosinophils% 1.4 % (0-5); Hematocrit 41.7 % (40-54); Hemoglobin 13.9 g/dL (13.0-16.5); Lymphocyte # 1.15 X10^3/ul (0.83-4.51); Lymphocyte % 19.9 % (19-41); Mean Corp Hgb Conc 33.3 g/dL (32-36); Mean Corpuscular Volume 93.1 fL (80-94); Mean Platelet Vol. 8.8 fl (6.2-12.0); Monocyte# 0.46 X10^3/uL; Monocyte% 7.9 % (0-10); NRBC Flagged by Analyzer 0 % (0-5); Neutrophil # 4.04 X10^3/uL (2.7-7.7); Neutrophil % 69.7 % (47-70); Platelet Count 168 K/mm3 (150-450); RBC Distribution Width CV 13.2 % (11.6-14.6); RBC Distribution Width SD 44.5 fl (35.1-43.9); Red Blood Count 4.48 M/mm3 (4.6-6.2); White Blood Count 5.8 K/mm3 (4.4-11.0)
[2024-08-24 18:03] LABS: ALB/GLOB Ratio 1.2 RATIO (0.9-2.4); AST(SGOT) 31 U/L (15-37); Alanine Aminotransfer ALT/SGPT 33 U/L (16-61); Albumin, Serum 3.6 g/dL (3.2-5.0); Alkaline Phosphatase 75 U/L (45-117); Anion Gap 3 (5-15); BUN 16 mg/dL (7-18); Calcium,Total 8.9 mg/dL (8.5-10.1); Chloride 103 mmol/L (98-107); EST Glomerular Filtration Rate 77 mL/min (>60); Est Glom Filt Rate - Afr Amer 93 mL/min (>60); Glucose 80 mg/dL (74-106); Potassium 3.5 mmol/L (3.5-5.1); Protein, Total 6.6 g/dL (6.4-8.2); Sodium Level 138 mmol/L (136-145)
== END | disposition home or self-care (01) ==
LOC: MTLAB 13:53
PROVIDERS: PCP Internal Medicine; Referring Provider Internal Medicine Rheumatology; Visit Provider Internal Medicine Rheumatology
DX: M06.4 Inflammatory polyarthropathy (principal); M17.0 Bilateral primary osteoarthritis of knee; Z79.899 Other long term (current) drug therapy
CPT/HCPCS: 36415; 80053; 85025

== ENCOUNTER → 2024-11-11 | Outpatient (CLI) | payer MEDICARE, SELFPAY ==
[2024-11-11 15:25] LABS: Absolute Lymphocyte Count 1.11 X10^3/uL (0.83-4.51); Absolute Neutrophil Count 3.9 X10^3/uL (2.0-7.7); Basophil# 0.07 X10^3/uL; Basophil% 1.2 % (0-1); Eosinophil# 0.07 X10^3/uL; Eosinophils% 1.2 % (0-5); Hematocrit 43.6 % (40-54); Hemoglobin 14.7 g/dL (13.0-16.5); Lymphocyte # 1.11 X10^3/ul (0.83-4.51); Lymphocyte % 19.6 % (19-41); Mean Corp Hgb Conc 33.7 g/dL (32-36); Mean Platelet Vol. 9.7 fl (6.2-12.0); Monocyte# 0.49 X10^3/uL; Monocyte% 8.7 % (0-10); NRBC Flagged by Analyzer 0 % (0-5); Neutrophil # 3.89 X10^3/uL (2.7-7.7); Neutrophil % 68.9 % (47-70); Platelet Count 174 K/mm3 (150-450); RBC Distribution Width CV 13.3 % (11.6-14.6); RBC Distribution Width SD 45.8 fl (35.1-43.9); Red Blood Count 4.59 M/mm3 (4.6-6.2); White Blood Count 5.7 K/mm3 (4.4-11.0)
[2024-11-11 15:58] LABS: ALB/GLOB Ratio 1.2 RATIO (0.9-2.4); AST(SGOT) 30 U/L (15-37); Alanine Aminotransfer ALT/SGPT 39 U/L (16-61); Albumin, Serum 3.7 g/dL (3.2-5.0); Alkaline Phosphatase 72 U/L (45-117); Anion Gap 4 (5-15); BUN 22 mg/dL (7-18); BUN/Creat Ratio 19.8 RATIO (10-20); Calcium,Total 9.3 mg/dL (8.5-10.1); Chloride 105 mmol/L (98-107); Creatinine, Serum 1.11 mg/dL (0.70-1.30); EST Glomerular Filtration Rate 68 mL/min (>60); Est Glom Filt Rate - Afr Amer 83 mL/min (>60); Glucose 82 mg/dL (74-106); Potassium 3.9 mmol/L (3.5-5.1); Protein, Total 6.7 g/dL (6.4-8.2); Sodium Level 142 mmol/L (136-145)
== END | disposition home or self-care (01) ==
LOC: BIMLAB 12:09
PROVIDERS: PCP Internal Medicine; Referring Provider Internal Medicine Rheumatology; Visit Provider Internal Medicine Rheumatology
DX: M06.4 Inflammatory polyarthropathy (principal); Z79.899 Other long term (current) drug therapy
CPT/HCPCS: 36415; 80053; 85025

== ENCOUNTER → 2025-02-07 | Outpatient (CLI) | payer MEDICARE, SELFPAY ==
[2025-02-07 12:44] LABS: Absolute Lymphocyte Count 0.94 X10^3/uL (0.83-4.51); Absolute Neutrophil Count 3.3 X10^3/uL (2.0-7.7); Basophil# 0.05 X10^3/uL; Eosinophil# 0.09 X10^3/uL; Eosinophils% 1.9 % (0-5); Hematocrit 42.1 % (40-54); Hemoglobin 14.5 g/dL (13.0-16.5); Lymphocyte # 0.94 X10^3/ul (0.83-4.51); Lymphocyte % 19.6 % (19-41); Mean Corp Hgb Conc 34.4 g/dL (32-36); Mean Corpuscular Hgb 31.9 pg (27.0-32.0); Mean Corpuscular Volume 92.5 fL (80-94); Mean Platelet Vol. 9.7 fl (6.2-12.0); Monocyte# 0.42 X10^3/uL; Monocyte% 8.8 % (0-10); NRBC Flagged by Analyzer 0 % (0-5); Neutrophil # 3.29 X10^3/uL (2.7-7.7); Neutrophil % 68.5 % (47-70); Platelet Count 169 K/mm3 (150-450); RBC Distribution Width CV 13.6 % (11.6-14.6); RBC Distribution Width SD 45.2 fl (35.1-43.9); Red Blood Count 4.55 M/mm3 (4.6-6.2); White Blood Count 4.8 K/mm3 (4.4-11.0)
[2025-02-07 13:17] LABS: ALB/GLOB Ratio 1.8 RATIO (0.9-2.4); AST(SGOT) 32 U/L (<=37); Alanine Aminotransfer ALT/SGPT 29 U/L (<=46); Alkaline Phosphatase 73 U/L (40-129); Anion Gap 10 (5-15); BUN 16 mg/dL (4-19); BUN/Creat Ratio 16.9 RATIO (10-20); Calcium,Total 8.6 mg/dL (7.6-11.0); Carbon Dioxide 25.2 mmol/L (21.0-32.0); Chloride 106 mmol/L (98-108); Cholesterol 164 mg/dL (<=200); Creatinine, Serum 0.97 mg/dL (0.70-1.20); EST Glomerular Filtration Rate 81 (>60); Globulin 2.2 g/dL (2.2-4.2); Glucose 82 mg/dL (70-99); High Density Lipoprotein 41 mg/dL; Low Density Lipoprotein Calc. 105 mg/dL; Protein, Total 6.3 g/dL (5.9-8.4); Sodium Level 141 mmol/L (133-145); Total Bilirubin 0.58 mg/dL (0.00-1.30); Triglycerides 89 mg/dL; Very Low Density Lipoprotein 18 mg/dL (5-40); cholesterol:hdl ratio screen 4.02
== END | disposition home or self-care (01) ==
LOC: BIMLAB 10:44
PROVIDERS: PCP Internal Medicine; Visit Provider Internal Medicine
DX: M06.4 Inflammatory polyarthropathy (principal); M17.0 Bilateral primary osteoarthritis of knee; Z79.899 Other long term (current) drug therapy
CPT/HCPCS: 36415; 80053; 80061; 85025

== ENCOUNTER → 2025-05-01 | Outpatient (CLI) | payer MEDICARE, SELFPAY ==
[2025-05-01 15:42] LABS: Hematocrit 39.9 % (40-54); Hemoglobin 13.4 g/dL (13.0-16.5); Immature Granulocytes Count 0.020 X10^3/uL (0.0-0.0); Mean Corp Hgb Conc 33.6 g/dL (32-36); Mean Corpuscular Volume 93.9 fL (80-94); Mean Platelet Vol. 9.5 fl (6.2-12.0); NRBC Flagged by Analyzer 0 % (0-5); Platelet Count 161 K/mm3 (150-450); RBC Distribution Width CV 13.4 % (11.6-14.6); RBC Distribution Width SD 44.8 fl (35.1-43.9); Red Blood Count 4.25 M/mm3 (4.6-6.2); White Blood Count 5.5 K/mm3 (4.4-11.0)
[2025-05-01 16:08] LABS: AST(SGOT) 31 U/L (<=37); Alanine Aminotransfer ALT/SGPT 34 U/L (<=46); Albumin, Serum 3.7 g/dL (3.4-4.8); Alkaline Phosphatase 79 U/L (40-129); Anion Gap 9 (5-15); BUN 18 mg/dL (4-19); BUN/Creat Ratio 17.0 RATIO (10-20); Calcium,Total 9.2 mg/dL (7.6-11.0); Carbon Dioxide 29.1 mmol/L (21.0-32.0); Chloride 104 mmol/L (98-108); Globulin 2.1 g/dL (2.2-4.2); Glucose 79 mg/dL (70-99); Potassium 3.7 mmol/L (3.3-5.1)
== END | disposition home or self-care (01) ==
LOC: MTLAB 13:25
PROVIDERS: PCP Internal Medicine; Referring Provider Internal Medicine Rheumatology; Visit Provider Internal Medicine Rheumatology
DX: M06.4 Inflammatory polyarthropathy (principal); M17.0 Bilateral primary osteoarthritis of knee; Z79.899 Other long term (current) drug therapy
CPT/HCPCS: 36415; 80053; 85025

== ENCOUNTER → 2025-05-29 | Outpatient (CLI) | payer MEDICARE, SELFPAY ==
--- NOTE | 2025-05-29 13:16 | RAD_ITS ---
PROCEDURE: KNEE 4 OR MORE VIEWS 05/29/2025 REASON FOR EXAM: PAIN TECHNIQUE: KNEE 4 OR MORE VIEWS Laterality: Right COMPARISON: None FINDINGS: Bones: Normal mineralization of the osseous structures is noted. There is no osteolytic or osteoblastic activity. There are no fractures or dislocations. Joints: Mild arthritic changes are seen involving the medial femorotibial joint. The patellofemoral joint and lateral femorotibial joint appear to be well preserved. Effusion: There is no suprapatellar bursa effusion. Soft tissues: There is no soft tissue swelling. Other: A fabella is seen. RAD/Knee 4 or More Views IMPRESSION: Mild arthritic changes are seen involving the medial femorotibial joint of the right knee. Reading Location: [id number]
--- NOTE | 2025-05-29 13:16 | RAD_ITS ---
PROCEDURE: KNEE 4 OR MORE VIEWS 05/29/2025 REASON FOR EXAM: PAIN TECHNIQUE: KNEE 4 OR MORE VIEWS Laterality: Left COMPARISON: None FINDINGS: Bones: There is normal mineralization of the osseous structures. There is no osteolytic or osteoblastic bone lesion. There are no fractures or dislocations. Joints: Mild arthritic changes of the medial femorotibial joint are noted. The patellofemoral joint and lateral femorotibial joint are well preserved. Effusion: There is no suprapatellar bursa effusion. Soft tissues: There is no soft tissue swelling. Other: A fabella is seen. RAD/Knee 4 or More Views IMPRESSION: Mild arthritic changes of the medial femorotibial joint. Reading Location: [id number]
== END | disposition home or self-care (01) ==
LOC: MTRAD 13:14
PROVIDERS: PCP Internal Medicine; Referring Provider Internal Medicine Rheumatology; Visit Provider Internal Medicine Rheumatology
DX: M25.561 Pain in right knee (principal); M25.562 Pain in left knee
CPT/HCPCS: 73564

== ENCOUNTER → 2025-07-25 | Outpatient (CLI) | payer MEDICARE, SELFPAY ==
[2025-07-25 15:08] LABS: Hematocrit 42.3 % (40-54); Hemoglobin 14.3 g/dL (13.0-16.5); Immature Granulocytes Count 0.020 X10^3/uL (0.0-0.0); Mean Corp Hgb Conc 33.8 g/dL (32-36); Mean Corpuscular Volume 92.4 fL (80-94); Mean Platelet Vol. 9.1 fl (6.2-12.0); NRBC Flagged by Analyzer 0 % (0-5); Platelet Count 205 K/mm3 (150-450); RBC Distribution Width CV 13.3 % (11.6-14.6); RBC Distribution Width SD 44.9 fl (35.1-43.9); Red Blood Count 4.58 M/mm3 (4.6-6.2); White Blood Count 5.9 K/mm3 (4.4-11.0)
[2025-07-25 15:44] LABS: AST(SGOT) 36 U/L (<=37); Alanine Aminotransfer ALT/SGPT 41 U/L (<=46); Albumin, Serum 4.1 g/dL (3.4-4.8); Alkaline Phosphatase 78 U/L (40-129); Anion Gap 10 (5-15); BUN 16 mg/dL (4-19); BUN/Creat Ratio 16.7 RATIO (10-20); Calcium,Total 8.9 mg/dL (7.6-11.0); Carbon Dioxide 27.0 mmol/L (21.0-32.0); Chloride 104 mmol/L (98-108); Globulin 2.3 g/dL (2.2-4.2); Glucose 95 mg/dL (70-99); Potassium 3.9 mmol/L (3.3-5.1)
== END | disposition home or self-care (01) ==
PROVIDERS: PCP Internal Medicine; Referring Provider Internal Medicine Rheumatology; Visit Provider Internal Medicine Rheumatology
DX: M06.4 Inflammatory polyarthropathy (principal); M15.9 Polyosteoarthritis, unspecified; Z79.899 Other long term (current) drug therapy
CPT/HCPCS: 36415; 80053; 85025

== ENCOUNTER 2025-08-18 07:18 | Observation (INO) | payer OTHER, SELFPAY ==
[2025-08-18] VITALS (11 sets, daily range): BP systolic 136–164; BP diastolic 80–98; PULSE 78–86; RESP 16–18; TEMP 36.3–36.6; O2SAT 96–98; BMI 26.6; BMI 25.6
--- NOTE | 2025-08-18 07:28 | EKG12_ITS ---
Test Reason : Blood Pressure : */* mmHG Vent. Rate : 79 BPM Atrial Rate : 79 BPM P-R Int : 184 ms QRS Dur : 162 ms QT Int : 452 ms P-R-T Axes : 32 -45 -12 degrees QTcB Int : 518 ms Normal sinus rhythm Right bundle branch block Left anterior fascicular block Bifascicular block Minimal voltage criteria for LVH, may be normal variant ( R in aVL ) Abnormal ECG Confirmed by VAIBHAV GANT, JAYLON ([id number]), medical editor MEEK LAWRENCE ([id number]) on 08/21/2025 8:16:20 AM Referred By: Confirmed By: JAYLON ESPOSITO MD
--- NOTE | 2025-08-18 07:29 | EX.ED.DYSGE1 ---
HPI History of Present Illness Chief Complaint: Weakness Detail of Chief Complaint: Generalized weakness and lightheadedness Informant: patient Narrative Narrative: Patient presents to the emergency department via EMS from home. Patient states that this morning he just kind of felt generally weak and little bit off balance and lightheaded. He has had a cough and some sinus congestion and headache for about a week. Seen at urgent care and started on amoxicillin 2 days ago. He denies chest pain or shortness of breath. Denies abdominal pain. He complains of feeling like he needs to urinate but not get much urine out. He has had no vomiting or diarrhea. Denies abdominal pain. [facility] Medical History (Updated 08/18/25 @ 10:[address] Tiffany Chicas, DO) Caregiver with fatigue Caregiver burden Health care maintenance BPH (benign prostatic hyperplasia) Wears hearing aid Wears glasses Cancer Rheumatoid arthritis History of stress test History of irregular heartbeat Left groin hernia Cataract, bilateral GERD (gastroesophageal reflux disease) Flu vaccine need Heart valve problem Hypertension Basal cell carcinoma Arthritis Seasonal allergies Home Medications ?Medication ?Instructions ?Recorded ?Last Taken ?Type hydroxychloroquine 200 mg tablet 200 mg PO BID RA 10/07/17 10/21/19 History (Plaquenil) methotrexate sodium 2.5 mg tablet 15 mg PO WE RA 04/13/18 10/19/19 History folic acid 1 mg tablet 1 mg PO BID SUPPLEMENT 10/21/19 10/21/19 History multivitamin 1 tab PO DAILY SUPPLEMENT 10/21/19 10/21/19 History loratadine 10 mg tablet 10 mg PO DAILY PRN ALLERGIES 03/05/20 Unknown History hydrochlorothiazide 12.5 mg tablet 12.5 mg PO QAM bp #90 tabs 05/23/24 Unknown Rx lisinopril 20 mg tablet 20 mg PO DAILY blood pressure #90 06/12/25 Unknown Rx tabs amoxicillin 500 mg capsule 500 mg PO TID #30 caps 08/16/25 Unknown Rx Allergy/AdvReac Type Severity Reaction Status Date / Time No Known Allergies Allergy Verified 08/18/25 07:22 Family History Mother Breast cancer Surgical History Hx of bilateral cataract extraction H/O cataract removal with insertion of prosthetic lens History of right hip replacement History of colonoscopy History of cholecystectomy Social History Smoking Status: Never smoker alcohol intake: never substance use type: does not use what type of physical activity do you participate in: none ROS ROS ED Review of Systems ROS Unobtainable: other Constitutional Constitutional ED: Reports lethargy; Denies chills, fever(s), sweats or weight loss Eyes Eyes: Denies blurry vision, change in vision or diplopia ENT ENT ED: Denies rhinorrhea or sore throat Cardiovascular Cardiovascular: Denies chest pain, orthopnea or racing heartbeat Respiratory/Chest Respiratory/Chest: Reports cough; Denies dyspnea, dyspnea on exertion, orthopnea or sputum Gastrointestinal Gastrointestinal: Denies abdominal pain, diarrhea, nausea or vomiting Genitourinary Genitourinary ED: Denies dysuria, hematuria or urinary frequency Musculoskeletal Musculoskeletal: Denies arthralgias, back pain, myalgias or neck pain Integumentary Denies abscess, Abrasions or rash Neurologic Neurologic: Reports headache(s) and weakness Psychiatric Psychiatric: Denies anxiety, depression or suicidal thoughts Endocrine Endocrinology: Denies polydipsia, polyphagia or polyuria Hematologic/Lymphatic Hematologic/Lymphatic: Denies easy bleeding, easy bruising or lymphadenopathy Allergic/Immunologic Allergic/Immunologic ED: Denies mouth swelling, tongue swelling or urticaria EXAM Physical Exam Const Vital Signs: 08/18/25 07:19 08/18/25 07:21 08/18/25 07:43 Temperature 97.7 F L 97.7 F L Temperature Source Oral Oral Pulse Rate 82 81 Pulse Rate [Lying] 78 Pulse Rate [Sitting (for 1 minute prior to obtaining)] 80 Pulse Rate [Standing (for 1 minute prior to obtaining)] 86 Respiratory Rate 16 16 Respiratory Effort Respiratory Pattern Blood Pressure 154/86 H 154/86 H Blood Pressure [Lying] 136/82 H Blood Pressure [Sitting (for 1 minute prior to obtaining)] 148/86 H Blood Pressure [Standing (for 1 minute prior to obtaining)] 151/80 H Blood Pressure Mean 108 108 Blood Pressure Mean [Lying] 100 Blood Pressure Mean [Sitting (for 1 minute prior to obtaining)] 106 Blood Pressure Mean [Standing (for 1 minute prior to obtaining)] 103 Pulse Ox 98 98 Oxygen Delivery Method Room Air Room Air 08/18/25 07:44 08/18/25 08:21 08/18/25 09:18 Temperature 98 F Temperature Source Oral Pulse Rate 83 84 Pulse Rate [Lying] Pulse Rate [Sitting (for 1 minute prior to obtaining)] Pulse Rate [Standing (for 1 minute prior to obtaining)] Respiratory Rate 18 18 Respiratory Effort Normal Non-Labored Respiratory Pattern Normal Blood Pressure 150/95 H 143/85 H Blood Pressure [Lying] Blood Pressure [Sitting (for 1 minute prior to obtaining)] Blood Pressure [Standing (for 1 minute prior to obtaining)] Blood Pressure Mean 113 104 Blood Pressure Mean [Lying] Blood Pressure Mean [Sitting (for 1 minute prior to obtaining)] Blood Pressure Mean [Standing (for 1 minute prior to obtaining)] Pulse Ox 96 96 Oxygen Delivery Method Room Air Positive well nourished and well developed General Appearance ED: well developed and NAD HEENT Reports TM's clear and moist mucous membranes normocephalic and atraumatic; Negative for trauma or tenderness Tympanic Membrane ED: Yes TM's clear Eyes PERRL and EOMs intact bilaterally General Eye ED: Negative for pale conjunctiva or scleral icterus Neck no lymphadenopathy, supple and no JVD General: Negative for tenderness Chest Wall inspection of chest normal and palpation of chest normal Chest: Negative for tenderness Resp normal respiratory effort and clear to auscultation bilaterally Effort and Inspection: Negative for respiratory distress or pain with movement Auscultation: Negative for rhonchi, wheezes or diminished lung sounds Cardio regular rate, regular rhythm, S1 normal heart sound, S2 normal heart sound and no murmurs Peripheral Pulses: pulses 2+ throughout GI normal to inspection, nondistended, normoactive bowel sounds, soft to palpation, non-tender, non-distended and no masses Back/Spine no CVA tenderness and no thoracic nor lumbar tenderness Extremity normal to inspection General Extremety ED: Negative for edema General Extremity: Negative for edema Neuro oriented x3, CN's II-XII intact bilaterally, no sensory deficits noted and gait normal Sensorium / Orientation: awake, alert, oriented to person, oriented to place and oriented to time Motor Exam: strength 5/5 throughout and strength abnormal Psych mental status grossly normal Skin no rashes or lesions noted and no wounds MDM MDM MDM Narrative Medical decision making narrative: Patient presents with a complaint of generalized weakness and lightheadedness this morning. Feeling like he needs to urinate frequently but only in small amounts out. Currently being treated with amoxicillin for suspected sinus infection. No focal deficits on exam. EKG obtained on arrival showed a sinus rhythm with rate of 79 bpm with right bundle branch block and left anterior fascicular block. CBC with differential shows a white count 7.0 with hemoglobin 12.9 and platelet count of 269. Chemistries unremarkable other than a depressed potassium of 3.0 for which I did give him 40 mill equivalents of potassium chloride p.o. Troponin elevated at 33 however he is not having chest pain will obtain a delta 2-hour troponin. Urinalysis was unremarkable. Bladder scan initially showed 430 cc of urine in the bladder and he was able to void 400 cc. Orthostatic vital signs were negative but he did feel lightheaded with sitting and standing. Delta troponin was 32 which was lower than the initial troponin. Do not feel patient is having acute coronary syndrome. I ambulated the patient again in department and he just still feels off balance and does not feel right. Entertaining possibility of posterior circulation stroke or abnormality although no other focal deficits noted. Will discuss with hospitalist to evaluate for admission Lab Data Attestation: I reviewed the patient's lab results. Labs: Laboratory Results - last 24 hr 08/18/25 08/18/25 08/18/25 07:22 08:00 09:35 WBC 7.0 RBC 4.19 L Hgb 12.9 L Hct 38.6 L MCV 92.1 MCH 30.8 MCHC 33.4 RDW Std Deviation 45.1 H RDW Coeff of [place] 13.4 Plt Count 269 MPV 8.6 Immature Gran % (Auto) 0.700 Neut % (Auto) 75.4 H Lymph % (Auto) 14.7 L Frontier % (Auto) 5.3 Eos % (Auto) 3.3 Baso % (Auto) 0.6 Absolute Neuts (auto) 5.2 Absolute Lymphs (auto) 1.02 Nucleated RBC % 0 Sodium 139 Potassium 3.0 L Chloride 104 Carbon Dioxide 23.1 Anion Gap 12 BUN 16 Creatinine 0.83 Estim Creat Clear Calc 80.51 Est GFR (MDRD) Non-Af 90 BUN/Creatinine Ratio 19.5 Glucose 94 Calcium 8.3 Troponin T High Sens 33 H Troponin T Hi Sens 2 Hr 32 H Urine Color Yellow Urine Clarity Clear Urine pH 6.5 Ur Specific [place] 1.010 Urine Protein 15 H Urine Glucose (UA) Normal Urine Ketones Negative Urine Occult Blood Negative Urine Nitrite Negative Urine Bilirubin Negative Urine Urobilinogen Normal Ur Leukocyte Esterase Negative Urine RBC 0 SEEN Urine WBC 0 SEEN Ur Squamous Epith Cells 0 SEEN Urine Bacteria 0 SEEN Urine Mucus 0 SEEN Radiography Diagnostic Testing: Clinical Impression(s) from Imaging Studies Brain CT 08/18/25 07:42 IMPRESSION: CHRONIC CHANGES. NO ACUTE FINDINGS. Reading Location: [facility] Chest X-Ray 08/18/25 07:45 IMPRESSION: No Acute Findings. Reading Location: [facility] 1 view chest x-ray obtained interpreted by myself as no evidence of infiltrate or pneumothorax or acute disease process. Radiology in agreement. EKG Initial EKG: Attestation: I personally reviewed and interpreted this EKG as follows: Comments: Sinus rhythm with ventricular rate of 79 bpm with right bundle branch block and left anterior fascicular block Discharge Plan Dx/Rx/DC Orders Clinical Impression: Disequilibrium, Generalized weakness Disposition Disposition: Acute Care [facility]
[2025-08-18 07:40] LABS: Hematocrit 38.6 % (40-54); Hemoglobin 12.9 g/dL (13.0-16.5); Immature Granulocytes Count 0.050 X10^3/uL (0.0-0.0); Mean Corp Hgb Conc 33.4 g/dL (32-36); Mean Corpuscular Volume 92.1 fL (80-94); Mean Platelet Vol. 8.6 fl (6.2-12.0); NRBC Flagged by Analyzer 0 % (0-5); Platelet Count 269 K/mm3 (150-450); RBC Distribution Width CV 13.4 % (11.6-14.6); RBC Distribution Width SD 45.1 fl (35.1-43.9); Red Blood Count 4.19 M/mm3 (4.6-6.2); White Blood Count 7.0 K/mm3 (4.4-11.0)
[2025-08-18] MEDS: 0.9% Normal Saline (1000mL) 1,000 ML 1000 ML IV (07:41)
--- NOTE | 2025-08-18 07:42 | CT_ITS ---
PROCEDURE: BRAIN/HEAD WITHOUT CONTRAST 08/18/2025 REASON FOR EXAM: HEADACHE, LIGHTHEADED TECHNIQUE: Procedure Code: CTBR Modality: CT Procedure: BRAIN/HEAD WITHOUT CONTRAST Coronal and Sagittal reconstruction series were provided. One or more dose reduction techniques were used (e.g., Automated exposure control, adjustment of the mA and/or kV according to patient size, use of iterative reconstruction technique. RADIATION DOSE SUMMARY: CTDlvol: 44.99 mGy DLP: 849.54 mGycm COMPARISON: None FINDINGS: Brain: Low density in the periventricular white matter suggests mild chronic small vessel ischemic changes. CSF Spaces: Mild generalized cerebral atrophy punctate calcifications in the basal ganglia bilaterally. This is a normal variant in the patient's age. Sinuses/Mastoids: Clear at visualized levels Bones: Unremarkable CT/Brain/Head without Contrast IMPRESSION: CHRONIC CHANGES. NO ACUTE FINDINGS. Reading Location: [place] [id number]
--- NOTE | 2025-08-18 07:45 | RAD_ITS ---
PROCEDURE: CHEST 1 VIEW (PORTABLE) 08/18/2025 REASON FOR EXAM: COUGH TECHNIQUE: Frontal view of the chest. COMPARISON: October 21, 2019. FINDINGS: Hardware: EKG electrodes are seen. Heart: The heart size is normal. Lungs: No significant change in the appearance of the lungs. Bones: Degenerative changes are identified within the thoracic spine. RAD/Chest 1 View (Portable) IMPRESSION: No Acute Findings. Reading Location: [place] [id number]
[2025-08-18 07:59] LABS: Troponin T High Sensitivity 33 ng/L (<=22)
[2025-08-18 08:02] LABS: Anion Gap 12 (5-15); BUN 16 mg/dL (4-19); BUN/Creat Ratio 19.5 RATIO (10-20); Calcium,Total 8.3 mg/dL (7.6-11.0); Carbon Dioxide 23.1 mmol/L (21.0-32.0); Chloride 104 mmol/L (98-108); Estimated Creatinine Clearance 80.51 ml/min (50-250); Glucose 94 mg/dL (70-99); Potassium 3.0 mmol/L (3.3-5.1)
[2025-08-18 08:06] LABS: Mucous, Urine 0 SEEN /hpf (<or=2+); Red Blood Cells-Urine 0 SEEN /hpf (0-5); Squamous Epithelial Cells - UA 0 SEEN /hpf (0-5)
[2025-08-18 08:13] LABS: Color, Urine Yellow (Yellow); Glucose, Dipstick Normal (Normal); Ketone-Dipstick Negative (Negative); Leukocyte Esterase-Dipstick Negative /ul (Negative); Nitrite-Dipstick Negative (Negative); Occult Blood-Urine Negative /ul (Negative); Protein-Dipstick 15 mg/dl (Negative); Specific Gravity, Urine 1.010 (1.002-1.030); Urine Bilirubin Dipstick Negative (Negative)
[2025-08-18] MEDS: Potassium Chloride Oral Tablet 20 MEQ 40 MEQ PO (08:16)
[2025-08-18 10:05] LABS: Troponin T High Sens 2 HR 32 ng/L (<=22)
--- NOTE | 2025-08-18 10:50 | CT_ITS ---
PROCEDURE: STROKE CTA HEAD AND NECK W/CON 08/18/2025 REASON FOR EXAM: NEURO DEFICIT, ACUTE, STROKE SUSPECTED TECHNIQUE: Procedure Code: [id number].ST.HN Modality: CT Procedure: STROKE CTA HEAD AND NECK W/CON Multiplanar Sagittal and Coronal images were obtained. 3D post processing was performed CONTRAST: Isovue 370 VOLUME: 100 mL One or more dose reduction techniques were used (e.g., Automated exposure control, adjustment of the mA and/or kV according to patient size, use of iterative reconstruction technique). RADIATION DOSE SUMMARY: CTDlvol: 48 mGy DLP: 746 mGycm COMPARISON: Head CT of the same day FINDINGS: Aortic Arch: Normal size and branching pattern. No significant atherosclerotic plaque. Brachiocephalic and Subclavians: Mild atherosclerotic plaque without significant stenosis. RIGHT Carotid: Right CCA: Unremarkable. Right ICA: Unremarkable. Maximum stenosis (NASCET): 0 % Right ECA: Unremarkable. LEFT Carotid: Left CCA: Unremarkable. Left ICA: Unremarkable. Maximum stenosis (NASCET): 0 % Left ECA: Unremarkable. Vertebrals: Codominant. Arise from the subclavians. Both vertebrals form the basilar. RIGHT Vertebral: Unremarkable. LEFT Vertebral: At the level of C2 there is some mild atherosclerotic plaque involving the vertebral artery. Anatomy: [place] anatomy is normal. Aneurysm or avm: No intracranial aneurysms or large vascular malformations are identified. Anterior cerebral arteries: Unremarkable: Middle cerebral arteries: Unremarkable. Basilar artery: Unremarkable. Posterior cerebral arteries: Unremarkable. Other major branches of the posterior circulation: Unremarkable. Major venous structures: Unremarkable. Other findings: Neck: No lymphadenopathy. Lungs: Lung apices are clear. Bones: Bones are unremarkable. CT/STROKE CTA Head AND Neck W/Con IMPRESSION: 1. No large vessel occlusion. 2. No aneurysm or flow-limiting stenosis. Reading Location: [id number]
--- NOTE | 2025-08-18 10:52 | PCM.HP.STD ---
[facility] - General General Date of Admission: 08/18/25 Date of Service: 08/18/25 Chief Complaint: Dizzy lightheaded unsteady gait since morning today HPI Narrative OLI GALEANA, is a 80 M who presents with mild sinusitis, mild headache for 1 month and tried [id number] cold medications with no relief therefore he went to [facility] for sinus congestion and headache and was prescribed amoxicillin at urgent care 2 days ago. He is feeling better with the amoxicillin. He had mild some loose bowel movement but no diarrhea. He came to ED with generalized weakness and lightheadedness. In ED when he was about to be discharged he was unsteady and losing balance but did not fall. ED physician requested to admit to rule out posterior circulation stroke. He felt not safe to discharge because of unsteadiness. [facility] Medical History Caregiver with fatigue Caregiver burden Health care maintenance BPH (benign prostatic hyperplasia) Wears hearing aid Wears glasses Cancer Rheumatoid arthritis History of stress test History of irregular heartbeat Left groin hernia Cataract, bilateral GERD (gastroesophageal reflux disease) Flu vaccine need Heart valve problem Hypertension Basal cell carcinoma Arthritis Seasonal allergies Home Medications ?Medication ?Instructions ?Recorded ?Last Taken ?Type hydroxychloroquine 200 mg tablet 200 mg PO BID RA 10/07/17 10/21/19 History (Plaquenil) methotrexate sodium 2.5 mg tablet 15 mg PO WE RA 04/13/18 10/19/19 History folic acid 1 mg tablet 1 mg PO BID SUPPLEMENT 10/21/19 10/21/19 History multivitamin 1 tab PO DAILY SUPPLEMENT 10/21/19 10/21/19 History loratadine 10 mg tablet 10 mg PO DAILY PRN ALLERGIES 03/05/20 Unknown History hydrochlorothiazide 12.5 mg tablet 12.5 mg PO QAM bp #90 tabs 05/23/24 Unknown Rx lisinopril 20 mg tablet 20 mg PO DAILY blood pressure #90 06/12/25 Unknown Rx tabs amoxicillin 500 mg capsule 500 mg PO TID #30 caps 08/16/25 Unknown Rx Allergy/AdvReac Type Severity Reaction Status Date / Time No Known Allergies Allergy Verified 08/18/25 07:22 Family History Mother Breast cancer Surgical History Hx of bilateral cataract extraction H/O cataract removal with insertion of prosthetic lens History of right hip replacement History of colonoscopy History of cholecystectomy Social History Smoking Status: Never smoker alcohol intake: never substance use type: does not use what type of physical activity do you participate in: none ROS ROS Narrative Constitutional: Reports fatigue and weakness. No fever. HEENT: Dizziness/mild sinusitis described HPI reports systems reviewed and no addt'l complaints, except as documented Respiratory/Chest: No acute shortness of breath or respiratory distress or wheezing. CVS: No chest pain. No history of IN/CHF. No cardiac stent Gastrointestinal: Denies coffee ground emesis, hematemesis or vomiting Genitourinary: He felt like to urinate but did not get much urine out. Denies burning urination or new urinary tract symptoms Musculoskeletal: Denies acute joint pain or limited range of motion. No acute injury Neurologic: Denies seizure-like symptoms. Disequilibrium skin: No ulcer. No rash Endocrinology: Reports systems reviewed and no addt'l complaints, except as documented Hematologic/Lymphatic: Reports systems reviewed and no addt'l complaints, except as documented Rest 14 ROS are negative except as mentioned in HPI Vital Signs Vital Signs Vital Signs: 08/18/25 07:19 08/18/25 07:21 08/18/25 07:43 Temperature 97.7 F L 97.7 F L Temperature Source Oral Oral Pulse Rate 82 81 Pulse Rate [Lying] 78 Pulse Rate [Sitting (for 1 minute prior to obtaining)] 80 Pulse Rate [Standing (for 1 minute prior to obtaining)] 86 Respiratory Rate 16 16 Respiratory Effort Respiratory Pattern Blood Pressure 154/86 H 154/86 H Blood Pressure [Lying] 136/82 H Blood Pressure [Sitting (for 1 minute prior to obtaining)] 148/86 H Blood Pressure [Standing (for 1 minute prior to obtaining)] 151/80 H Blood Pressure Mean 108 108 Blood Pressure Mean [Lying] 100 Blood Pressure Mean [Sitting (for 1 minute prior to obtaining)] 106 Blood Pressure Mean [Standing (for 1 minute prior to obtaining)] 103 Pulse Ox 98 98 Oxygen Delivery Method Room Air Room Air 08/18/25 07:44 08/18/25 08:21 08/18/25 09:18 Temperature 98 F Temperature Source Oral Pulse Rate 83 84 Pulse Rate [Lying] Pulse Rate [Sitting (for 1 minute prior to obtaining)] Pulse Rate [Standing (for 1 minute prior to obtaining)] Respiratory Rate 18 18 Respiratory Effort Normal Non-Labored Respiratory Pattern Normal Blood Pressure 150/95 H 143/85 H Blood Pressure [Lying] Blood Pressure [Sitting (for 1 minute prior to obtaining)] Blood Pressure [Standing (for 1 minute prior to obtaining)] Blood Pressure Mean 113 104 Blood Pressure Mean [Lying] Blood Pressure Mean [Sitting (for 1 minute prior to obtaining)] Blood Pressure Mean [Standing (for 1 minute prior to obtaining)] Pulse Ox 96 96 Oxygen Delivery Method Room Air Weight Weight: 196 lb 6.91 oz Body Mass Index (BMI) 26.6 Physical Exam Narrative General: Alert, Oriented x3, Cooperative. BMI 26.6 kg/m? HEENT: Atraumatic, PERRLA, EOMI, Normocephalic. Oral: Oral mucosa dry. No Gingival or Mucosal Lesions/ Ulcerations Neck: Supple, No JVD, Negative Carotid Bruits Chest wall/Lungs: Air entry diminished in bilateral lung bases. No crepitation/rhonchi Cardiovascular: Regular rate and rhythm, Normal S1,S2, soft systolic murmur Abdomen: Bowel Sounds Present, Soft, Non Tender, Non-Distended : No dysuria. Able to void 400 mL in ED. No renal angle tenderness. No suprapubic tenderness. Extremities: No edema, Capillary Refill Less than 3 Seconds Skin: No rashes, No breakdown Musculoskeletal: No Tenderness to Palpation of Joints or Extremities. ROM intact. Mild knee arthritis. Power 5/5 at major joints Neurological: Cranial nerves II-XII grossly intact, DTR 2+/4. Heel arevalo test and finger-nose test are negative. NIH 0 Psych/Mental Status: Normal Affect, Appropriate. Results Lab / Micro Data 08/18/25 07:22 08/18/25 07:22 Labs: Laboratory Results - last 24 hr 08/18/25 07:22: WBC 7.0, RBC 4.19 L, Hgb 12.9 L, Hct 38.6 L, MCV 92.1, MCH 30.8, MCHC 33.4, RDW Std Deviation 45.1 H, RDW Coeff of [place] 13.4, Plt Count 269, MPV 8.6, Immature Gran % (Auto) 0.700, Neut % (Auto) 75.4 H, Lymph % (Auto) 14.7 L, [place] % (Auto) 5.3, Eos % (Auto) 3.3, Baso % (Auto) 0.6, Absolute Neuts (auto) 5.2, Absolute Lymphs (auto) 1.02, Nucleated RBC % 0, Sodium 139, Potassium 3.0 L, Chloride 104, Carbon Dioxide 23.1, Anion Gap 12, BUN 16, Creatinine 0.83, Estim Creat Clear Calc 80.51, Est GFR (MDRD) Non-Af 90, BUN/Creatinine Ratio 19.5, Glucose 94, Calcium 8.3, Troponin T High Sens 33 H 08/18/25 08:00: Urine Color Yellow, Urine Clarity Clear, Urine pH 6.5, Ur Specific [place] 1.010, Urine Protein 15 H, Urine Glucose (UA) Normal, Urine Ketones Negative, Urine Occult Blood Negative, Urine Nitrite Negative, Urine Bilirubin Negative, Urine Urobilinogen Normal, Ur Leukocyte Esterase Negative, Urine RBC 0 SEEN, Urine WBC 0 SEEN, Ur Squamous Epith Cells 0 SEEN, Urine Bacteria 0 SEEN, Urine Mucus 0 SEEN 08/18/25 09:35: Troponin T Hi Sens 2 Hr 32 H Micro: Microbiology 08/18/25 07:45 Mucosa - Nose SARS-CoV-2, Influenza & RSV (PCR) - Final Imaging Radiology Impression Brain CT 08/18/25 07:42 IMPRESSION: CHRONIC CHANGES. NO ACUTE FINDINGS. [id number] Chest X-Ray 08/18/25 07:45 IMPRESSION: No Acute Findings. Reading Location: [facility] Assessment & Plan Assessment/Plan (1) Generalized weakness: (2) Disequilibrium: PLAN: Plan This is a 80-year-old gentleman being evaluated for unsteady gait and generalized weakness. 1. Generalized weakness, disequilibrium/unsteady gait, rule out posterior circulation stroke: Patient is being admitted in PCU as observation status. CT head shows no acute finding. CTA head and neck does not show large vessel occlusion or aneurysm or flow-limiting stenosis. Twelve-lead EKG NSR, RBBB, LAFB at 79 bpm, LVH. PT, OT, speech therapy/swallow evaluation and management, nursing NIH stroke scale, BP and glucose monitoring and control as per stroke protocol. Teleneurology consult. TSH, A1c fasting lipid profile tomorrow AM. MRI brain and 2D echo with bubble contrast study ordered 2. Subacute sinusitis/sinus headache: Patient feeling better after start of the amoxicillin. Completed the outpatient amoxicillin treatment. 3. Hypertension: Patient blood pressure is within Istre guideline. Avoid hypotension. Follow a stroke guidelines for blood pressure. 4. Chronic rheumatoid arthritis: On hydroxychloroquine 200 mg twice daily and weekly methotrexate. 5. BPH: On tamsulosin continue. Initially could not urinate in ED but later on he urinated about 400 mL in ED 6. Other chronic comorbidities include GERD, history of basal cell carcinoma and degenerative arthritis of knees: PT and OT ordered. Home medication reconciliation done DVT prophylaxis, high risk: On enoxaparin 40 mg subcu daily Living will/advanced directive/end of life care: Patient does have living will or advanced directive. After discussion of benefits/risks procedures involved with full code, DNR CC arrest and DNR CC, the patient opted for full code. Initially wants to try everything but if there is least chance of recovery or reversible cause, then pulled the plug as he said Patient does want artificial life support including intubation, tube feed, ventilator and/chest compression, central venous catheter, vasopressor and DC shock if needed Total time spent in [id number] encounter in discussion of advanced directive 17 minutes. Clinical Impression(s) from Imaging Studies Brain CT 08/18/25 07:42 IMPRESSION: CHRONIC CHANGES. NO ACUTE FINDINGS. Head/Neck CTA 08/18/25 10:50 IMPRESSION: 1. No large vessel occlusion. 2. No aneurysm or flow-limiting stenosis. Reading Location: [id number] Charges/Coding Visit Charges Inpatient E&M: 27046 Init Hosp L3 Procedures Hospitalists Procedures: 39303 Advncd Care Plan 30 Min
[2025-08-18 11:30] LABS: Magnesium 2.2 mg/dL (1.5-2.2)
--- NOTE | 2025-08-18 12:20 | ECHOD_ITS ---
Reason For Study Reason For Study: TIA/CVA Procedure This was a 2D Doppler, Color Flow transthoracic echocardiogram. Exam performed portable in patient room. Left Ventricle Normal LV size. Sigmoid septum. The estimated ejection fraction is 65 %. No evidence for diastolic dysfunction. No regional wall motion abnormalities noted. Right Ventricle Normal RV size. Normal systolic function. Atria The left and right atria are normal. No doppler evidence for ASD. Mitral Valve There is no mitral valve stenosis. Trivial mitral valve insufficiency. Tricuspid Valve There is no tricuspid stenosis. Trivial tricuspid valve insufficiency. Pulmonary artery systolic pressure is 30 mmHg. Aortic Valve Trisinus/trileaflet aortic valve. There is no aortic stenosis. Mild-Moderate (1- 2+) aortic valve insufficiency. Pulmonic Valve There is no pulmonic valvular stenosis. Trivial pulmonic valve insufficiency. Great Vessels Normal sized aortic root. Pericardium/Pleural No pericardial effusion. MMode/2D Measurements & Calculations LVIDd: 5.9 cm IVSd: 0.67 cm Ao root diam: 3.9 cm LVIDs: 3.8 cm LVPWd: 0.89 cm RVDd: 4.3 cm FS: 36.5 % LAV(MOD-bp): 39.1 ml LVAd ap4: 33.9 cm2 LVAd ap2: 32.5 cm2 LAV(MOD-bp) Indexed: 18.8 ml/m2 LVLd ap4: 9.0 cm LVLd ap2: 9.0 cm LAV(MOD-sp2): 40.5 ml EDV(MOD-sp4): 106.3 ml EDV(MOD-sp2): 95.6 ml LAV(MOD-sp4): 37.1 ml EDV(sp4-el): 108.7 ml EDV(sp2-el): 100.0 ml LVAs ap4: 19.3 cm2 LVAs ap2: 18.2 cm2 LVLs ap4: 7.2 cm LVLs ap2: 7.4 cm ESV(MOD-sp4): 43.0 ml ESV(MOD-sp2): 38.1 ml ESV(sp4-el): 43.9 ml ESV(sp2-el): 38.3 ml EF(MOD-sp4): 59.5 % EF(MOD-sp2): 60.2 % EF(sp4-el): 59.6 % SV(MOD-sp4): 63.2 ml SV(MOD-sp2): 57.6 ml SV(sp4-el): 64.8 ml SI(MOD-sp4): 30.5 ml/m2 SI(MOD-sp2): 27.7 ml/m2 LA A4 area: 15.2 cm2 LA dimension(2D): 3.5 cm RA A4 area: 14.6 cm2 TAPSE: 2.2 cm Time Measurements MV dec time: 0.21 sec Doppler Measurements & Calculations MV E max oneil: 81.8 cm/sec Lat Peak E' Oneil: 5.5 cm/sec Med Peak E' Oneil: 7.0 cm/sec MV A max oneil: 113.4 cm/sec E/E' lat: 14.9 E/E' med: 11.6 MV E/A: 0.72 Ao V2 max: 138.4 cm/sec AI max oneil: 353.6 cm/sec MV dec slope: 393.1 cm/sec2 Ao max P.7 mmHg AI max P.2 mmHg Ao V2 mean: 95.3 cm/sec Ao mean P.2 mmHg AI dec slope: 243.3 cm/sec2 Ao V2 VTI: 30.7 cm AI P1/2t: 425.7 msec AV (velocity ratio): 0.97 LV V1 max: 133.6 cm/sec PA V2 max: 91.9 cm/sec PI end-d oneil: 155.2 cm/sec LV V1 max P.1 mmHg LV V1 mean P.2 mmHg LV V1 mean: 97.3 cm/sec LV V1 VTI: 29.9 cm TR max oneil: 252.4 cm/sec TR max P.5 mmHg ECHO/Echo Complete Interpretation Summary The estimated ejection fraction is 65 %. No evidence for diastolic dysfunction. Trivial mitral valve insufficiency. Mild-Moderate (1-2+) aortic valve insufficiency. Ordering Physician: Michael Olvera Referring Physician: Zane Carrera Performed By: Obdulia Mehta RDCS
--- NOTE | 2025-08-18 12:21 | MRI_ITS ---
PROCEDURE: BRAIN WITHOUT CONTRAST 08/18/2025 REASON FOR EXAM: BALANCE/DYSEQUILIBRIUM TECHNIQUE: Procedure Code: MRIBR Modality: MR Procedure: BRAIN WITHOUT CONTRAST Multiplanar and multisequence images were obtained. COMPARISON: CT head and CT angio head and neck 08/18/2025 FINDINGS: There is generalized intracranial volume loss with prominent ventricles and sulci consistent with patient's advanced age. No midline shift or mass effect is identified. No extracerebral fluid collections are present. The jerez-white matter interface and signal intensity appear unremarkable bilaterally. Scattered T2/FLAIR hyperintensities compatible with chronic microvascular white matter ischemia. The DWI and ADC map images show no signal abnormality with restricted diffusion to suggest acute infarct. There is no evidence of intracranial hemorrhage. The cerebellum appears unremarkable. The brainstem shows normal signal intensity and is intact. The cervicocranial junction appears unremarkable. The midline structures including the corpus callosum, sella and suprasellar region appear unremarkable. The vascular structures show normal signal void. The skull is unremarkable. The orbits are grossly unremarkable. The paranasal sinuses show normal translucency. MRI/Brain without Contrast IMPRESSION: 1. No acute infarct. No mass effect or midline shift. 2. Chronic involutional and ischemic gliotic white matter changes. Reading Location: [facility]
[2025-08-18 12:24] LABS: Troponin T High Sens 4 HR 28 ng/L (<=22)
[2025-08-18] MEDS: 0.9% Normal Saline (1000mL) 1,000 ML 75 ML IV (16:10)
[2025-08-18] MEDS: AMOXICILLIN 500 MG CAPSULE PO ×2 (17:25→22:10)
[2025-08-19] MEDS: 0.9% Saline Lock 10 ML Syringe IV (00:27)
[2025-08-19 02:30] VITALS: BP 167/91; PULSE 67; RESP 16; TEMP 36.4; O2SAT 99
[2025-08-19 04:16] VITALS: BMI 25.6
[2025-08-19 06:00] VITALS: BMI 25.4
[2025-08-19 06:05] LABS: Hematocrit 38.7 % (40-54); Hemoglobin 13.0 g/dL (13.0-16.5); Immature Granulocytes Count 0.090 X10^3/uL (0.0-0.0); Mean Corp Hgb Conc 33.6 g/dL (32-36); Mean Corpuscular Volume 93.5 fL (80-94); Mean Platelet Vol. 8.0 fl (6.2-12.0); NRBC Flagged by Analyzer 0.3 % (0-5); Platelet Count 284 K/mm3 (150-450); RBC Distribution Width CV 13.5 % (11.6-14.6); RBC Distribution Width SD 45.9 fl (35.1-43.9); Red Blood Count 4.14 M/mm3 (4.6-6.2); White Blood Count 6.5 K/mm3 (4.4-11.0)
[2025-08-19] MEDS: AMOXICILLIN 500 MG CAPSULE PO (06:05)
[2025-08-19 07:21] LABS: Anion Gap 9 (5-15); BUN 16 mg/dL (4-19); BUN/Creat Ratio 19.8 RATIO (10-20); Calcium,Total 8.5 mg/dL (7.6-11.0); Carbon Dioxide 25.2 mmol/L (21.0-32.0); Chloride 107 mmol/L (98-108); Cholesterol 155 mg/dL (<=200); Estimated Creatinine Clearance 81.49 ml/min (50-250); Glucose 107 mg/dL (70-99); Low Density Lipoprotein Calc. 106 mg/dL; Potassium 3.9 mmol/L (3.3-5.1); Triglycerides 116 mg/dL; Very Low Density Lipoprotein 23 mg/dL (5-40); cholesterol:hdl ratio screen 5.52
[2025-08-19 07:41] VITALS: O2SAT 94
[2025-08-19 08:45] VITALS: BP 143/90; PULSE 79; RESP 14; TEMP 36.7; O2SAT 97
--- NOTE | 2025-08-19 09:09 | DCINST_ITS ---
Discharge Instructions DC O2, CPAP, BIPAP needs Home O2 Discharge instructions: No Dressing / Incision Discharge Activity: Return to Normal Activity Weight Bearing Status: Weight bearing as tolerated Dressing / Incision Call your doctor if you observe: Fever of 101 or Higher, Coldness, Increased Pain, Numbness or Tingling, Change in Color, Inability to urinate, Inability to have a bowel movement, Shortness of breath, Dizziness, Fainting spells, Swelling in the ankles, Chest pain, Prolonged hiccupping, Increased palpitations (irregular heartbeat) and Calf discomfort Follow Up Care When: IN 2 WEEKS Test Results: Test results from this visit will be discussed in further detail at your follow- up appointment, if applicable. Discharge Plan Admission Admit Date/Time: 08/18/25 10:45 Primary Reason for Your Visit: Dizziness, unsteady gait, stroke ruled out Attending Provider: Michael Olvera Primary Care Provider: Zane Carrera Consulting Providers: Jorgito Mejía; Bianka Salvador; Katey Jane; Berna Forde; Alissa Serrano; John Christianson; Vianney Shine; Choco Engel; Gustavo Mendez; Kenneth Vasquez; Joie Leal; Padma Nath; Jose Burgos; Jenny Cutler; Tim Rueda; Adilene Hughes; Adam Oakes; Janiya Campos; Julius Colunga; Saniya Tripp; Carl Pina Discharge Orders/Prescriptions Prescriptions: New atorvastatin [Lipitor] 20 mg tablet 20 mg PO QHS 30 Days Qty: 30 0RF Continued hydroxychloroquine [Plaquenil] 200 mg tablet 200 mg PO BID Patient Comments: states was not told to hold for surgery methotrexate sodium 2.5 mg tablet 17.5 mg PO .Thursday Patient Comments: hold one week prior to surgery Rx Instructions: Takes 4 tablets at breakfast and 3 tablets at supper time. Only on Thursday amoxicillin 500 mg capsule 500 mg PO TID Qty: 30 0RF multivitamin 1 EACH tablet 1 tab PO DAILY folic acid 1 tablet 1 mg PO BID loratadine 10 mg tablet 10 mg PO DAILY PRN (Reason: ALLERGIES) lisinopril 20 mg tablet 20 mg PO DAILY Qty: 90 3RF Referrals / Follow Up: Zane Carrera MD [Primary Care Provider, Internal Medicine] Disposition Disposition (needs filled in before D/C Order can be placed): Home, Self Care
--- NOTE | 2025-08-19 09:12 | PCM.DC.SUM ---
Providers Date of Admission: 08/18/25 Primary Care Physician: Dr. Zane Carrera MD Consultations 08/18/25 12:21 Consult: Tele-Neurology Routine Consulting Provider: [facility] Reason for Consult: Acute Ischemic Stroke/TIA, imbalance EMERGENT Consult: No MD Notified: Yes Date Notified: 08/18/25 Time Notified: 12:49 Method of Notification: Answering Service Nursing Unit Staff Notify [facility] of Tele-Neurology Consult: Yes Reason For Visit: OFF BBALACE Diagnosis Discharge Diagnosis (1) Generalized weakness: Status: Acute Code(s): R53.1 - Weakness (2) Disequilibrium: Status: Acute Code(s): R42 - Dizziness and giddiness Plan This is a 80-year-old gentleman being evaluated for unsteady gait and generalized weakness. 1. Generalized weakness, disequilibrium/unsteady gait, acute stroke ruled: Patient is being admitted in PCU as observation status. CT head shows no acute finding. CTA head and neck does not show large vessel occlusion or aneurysm or flow-limiting stenosis. Twelve-lead EKG NSR, RBBB, LAFB at 79 bpm, LVH. PT, OT, speech therapy/swallow evaluation and management, nursing NIH stroke scale, BP and glucose monitoring and control as per stroke protocol. Teleneurology consult. TSH, A1c fasting lipid profile tomorrow AM. MRI brain and 2D echo with bubble contrast study ordered MRI brain without contrast shows no acute intracranial abnormality. No acute infarct. 2D echo EF 65%. No evidence of diastolic dysfunction. No Doppler evidence for ASD. TSH mildly elevated but free T4 normal. Lipid profile shows HDL 28, LDL 106 therefore low-dose atorvastatin 20 mg daily prescribed. 2. Subacute sinusitis/sinus headache: Patient feeling better after start of the amoxicillin. Advised to complete 7 days of outpatient amoxicillin treatment. 3. Hypertension: Patient blood pressure is within guideline. Avoid hypotension. Follow a stroke guidelines for blood pressure. Blood pressure is set to goal range for his age 143/90 4. Chronic rheumatoid arthritis: On hydroxychloroquine 200 mg twice daily and weekly methotrexate. 5. BPH: On tamsulosin continue. Initially could not urinate in ED but later on he urinated about 400 mL in ED 6. Other chronic comorbidities include GERD, history of basal cell carcinoma and degenerative arthritis of knees: PT and OT ordered. Home medication reconciliation done DVT prophylaxis, high risk: On enoxaparin 40 mg subcu daily Living will/advanced directive/end of life care: Patient does have living will or advanced directive. After discussion of benefits/risks procedures involved with full code, DNR CC arrest and DNR CC, the patient opted for full code. Initially wants to try everything but if there is least chance of recovery or reversible cause, then pulled the plug as he said Patient does want artificial life support including intubation, tube feed, ventilator and/chest compression, central venous catheter, vasopressor and DC shock if needed Discharge medication reconciliation done. Discharge follow-up instructions completed. Discharge process discussed with the patient and all questions were answered to patient's satisfaction. Follow with PCP in 1 to 2 weeks Total time spent, exact 35 minutes on discharge meds reconciliation, examination, coordination of care with nurses and ancillary staff, review of imaging and blood test and discussion with the patient on follow-up instructions. Clinical Impression(s) from Imaging Studies Brain CT 08/18/25 07:42 IMPRESSION: CHRONIC CHANGES. NO ACUTE FINDINGS. Head/Neck CTA 08/18/25 10:50 IMPRESSION: 1. No large vessel occlusion. 2. No aneurysm or flow-limiting stenosis. Reading Location: [id number] Medications at Discharge Home Medications hydroxychloroquine 200 mg tablet (Plaquenil) 200 mg PO BID RA 10/07/17 methotrexate sodium 2.5 mg tablet 17.5 mg PO .Thursday04/13/18 folic acid 1 mg tablet 1 mg PO BID SUPPLEMENT 10/21/19 multivitamin 1 tab PO DAILY SUPPLEMENT 10/21/19 loratadine 10 mg tablet 10 mg PO DAILY PRN ALLERGIES 03/05/20 lisinopril 20 mg tablet 20 mg PO DAILY blood pressure #90 tabs 06/12/25 amoxicillin 500 mg capsule 500 mg PO TID #30 caps 08/16/25 atorvastatin 20 mg tablet (Lipitor) 20 mg PO QHS 30 days #30 tabs 08/19/25 Physical Exam Narrative Seen and examined. No acute issues. Patient can walk in the hallway without unsteady or near fall or leaning to 1 side. Physical exam General: Alert, Oriented x3, Cooperative. BMI 26.6 kg/m? HEENT: Atraumatic, PERRLA, EOMI, Normocephalic. Oral: Oral mucosa dry. No Gingival or Mucosal Lesions/ Ulcerations Neck: Supple, No JVD, Negative Carotid Bruits Chest wall/Lungs: Air entry diminished in bilateral lung bases. No crepitation/rhonchi Cardiovascular: Regular rate and rhythm, Normal S1,S2, soft systolic murmur Abdomen: Bowel Sounds Present, Soft, Non Tender, Non-Distended : No dysuria. Able to void 400 mL in ED. No renal angle tenderness. No suprapubic tenderness. Extremities: No edema, Capillary Refill Less than 3 Seconds Skin: No rashes, No breakdown Musculoskeletal: No Tenderness to Palpation of Joints or Extremities. ROM intact. Mild knee arthritis. Power 5/5 at major joints Neurological: Cranial nerves II-XII grossly intact, DTR 2+/4. Heel arevalo test and finger-nose test are negative. NIH 0 Psych/Mental Status: Normal Affect, Appropriate. Weight / BMI Weight Weight: 187 lb 6.287 oz Body Mass Index (BMI) 25.4 ABG / Lab / Microbiology Data 08/19/25 05:53 08/19/25 05:53 Laboratory: Laboratory Results - last 24 hr 08/18/25 07:22: Hemoglobin A1c 5.4 08/18/25 09:35: Phosphorus 2.7, Magnesium 2.2, Troponin T Hi Sens 2 Hr 32 H, TSH 7.380 H 08/18/25 12:02: Troponin T Hi Sens 4Hr 28 H 08/19/25 05:53: WBC 6.5, RBC 4.14 L, Hgb 13.0, Hct 38.7 L, MCV 93.5, MCH 31.4, MCHC 33.6, RDW Std Deviation 45.9 H, RDW Coeff of Filemon 13.5, Plt Count 284, MPV 8.0, Immature Gran % (Auto) 1.400 H, Neut % (Auto) 78.8 H, Lymph % (Auto) 12.0 L, [place] % (Auto) 4.5, Eos % (Auto) 2.5, Baso % (Auto) 0.8, Absolute Neuts (auto) 5.1, Absolute Lymphs (auto) 0.78 L, Nucleated RBC % 0.3, Sodium 141, Potassium 3.9, Chloride 107, Carbon Dioxide 25.2, Anion Gap 9, BUN 16, Creatinine 0.82, Estim Creat Clear Calc 81.49, Est GFR (MDRD) Non-Af 90, BUN/Creatinine Ratio 19.8, Glucose 107 H, Calcium 8.5, Triglycerides 116, Cholesterol 155, LDL Cholesterol, Calc 106, VLDL Cholesterol 23, HDL Cholesterol 28 L, Cholesterol/HDL Ratio 5.52, Free T4 1.00 Microbiology: Microbiology 08/18/25 07:45 Mucosa - Nose SARS-CoV-2, Influenza & RSV (PCR) - Final Radiography Diagnostic Testing: Radiology Impression Head/Neck CTA 08/18/25 10:50 IMPRESSION: 1. No large vessel occlusion. 2. No aneurysm or flow-limiting stenosis. Reading Location: [id number] Echocardiogram 08/18/25 12:20 Interpretation Summary The estimated ejection fraction is 65 %. No evidence for diastolic dysfunction. Trivial mitral valve insufficiency. Mild-Moderate (1-2+) aortic valve insufficiency. Ordering Physician: Michael Olvera Referring Physician: Zane Carrera Performed By: Obdulia Mehta, RUSTY Brain MRI 08/18/25 12:21 IMPRESSION: 1. No acute infarct. No mass effect or midline shift. 2. Chronic involutional and ischemic gliotic white matter changes. Reading [facility] D[facility]C Instructions Discharge Activity: Return to Normal Activity Weight Bearing Status: Weight bearing as tolerated Call your doctor if you observe: Fever of 101 or Higher, Coldness, Increased Pain, Numbness or Tingling, Change in Color, Inability to urinate, Inability to have a bowel movement, Shortness of breath, Dizziness, Fainting spells, Swelling in the ankles, Chest pain, Prolonged hiccupping, Increased palpitations (irregular heartbeat) and Calf discomfort DC O2, CPAP, BIPAP Needs Home O2 Discharge instructions: No When: IN 2 WEEKS Meaningful Use Info Meaningful Use Meaningful Use Diagnoses (Choose all that apply): None applicable Discharge Plan Admission Admit Date/Time: 08/18/25 10:45 Primary Reason for Your Visit: Dizziness, unsteady gait, stroke ruled out Attending Provider: Michael Olvera Primary Care Provider: Zane Carrera Consulting Providers: Jorgito Mejía; Bianka Salvador; Katey Jane; Berna Forde; Alissa Serrano; John Christianson; Vianney Shine; Choco Engel; Gustavo Mendez; Kenneth Vasquez; Joie Leal; Padma Nath; Jose Burgos; Jenny Cutler; Tim uReda; Adilene Hughes; Adam Oakes; Janiya Campos; Juluis Colunga; Saniya Tripp; Carl Pina Discharge Orders/Prescriptions Prescriptions: New atorvastatin [Lipitor] 20 mg tablet 20 mg PO QHS 30 Days Qty: 30 0RF Continued hydroxychloroquine [Plaquenil] 200 mg tablet 200 mg PO BID Patient Comments: states was not told to hold for surgery methotrexate sodium 2.5 mg tablet 17.5 mg PO .Thursday Patient Comments: hold one week prior to surgery Rx Instructions: Takes 4 tablets at breakfast and 3 tablets at supper time. Only on Thursday amoxicillin 500 mg capsule 500 mg PO TID Qty: 30 0RF multivitamin 1 EACH tablet 1 tab PO DAILY folic acid 1 tablet 1 mg PO BID loratadine 10 mg tablet 10 mg PO DAILY PRN (Reason: ALLERGIES) lisinopril 20 mg tablet 20 mg PO DAILY Qty: 90 3RF Referrals / Follow Up: Zane Carrera MD [Primary Care Provider, Internal Medicine] Disposition Disposition (needs filled in before D/C Order can be placed): Home, Self Care Charges/Coding Visit Charges Inpatient E&M: 69508 Disch Hosp >30min
--- NOTE | 2025-08-19 10:58 | CASEMGMT ---
Social Work PHQ-9 not completed as pt did not have a stroke. LEO Mcdonald
--- NOTE | 2025-08-19 11:40 | CON.PCM.NE_ITS ---
Assessment and Plan: Neuro Assessment/Plan Telestroke Attending Consult Note (Audio/Video Interface) 80 y/o man with h/o RA, HTN p/w mild sinusitis, mild headache for 1 month, received amoxicillin about 2 days ago and then developed acute onset trouble with balance. Patient also reports of concern for dehydration but denies syncope or pre-syncope like symptoms. CT head- no acute intracranial process. CTA- no LVO or significant stenosis. A1c.5.4. LDL-106. MRI Brain - no acute stroke. TTE- EF-65% Today, patient reports feeling back to normal. Diagnosis: Possible TIA Plan: ASA and statin. Control of vascular risk factors. Sign off. Please call us back for any questions. Communicated to hospitalist I personally attended this patient and spent a total time of 70 minutes evaluating this patient including clinical assessment, review of chart, medical history imaging, and determining appropriate treatment and workup. HPI Consult Data Date of Consult: 08/19/25 HPI Narrative HPI Narrative: 80 y/o man with h/o RA, HTN p/w mild sinusitis, mild headache for 1 month, received amoxicillin about 2 days ago and then developed acute onset trouble with balance. Patient also reports of concern for dehydration but denies syncope or pre-syncope like symptoms. CT head- no acute intracranial process. CTA- no LVO or significant stenosis. A1c.5.4. LDL-106. MRI Brain - no acute stroke. TTE- EF-65% Today, patient reports feeling back to normal. [facility] Medical History Caregiver with fatigue Caregiver burden Health care maintenance BPH (benign prostatic hyperplasia) Wears hearing aid Wears glasses Cancer Rheumatoid arthritis History of stress test History of irregular heartbeat Left groin hernia Cataract, bilateral GERD (gastroesophageal reflux disease) Flu vaccine need Heart valve problem Hypertension Basal cell carcinoma Arthritis Seasonal allergies Home Medications ?Medication ?Instructions ?Recorded ?Last Taken ?Type hydroxychloroquine 200 mg tablet 200 mg PO BID RA 12/2010/21/19 History (Plaquenil) methotrexate sodium 2.5 mg tablet 17.5 mg PO .Thursday04/13/18 10/19/19 History folic acid 1 mg tablet 1 mg PO BID SUPPLEMENT 10/2110/21/19 History multivitamin 1 tab PO DAILY SUPPLEMENT 10/21/19 History loratadine 10 mg tablet 10 mg PO DAILY PRN ALLERGIES 03/05/20 Unknown History lisinopril 20 mg tablet 20 mg PO DAILY blood pressur e #90 06/12/25 Unknown Rx tabs amoxicillin 500 mg capsule 500 mg PO TID #30 caps 08/05 11/29 Unknown Rx aspirin 81 mg chewable tablet 81 mg PO DAILY 3 months #90 tabs 08/19/25 Unknown Rx (Panfilo Chewable Low Dose Aspirin) atorvastatin 20 mg tablet (Lipitor) 20 mg PO QHS 30 da ys #30 tabs 08/19/25 Unknown Rx Allergy/AdvReac Type Severity Reaction Status Date / Time No Known Allergies Allergy Verified 08/18/25 07:22 Family History Mother Breast cancer Surgical History Hx of bilateral cataract extraction H/O cataract removal with insertion of prosthetic lens History of right hip replacement History of colonoscopy History of cholecystectomy Social History Smoking Status: Never smoker alcohol intake: never substance use type: does not use what type of physical activity do you participate in: none Vital Signs Vital Signs Vital Signs: 08/18/25 12:30 08/18/25 12:57 08/18/25 13:56 Temperature 97.5 F L Temperature Source Temporal Pulse Rate 84 Pulse Strength Respiratory Rate 18 Respiratory Effort Normal Non-Labored Respiratory Depth Normal Respiratory Pattern Normal Blood Pressure 164/98 H Blood Pressure Mean 120 Blood Pressure Source Monitor Blood Pressure Position Semi-Fowlers Blood Pressure Location Right Arm Pulse Ox 98 98 Oxygen Delivery Method Room Air Room Air Room Air 08/18/25 16:30 08/18/25 22:00 08/18/25 22:00 Temperature 97.8 F 97.4 F L Temperature Source Temporal Oral Pulse Rate 81 81 Pulse Strength Normal (2+) Respiratory Rate 18 16 Respiratory Effort Respiratory Depth Respiratory Pattern Blood Pressure 142/81 H 144/97 H Blood Pressure Mean 101 112 Blood Pressure Source Monitor Monitor Blood Pressure Position Sitting Sitting Blood Pressure Location Right Arm Right Arm Pulse Ox 97 96 Oxygen Delivery Method Room Air Room Air 08/18/25 22:00 08/19/25 02:30 08/19/25 02:30 Temperature 97.6 F L Temperature Source Oral Pulse Rate 67 Pulse Strength Respiratory Rate 16 Respiratory Effort Normal Non-Labored Normal Non-Labored Respiratory Depth Normal Normal Respiratory Pattern Normal Normal Blood Pressure 167/91 H Blood Pressure Mean 116 Blood Pressure Source Monitor Blood Pressure Position Sitting Blood Pressure Location Left Arm Pulse Ox 99 Oxygen Delivery Method Room Air Room Air Room Air 08/19/25 07:41 08/19/25 08:45 Temperature 98.0 F Temperature Source Oral Pulse Rate 79 Pulse Strength Respiratory Rate 14 Respiratory Effort Respiratory Depth Respiratory Pattern Blood Pressure 143/90 H Blood Pressure Mean 107 Blood Pressure Source Monitor Blood Pressure Position Sitting Blood Pressure Location Right Arm Pulse Ox 94 97 Oxygen Delivery Method Room Air Room Air Weight Weight: 85 kg Body Mass Index (BMI) 25.4 EEG Results Procedure Details EEG Procedure Details: OLI GALEANA is a 80 year old M with a past medical history of , who presents for evaluation of Electroencephalogram on DATE at TIME Physical Exam Narrative General: The patient appears nutritionally appropriate, well-groomed, and appears comfortable in no acute distress. Mental Status:? The patient?s mental status was normal including orientation.? Language was intact.? Cranial nerves:? Visual carbone full, and extra-ocular motion was intact. Symmetric face. Motor: Normal strength in all extremities. Sensation: Intact to touch in all extremities.? Coordination:? Bilateral finger to nose was normal.? There was no dysmetria. Gait:? deferred. Lab / Micro Data 08/19/25 05:53 08/19/25 05:53 Labs: Laboratory Results - last 24 hr 08/18/25 07:22: Hemoglobin A1c 5.4 08/18/25 09:35: Phosphorus 2.7 08/18/25 12:02: Troponin T Hi Sens 4Hr 28 H 08/19/25 05:53: WBC 6.5, RBC 4.14 L, Hgb 13.0, Hct 38.7 L, MCV 93.5, MCH 31.4, MCHC 33.6, RDW Std Deviation 45.9 H, RDW Coeff of Filemon 13.5, Plt Count 284, MPV 8.0, Immature Gran % (Auto) 1.400 H, Neut % (Auto) 78.8 H, Lymph % (Auto) 12.0 L , [place] % (Auto) 4.5, Eos % (Auto) 2.5, Baso % (Auto) 0.8, Absolute Neuts (auto) 5.1, Absolute Lymphs (auto) 0.78 L, Nucleated RBC % 0.3, Sodium 141, Potassium 3.9, Chloride 107, Carbon Dioxide 25.2, Anion Gap 9, BUN 16, Creatinine 0.82, Estim Creat Clear Calc 81.49, Est GFR (MDRD) Non-Af 90, BUN/Creatinine Ratio 19.8, Glucose 107 H, Calcium 8.5, Triglycerides 116, Cholesterol 155, LDL Cholesterol, Calc 106, VLDL Cholesterol 23, HDL Cholesterol 28 L, Cholesterol/HDL Ratio 5.52, Free T4 1.00 Micro: Microbiology 08/18/25 07:45 Mucosa - Nose SARS-CoV-2, Influenza & RSV (PCR) - Final Imaging Radiology Impression Head/Neck CTA 08/18/25 10:50 IMPRESSION: 1. No large vessel occlusion. 2. No aneurysm or flow-limiting stenosis. Reading Location: [facility] Echocardiogram 08/18/25 12:20 Interpretation Summary The estimated ejection fraction is 65 %. No evidence for diastolic dysfunction. Trivial mitral valve insufficiency. Mild-Moderate (1-2+) aortic valve insufficiency. Ordering Physician: Michael Olvera Referring Physician: Zane Carrera Performed By: Obdulia Mehta RDCS Brain MRI 08/18/25 12:21 IMPRESSION: 1. No acute infarct. No mass effect or midline shift. 2. Chronic involutional and ischemic gliotic white matter changes. Reading Location: [facility] Active Medications Active Medications Active Medications: Current Medications Generic Name Dose Route Start Last Admin Trade Name Freq PRN Reason Stop Dose Admin Acetaminophen 650 mg 08/18/25 12:21 08/19/25 02:27 Acetaminophen 325 Mg Tablet PO 650 mg Q4H PRN PRN Administration Pain 1-10 Or Fever>99.6 Amoxicillin 500 mg 08/18/25 16:40 08/19/25 06:05 Amoxicillin 500 Mg Capsule PO 500 mg TID SOURAV Administration Atorvastatin Calcium 40 mg 08/18/25 22:00 08/18/25 22:10 Atorvastatin Calcium 40 Mg Tablet PO 40 mg QHS SOURAV Administration Enoxaparin Sodium 40 mg 08/18/25 12:30 08/19/25 09:43 Enoxaparin 40 Mg/0.4 Ml Syringe SC Not Given Q24 [facility] Folic Acid 1 mg 08/18/25 17:00 08/19/25 08:38 Folic Acid 1 Mg Tablet PO 1 mg BIDCM [facility] Administration Hydralazine HCl 5 mg 08/18/25 12:21 Hydralazine 20 Mg/Ml Vial IV 08/19/25 12:21 Q30M PRN maintain BP parameters with HR <60 Hydroxychloroquine Sulfate 200 mg 08/18/25 22:00 08/19/25 08:38 Hydroxychloroquine 200 Mg Tablet PO 200 mg BID [facility] Administration Iopamidol 0 ml 08/18/25 12:21 08/18/25 16:14 Contrast Allergy Safety Check IV Not Given X1 [facility] Labetalol HCl 10 - 20 mg 08/18/25 12:21 Labetalol 20 Mg/4 Ml Vial IV 08/19/25 12:21 Q10M PRN PRN maintain BP parameters with HR >/=60 Lisinopril 20 mg 08/19/25 10:00 08/19/25 08:38 Lisinopril 20 Mg Tablet PO 20 mg DAILY [facility] Administration Protocol Loratadine 10 mg 08/18/25 16:35 Loratadine 10 Mg Tablet PO DAILY PRN ALLERGIES Multivitamins 1 tablet 08/19/25 08:00 08/19/25 08:38 Multivitamins,Therapeutic Tablet PO 1 tablet DAILYCM [facility] Administration Nitroglycerin 0.4 mg 08/18/25 12:30 Nitroglycerin (Inpatient Use) 0.4 Mg Tab.Subl SL Q5M PRN CARDIAC/CHEST PAIN Senna/Docusate Sodium 2 tablet 11/14/25 22:00 08/19/25 09:43 Senna/Docusate Sodium 1 Tablet PO Not Given BID SOURAV Sodium Chloride 10 - 40 ml 08/18/25 12:37 08/19/25 00:27 0.9% Saline Lock 10 Ml Syringe IV 20 ml UD PRN Administration SALINE FLUSH NIHSS NIHSS Nursing Documentation NIHSS Nursing Documentation: NIHSS: Ischemic Stroke/TIA Start: 08/18/25 12:21 Text: For PCU Patients: NIH and Neuro Check every 4 Status: Complete hours, PRN and with change in RN caregiver. Freq: [id number] Protocol: Activity Type Activity Date Activity User E-sign Co-sign Detail Recorded Client Recorded Date Recorded By Document 08/18/25 16:30 [email or web address] [id number] 08/18/25 16:30 [id number] 08/18/25 16:30 NIH Stroke Scale [NIHSS] A score of 0 is normal or asymptomatic . Total possible score is 42. Inpatient: RN or Physician to activate a stroke alert for onset of new stroke symptoms or with NIHSS increase >/= 3 points. Following change in neurological status, NIHSS will be performed per physician order or more frequently PRN. -1a. Level of Consciousness 0 - Alert; keenly responsive -1b. LOC Questions 0 - Answers BOTH questions correctly -1c. LOC Commands 0 - Performs BOTH tasks correctly -2. Best Gaze 0 - Normal -3. Visual 0 - No visual loss -4. Facial Palsy 0 - Normal symmetrical movements -5a. Left Arm 0 - No drift; arm holds 90 ( or 45) degrees for full 10 seconds -5b. Right Arm 0 - No drift; arm holds 90 ( or 45) degrees for full 10 seconds -6a. Left Leg 0 - No drift; leg holds 30- degree position for full 5 seconds -6b. Right Leg 0 - No drift; leg holds 30- degree position for full 5 seconds -7. Limb Ataxia 0 - Absent -8. Sensory 0 - Normal; no sensory loss -9. Best Language 0 - No aphasia; normal -10. Dysarthria 0 - Normal -11. Extinction and Inattention 0 - No abnormality -Total 0 Query Text:A score of 0 is normal or asymptomatic. Total possible score is 42 . ED: Notify Physician for NIHSS increase by > / = 3 points. Inpatient: RN or Physician to activate a stroke alert for NIHSS increase of > / = 3 points. Coma Scale [Assess] -Eye Opening Spontaneous -Motor Obeys Commands -Verbal Oriented [Total] -Coma Scale Total 15 NIHSS 1a. Level of Consciousness: 0 - Alert; keenly responsive 1b. LOC Questions: 0 - Answers BOTH questions correctly 1c. LOC Commands: 0 - Performs BOTH tasks correctly 2. Best Gaze: 0 - Normal 3. Visual: 0 - No visual loss 4. Facial Palsy: 0 - Normal symmetrical movements 5a. Left Arm: 0 - No drift; arm holds 90 (or 45) degrees for full 10 seconds 5b. Right Arm: 0 - No drift; arm holds 90 (or 45) degrees for full 10 seconds 6a. Left Le - No drift; leg holds 30-degree position for full 5 seconds 6b. Right Le - No drift; leg holds 30-degree position for full 5 seconds 7. Limb Ataxia: 0 - Absent 8. Sensory: 0 - Normal; no sensory loss 9. Best Language: 0 - No aphasia; normal 10. Dysarthria: 0 - Normal 11. Extinction and Inattention: 0 - No abnormality Total: 0
--- NOTE | 2025-08-19 12:02 | CASEMGMT ---
Social Work SW met w/pt regarding POA for healthcare, pt states he just recently redid the documents and his daughter is POA, he is aware the documents are not on the chart. Pt also mentioned his with Parkinson's, he is caring for her(at present their daughter is with her). Pt became tearful when speaking to pt about and her condition. They have been for 56 years. SW offered support to pt. SW offered resources, pt open to resources. SW offered also to make a referral to [facility], however pt does not think they would qualify financially. SW gave pt information on [facility], private hire aide agencies, assisted living list. SW also gave pt a list of MH resources for himself should he need additional support. Pt's son is now here, he asked for resources on home delivered meals, SW provided to son information on [employer] Whe[employer], [employer] and [employer]. Son thanked SW for the information. No further needs, pt reports to feel safe returning home today, no homegoing needs anticipated. LEO Mcdonald
== END 2025-08-19 12:15 | disposition home or self-care (01) ==
LOC: ED 10:53 → PCU 11:30
PROVIDERS: Admitting Provider Internal Medicine; Emergency Provider Emergency Medicine; PCP Internal Medicine; Visit Provider Internal Medicine
DX: R53.1 Weakness (principal); M06.9 Rheumatoid arthritis, unspecified; R26.89 Other abnormalities of gait and mobility; I45.2 Bifascicular block; I10 Essential (primary) hypertension; R42 Dizziness and giddiness; Z79.899 Other long term (current) drug therapy; K21.9 Gastro-esophageal reflux disease without esophagitis; I35.1 Nonrheumatic aortic (valve) insufficiency; R51.9 Headache, unspecified; N40.0 Benign prostatic hyperplasia without lower urinary tract symptoms
CPT/HCPCS: 36415; 70450; 70496; 70498; 70551; 71045; 80048; 80061; 81001; 83036; 83735; 84100; 84439; 84443; 84484; 85025; 87631; 93005; 93306; 94668; 94762; 96360; 96361; 96372; 97161; 97165; 99221; 99285; Q9967; A4216; G0378

== ENCOUNTER 2025-08-21 09:37 | Observation (INO) | payer OTHER, SELFPAY ==
[2025-08-21] VITALS (13 sets, daily range): BP systolic 146–202; BP diastolic 80–110; PULSE 72–87; RESP 11–18; TEMP 36.2–36.9; O2SAT 94–98; BMI 25.1
--- NOTE | 2025-08-21 09:43 | CT_ITS ---
PROCEDURE: STROKE BRAIN/HEAD WITHOUT CONT 08/21/2025 REASON FOR EXAM: NEURO DEFICIT, ACUTE, STROKE SUSPECTED TECHNIQUE: Procedure Code: CTBR.ST Modality: CT Procedure: STROKE BRAIN/HEAD WITHOUT CONT Coronal and Sagittal reconstruction series were provided. One or more dose reduction techniques were used (e.g., Automated exposure control, adjustment of the mA and/or kV according to patient size, use of iterative reconstruction technique. RADIATION DOSE SUMMARY: CTDlvol: 44.99 mGy DLP: 812.98 mGycm COMPARISON: August 18 2025. FINDINGS: Brain: Low density in the periventricular white matter suggests mild chronic small vessel ischemic changes. Stable mild calcifications of the basal ganglia bilaterally. This is a normal variant for the patient's age. CSF Spaces: Mild generalized cerebral atrophy Sinuses/Mastoids: Clear at visualized levels Bones: Unremarkable CT/STROKE Brain/Head without Cont IMPRESSION: CHRONIC CHANGES. NO ACUTE FINDINGS. Stable examination. Stroke Alert: Chronic changes The critical findings in the findings and impression above were relayed directl y by me by telephone to Tiffany Chicas on 08/21/2025 at 9:59 am with readback verification. Reading Location: [id number]
--- NOTE | 2025-08-21 09:43 | EKG12_ITS ---
Test Reason : STROKE ALERT Blood Pressure : */* mmHG Vent. Rate : 74 BPM Atrial Rate : 74 BPM P-R Int : 180 ms QRS Dur : 152 ms QT Int : 416 ms P-R-T Axes : 29 -60 -14 degrees QTcB Int : 461 ms Normal sinus rhythm Right bundle branch block Left anterior fascicular block Bifascicular block Minimal voltage criteria for LVH, may be normal variant ( R in aVL ) Abnormal ECG Confirmed by TRISTIAN GANT, GERARDO ([id number]), purchase request editor MEEK LAWRENCE ([id number]) on 08/22/2025 12:20:39 PM Referred By: Confirmed By: GERARDO LUBIN MD
--- NOTE | 2025-08-21 09:43 | CT_ITS ---
PROCEDURE: STROKE CTA HEAD AND NECK W/CON 08/21/2025 REASON FOR EXAM: NEURO DEFICIT, ACUTE, STROKE SUSPECTED TECHNIQUE: Procedure Code: CTCTA.ST.HN Modality: CT Procedure: STROKE CTA HEAD AND NECK W/CON Multiplanar Sagittal and Coronal images were obtained. CONTRAST: 100 cc Isovue 370 One or more dose reduction techniques were used (e.g., Automated exposure control, adjustment of the mA and/or kV according to patient size, use of iterative reconstruction technique). RADIATION DOSE SUMMARY: DLP: 723 mGycm COMPARISON: None FINDINGS: Aortic Arch: Intact Brachiocephalic and Subclavians: Unremarkable RIGHT Carotid: Right CCA: Patent Right ICA: Patent Maximum stenosis (NASCET): 0 % Right ECA: Patent LEFT Carotid: Left CCA: Patent Left ICA: Patent Maximum stenosis (NASCET): 0 % Left ECA: Patent Vertebrals: Patent RIGHT Vertebral: Patent LEFT Vertebral: Patent Anatomy: Unremarkable Aneurysm or avm: None Anterior cerebral arteries: Patent Middle cerebral arteries: Patent Basilar artery: Patent Posterior cerebral arteries: Patent Other major branches of the posterior circulation: Patent Major venous structures: Patent Other findings: Neck: Clear lungs: Unremarkable bones: There is no acute abnormality CT/STROKE CTA Head AND Neck W/Con IMPRESSION: No significant stenosis or occlusion is identified in the carotid system in the head or neck. Reading Location: [facility]
--- NOTE | 2025-08-21 09:44 | ED.VIS.STROK ---
HPI History of Present Illness Chief Complaint: Stroke Alert Detail of Chief Complaint: Left facial droop Informant: patient and EMS Narrative Narrative: Patient presents with left-sided facial droop that he noticed this morning around 7:30 AM. He thinks he did not have this when he went to bed last night. He did sleep well because of some sciatic nerve pain he has been having. He was up throughout the night. Patient was seen in admitted less than a week ago for strokelike symptoms and had stroke workup at that time. He does take aspirin. Patient denies any focal weakness. He denies difficulty with speech. He describes some mild burning sensation to the left eye. He was treated with amoxicillin about a week ago or so for sinus infection. [facility] Medical History Caregiver with fatigue Caregiver burden Health care maintenance BPH (benign prostatic hyperplasia) Wears hearing aid Wears glasses Cancer Rheumatoid arthritis History of stress test History of irregular heartbeat Left groin hernia Cataract, bilateral GERD (gastroesophageal reflux disease) Flu vaccine need Heart valve problem Hypertension Basal cell carcinoma Arthritis Seasonal allergies Home Medications ?Medication ?Instructions ?Recorded ?Last Taken ?Type hydroxychloroquine 200 mg tablet 200 mg PO BID RA 10/07/17 08/21/25 History (Plaquenil) methotrexate sodium 2.5 mg tablet 17.5 mg PO MO RA 04/13/18 08/14/25 History folic acid 1 mg tablet 1 mg PO BID SUPPLEMENT 10/21/19 08/21/25 History multivitamin 1 tab PO DAILY SUPPLEMENT 10/21/19 08/20/25 History loratadine 10 mg tablet 10 mg PO DAILY PRN ALLERGIES 03/05/20 Unknown History lisinopril 20 mg tablet 20 mg PO DAILY blood pressure #90 06/12/25 08/21/25 Rx tabs amoxicillin 500 mg capsule 500 mg PO TID #30 caps 08/16/25 08/20/25 Rx aspirin 81 mg chewable tablet 81 mg PO DAILY 3 months #90 tabs 08/19/25 08/21/25 Rx (Panfilo Chewable Low Dose Aspirin) atorvastatin 40 mg tablet (Lipitor) 40 mg PO QHS 1 month #30 tabs 08/19/25 08/20/25 Rx acetaminophen 500 mg capsule 1,000 mg PO Q6H PRN fever or pain 08/21/25 08/20/25 History Allergy/AdvReac Type Severity Reaction Status Date / Time No Known Allergies Allergy Verified 08/18/25 07:22 Family History Mother Breast cancer Surgical History Hx of bilateral cataract extraction H/O cataract removal with insertion of prosthetic lens History of right hip replacement History of colonoscopy History of cholecystectomy Social History Smoking Status: Never smoker alcohol intake: never substance use type: does not use what type of physical activity do you participate in: none ROS ROS ED Review of Systems ROS Unobtainable: other Constitutional Constitutional ED: Reports lethargy; Denies chills, fever(s), sweats or weight loss Eyes Eyes: Denies blurry vision, change in vision or diplopia ENT ENT ED: Denies rhinorrhea or sore throat Cardiovascular Cardiovascular: Denies chest pain, orthopnea or racing heartbeat Respiratory/Chest Respiratory/Chest: Denies cough, dyspnea, dyspnea on exertion, orthopnea or sputum Gastrointestinal Gastrointestinal: Denies abdominal pain, diarrhea, nausea or vomiting Genitourinary Genitourinary ED: Denies dysuria, hematuria or urinary frequency Musculoskeletal Musculoskeletal: Denies arthralgias, back pain, myalgias or neck pain Integumentary Denies abscess, Abrasions or rash Neurologic Neurologic: Reports other Details: Left facial droop ; Denies headache(s) or weakness Psychiatric Psychiatric: Denies anxiety, depression or suicidal thoughts Endocrine Endocrinology: Denies polydipsia, polyphagia or polyuria Hematologic/Lymphatic Hematologic/Lymphatic: Denies easy bleeding, easy bruising or lymphadenopathy Allergic/Immunologic Allergic/Immunologic ED: Denies mouth swelling, tongue swelling or urticaria EXAM Physical Exam Const Vital Signs: 08/21/25 09:38 08/21/25 09:43 08/21/25 09:53 Temperature 98.2 F 98.2 F Temperature Source Oral Oral Pulse Rate 84 84 Respiratory Rate 16 16 Blood Pressure 202/110 H 202/110 H Blood Pressure Mean 140 140 Pulse Ox 96 96 Oxygen Delivery Method Room Air Room Air Room Air 08/21/25 09:59 08/21/25 10:13 08/21/25 10:30 Temperature Temperature Source Pulse Rate 87 82 78 Respiratory Rate 16 18 16 Blood Pressure 157/94 H 162/89 H 153/93 H Blood Pressure Mean 115 113 113 Pulse Ox 97 94 95 Oxygen Delivery Method Room Air Positive well nourished and well developed General Appearance ED: well developed and NAD HEENT Reports TM's clear and moist mucous membranes normocephalic and atraumatic; Negative for trauma or tenderness Tympanic Membrane ED: Yes TM's clear Eyes PERRL and EOMs intact bilaterally General Eye ED: Negative for pale conjunctiva or scleral icterus Neck no lymphadenopathy, supple and no JVD General: Negative for tenderness Chest Wall inspection of chest normal and palpation of chest normal Chest: Negative for tenderness Resp normal respiratory effort and clear to auscultation bilaterally Effort and Inspection: Negative for respiratory distress or pain with movement Auscultation: Negative for rhonchi, wheezes or diminished lung sounds Cardio regular rate, regular rhythm, S1 normal heart sound, S2 normal heart sound and no murmurs Peripheral Pulses: pulses 2+ throughout GI normal to inspection, nondistended, normoactive bowel sounds, soft to palpation, non-tender, non-distended and no masses Back/Spine no CVA tenderness and no thoracic nor lumbar tenderness Extremity normal to inspection General Extremety ED: Negative for edema General Extremity: Negative for edema Neuro oriented x3, CN's II-XII intact bilaterally, no sensory deficits noted and gait normal Neuro Narrative: Left facial droop. NIH stroke scale is a 2 due to facial droop. No focal weakness otherwise. No difficulty with speech. No significant vision changes noted. Sensorium / Orientation: awake, alert, oriented to person, oriented to place and oriented to time Motor Exam: strength 5/5 throughout and strength abnormal Psych mental status grossly normal Skin no rashes or lesions noted and no wounds MDM MDM MDM Narrative Medical decision making narrative: Patient presents with strokelike symptoms. Recent admission for stroke workup which is negative. Patient had a CT scan of the brain with without contrast that showed just chronic involutional changes. CTA head and neck ordered and is pending. Patient was seen by stroke neurologist. It is agreed he is not a thrombolytic candidate as onset of symptoms unclear as he woke up with symptoms. Patient was recommended to be admitted for repeat MRI with thin slices through the brainstem. Will obtain lab results and discussed with hospitalist to evaluate for admission. Patient was seen by stroke neurologist who wanted patient admitted and have his aspirin increased to full dose 324 mg. Also recommended repeating the MRI with thin slices through the midbrain. CT scan of the brain without contrast showed chronic involutional changes. CTA head and neck was unremarkable. CBC with differential showed a white count of 6.2 with hemoglobin 12.4 and platelet count of 292. Chemistries unremarkable. Troponin slightly elevated at 24 but at patient's baseline and he is not having chest pain and do not feel he is having acute coronary syndrome. Patient did come in hypertensive initially but without any treatment repeat blood pressure 153/93. Will discuss with hospitalist to evaluate patient for admission Lab Data Attestation: I reviewed the patient's lab results. Labs: Laboratory Results - last 24 hr 08/21/25 09:55 WBC 6.2 RBC 3.94 L Hgb 12.4 L Hct 37.1 L MCV 94.2 H MCH 31.5 MCHC 33.4 RDW Std Deviation 45.7 H RDW Coeff of Filemon 13.7 Plt Count 292 MPV 8.3 Immature Gran % (Auto) 1.900 H Neut % (Auto) 67.7 Lymph % (Auto) 20.2 [place] % (Auto) 6.8 Eos % (Auto) 2.4 Baso % (Auto) 1.0 Absolute Neuts (auto) 4.2 Absolute Lymphs (auto) 1.25 Nucleated RBC % 0 PT 15.0 H INR 1.2 APTT 31.2 Sodium 136 Potassium 3.9 Chloride 101 Carbon Dioxide 28.5 Anion Gap 7 BUN 15 Creatinine 0.91 Estim Creat Clear Calc 73.43 Est GFR (MDRD) Non-Af 86 BUN/Creatinine Ratio 16.8 Glucose 95 Calcium 8.5 Troponin T High Sens 24 H D Radiography Diagnostic Testing: Clinical Impression(s) from Imaging Studies Brain CT 08/21/25 09:43 IMPRESSION: CHRONIC CHANGES. NO ACUTE FINDINGS. Stable examination. Stroke Alert: Chronic changes The critical findings in the findings and impression above were relayed directly by me by telephone to Tiffany Chicas on 08/21/2025 at 9:59 am with readback verification. Reading Location: [id number] Head/Neck CTA 08/21/25 09:43 IMPRESSION: No significant stenosis or occlusion is identified in the carotid system in the head or neck. Reading Location: [facility] Initial EKG: Attestation: I personally reviewed and interpreted this EKG as follows: Comments: Sinus rhythm with ventricular rate of 74 bpm with right bundle branch block and left anterior fascicular block Discharge Plan Dx/Rx/DC Orders Clinical Impression: Acute CVA (cerebrovascular accident), Hypertension Disposition Disposition: Acute Care Hospital [facility]
[2025-08-21 10:04] LABS: Hematocrit 37.1 % (40-54); Hemoglobin 12.4 g/dL (13.0-16.5); Immature Granulocytes Count 0.120 X10^3/uL (0.0-0.0); Mean Corp Hgb Conc 33.4 g/dL (32-36); Mean Corpuscular Volume 94.2 fL (80-94); Mean Platelet Vol. 8.3 fl (6.2-12.0); NRBC Flagged by Analyzer 0 % (0-5); Platelet Count 292 K/mm3 (150-450); RBC Distribution Width CV 13.7 % (11.6-14.6); RBC Distribution Width SD 45.7 fl (35.1-43.9); Red Blood Count 3.94 M/mm3 (4.6-6.2); White Blood Count 6.2 K/mm3 (4.4-11.0)
[2025-08-21 10:12] LABS: Prothrombin Time (Protime)PT. 15.0 SECONDS (11.7-14.9)
[2025-08-21 10:13] LABS: Partial Thromboplast Time 31.2 Seconds (24.1-36.2)
[2025-08-21 10:32] LABS: Anion Gap 7 (5-15); BUN 15 mg/dL (4-19); BUN/Creat Ratio 16.8 RATIO (10-20); Calcium,Total 8.5 mg/dL (7.6-11.0); Carbon Dioxide 28.5 mmol/L (21.0-32.0); Chloride 101 mmol/L (98-108); Estimated Creatinine Clearance 73.43 ml/min (50-250); Glucose 95 mg/dL (70-99); Potassium 3.9 mmol/L (3.3-5.1); Troponin T High Sensitivity 24 ng/L (<=22)
[2025-08-21 12:12] LABS: Troponin T High Sens 2 HR 22 ng/L (<=22)
--- NOTE | 2025-08-21 12:23 | PCM.HP.STD ---
HPI - General General Date of Admission: 08/21/25 Date of Service: 08/21/25 Chief Complaint: Left lower facial droop HPI Narrative OLI GALEANA, is a 80-year-old male with a history of recent disequilibrium admitted and discharged 2 days ago with a negative MRI, hypertension, rheumatoid arthritis who presented to [facility] ED 08/21/2025 with left-sided facial droop that he noticed at 7:30 AM. He does not think he had this when he went to bed last night. He denies any problems with speech or focal weakness. In the ED temp 98.2, heart rate 84 with blood pressure 202/110, respiratory rate 16 pulse ox 96% on room air. CBC with hemoglobin of 12.4, BMP within normal limits, INR 1.2, troponin of 24. CT brain with stable examination and CTA head and neck no LVO. Patient was a stroke alert in the ED and teleneurology evaluated, per ED physician it was recommended patient be on full dose aspirin and a repeat MRI. Hospitalist contacted for admission. Patient evaluated at bedside. He reports history as above, yesterday he was in his usual health and this a.m. he woke up and noticed left lower facial droop, said that he does have some sensation changes on left lower side of his face and that his eye does not feel quite right. Denies any current headache. Denies any further disequilibrium, no other numbness, weakness, tingling/neurocomplaints at this time. No chest pain or shortness of breath. Has been taking Augmentin and has had some GI upset with this but no profound diarrhea reported [facility] Medical History Caregiver with fatigue Caregiver burden Health care maintenance BPH (benign prostatic hyperplasia) Wears hearing aid Wears glasses Cancer Rheumatoid arthritis History of stress test History of irregular heartbeat Left groin hernia Cataract, bilateral GERD (gastroesophageal reflux disease) Flu vaccine need Heart valve problem Hypertension Basal cell carcinoma Arthritis Seasonal allergies Home Medications ?Medication ?Instructions ?Recorded ?Last Taken ?Type hydroxychloroquine 200 mg tablet 200 mg PO BID RA 10/07/17 08/21/25 History (Plaquenil) methotrexate sodium 2.5 mg tablet 17.5 mg PO MO RA 04/13/18 08/14/25 History folic acid 1 mg tablet 1 mg PO BID SUPPLEMENT 10/21/19 08/21/25 History multivitamin 1 tab PO DAILY SUPPLEMENT 10/21/19 08/20/25 History loratadine 10 mg tablet 10 mg PO DAILY PRN ALLERGIES 03/05/20 Unknown History lisinopril 20 mg tablet 20 mg PO DAILY blood pressure #90 06/12/25 08/21/25 Rx tabs amoxicillin 500 mg capsule 500 mg PO TID #30 caps 08/16/25 08/20/25 Rx aspirin 81 mg chewable tablet 81 mg PO DAILY 3 months #90 tabs 08/19/25 08/21/25 Rx (Panfilo Chewable Low Dose Aspirin) atorvastatin 40 mg tablet (Lipitor) 40 mg PO QHS 1 month #30 tabs 08/19/25 08/20/25 Rx acetaminophen 500 mg capsule 1,000 mg PO Q6H PRN fever or pain 08/21/25 08/20/25 History Allergy/AdvReac Type Severity Reaction Status Date / Time No Known Allergies Allergy Verified 08/18/25 07:22 Family History Mother Breast cancer Surgical History Hx of bilateral cataract extraction H/O cataract removal with insertion of prosthetic lens History of right hip replacement History of colonoscopy History of cholecystectomy Social History Smoking Status: Never smoker alcohol intake: never substance use type: does not use what type of physical activity do you participate in: none ROS ROS Narrative General: Denies fever/chills HENT: Denies headache, denies stuffy nose, denies sore throat EYES: Denies changes in vision but notes that his left eye feels different than usual Resp: Denies cough, denies shortness of breath Cardiac: Denies chest pain GI: Denies abdominal pain, has had a little bit of GI upset and diarrhea, denies nausea/vomiting : Denies changes in urination Extremity: Denies swelling MSK: Denies weakness Neuro: Some sensory changes on left lower part of face Heme: Denies any bleeding or bruising Skin: Denies rashes Psychiatric: No complaints voiced Vital Signs Vital Signs Vital Signs: 08/21/25 09:38 08/21/25 09:43 08/21/25 09:53 Temperature 98.2 F 98.2 F Temperature Source Oral Oral Pulse Rate 84 84 Respiratory Rate 16 16 Blood Pressure 202/110 H 202/110 H Blood Pressure Mean 140 140 Pulse Ox 96 96 Oxygen Delivery Method Room Air Room Air Room Air 08/21/25 09:59 08/21/25 10:13 08/21/25 10:30 Temperature Temperature Source Pulse Rate 87 82 78 Respiratory Rate 16 18 16 Blood Pressure 157/94 H 162/89 H 153/93 H Blood Pressure Mean 115 113 113 Pulse Ox 97 94 95 Oxygen Delivery Method Room Air 08/21/25 10:38 08/21/25 11:04 08/21/25 11:25 Temperature 97.9 F Temperature Source Pulse Rate 77 77 84 Respiratory Rate 14 11 L 18 Blood Pressure 164/94 H 169/97 H 160/85 H Blood Pressure Mean 117 121 110 Pulse Ox 98 95 95 Oxygen Delivery Method Room Air 08/21/25 11:30 08/21/25 12:00 Temperature Temperature Source Pulse Rate 72 76 Respiratory Rate 15 15 Blood Pressure 157/89 H 153/87 H Blood Pressure Mean 110 107 Pulse Ox 96 97 Oxygen Delivery Method Weight Weight: 84 kg Body Mass Index (BMI) 25.1 Physical Exam Narrative General: Alert, oriented, no apparent distress HEENT: Atraumatic, left lower facial droop, some left lid like Eyes: Anicteric, normal conjunctiva, pupils equal, has some lid lag and cannot close his right eye without closing his left but is unable to close his left and keep his right eye open Neck: Supple Respiratory: Clear to auscultation bilaterally, normal respiratory effort Cardiovascular: Regular rate and rhythm GI: Soft, nontender, nondistended Extremities: No edema Musculoskeletal: Strength 5 out of 5 in right upper extremity, 5 out of 5 left upper extremity, 5 out of 5 right lower extremity, 5 out of 5 left lower extremity Neuro: Some lid lag in the left lid and left lower facial droop with some altered sensation, cranial nerves otherwise II through XII intact, [id number] without significant difficulty with right arm however very slight difficulty with left arm more so than right Skin: No rashes appreciated Psych: Cooperative Results Lab / Micro Data 08/21/25 09:55 08/21/25 09:55 Labs: Laboratory Results - last 24 hr 08/21/25 09:55: WBC 6.2, RBC 3.94 L, Hgb 12.4 L, Hct 37.1 L, MCV 94.2 H, MCH 31.5, MCHC 33.4, RDW Std Deviation 45.7 H, RDW Coeff of Filemon 13.7, Plt Count 292, MPV 8.3, Immature Gran % (Auto) 1.900 H, Neut % (Auto) 67.7, Lymph % (Auto) 20.2, [place] % (Auto) 6.8, Eos % (Auto) 2.4, Baso % (Auto) 1.0, Absolute Neuts (auto) 4.2, Absolute Lymphs (auto) 1.25, Nucleated RBC % 0, PT 15.0 H, INR 1.2, APTT 31.2, Sodium 136, Potassium 3.9, Chloride 101, Carbon Dioxide 28.5, Anion Gap 7, BUN 15, Creatinine 0.91, Estim Creat Clear Calc 73.43, Est GFR (MDRD) Non-Af 86, BUN/Creatinine Ratio 16.8, Glucose 95, Calcium 8.5, Troponin T High Sens 24 H D 08/21/25 11:40: Troponin T Hi Sens 2 Hr 22 Imaging Radiology Impression Brain CT 08/21/25 09:43 IMPRESSION: CHRONIC CHANGES. NO ACUTE FINDINGS. Stable examination. Stroke Alert: Chronic changes The critical findings in the findings and impression above were relayed directly by me by telephone to Tiffany Chicas on 08/21/2025 at 9:59 am with readback verification. Reading Location: [facility] Head/Neck CTA 08/21/25 09:43 IMPRESSION: No significant stenosis or occlusion is identified in the carotid system in the head or neck. Reading Location: [facility] Assessment & Plan Assessment/Plan (1) Neurologic abnormality: PLAN: Plan # Left lower facial droop and sensory changes -Unclear last known well but it was sometime yesterday evening -Admit to tele -CT head w/ no acute process -CTA head and neck no LVO -MRI to be repeated -NIH q4hr -asa, statin, per ED physician report is recommended full dose aspirin and to continue statin - Will not repeat echo as patient had 1 3 days ago -PT/OT/Speech eval -Teleneuro consult placed -Hold BP medications to allow for permissive hypertension for 24 hours unless SBP greater than 220 or DBP greater than 120 or until stroke is ruled out # Recent sinusitis diagnosis -Given GI upset we will switch amoxicillin to doxycycline #Hypertension - Holding home antihypertensives to allow for permissive hypertension as above # History of RA - Continue home medications #DVT ppx: SCDs Rachel Marc MD Time spent in the patient's overall evaluation, decision-making process, review of diagnostic data, adjustment of management, discussion with other providers, nursing and ancillary staff involved in patient's care documentation, 57 Minutes Charges/Coding Visit Charges Inpatient E&M: 90123 Init Hosp L2
--- NOTE | 2025-08-21 12:35 | MRI_ITS ---
PROCEDURE: BRAIN WITHOUT CONTRAST 08/21/2025 REASON FOR EXAM: LEFT FACIAL DROOP TECHNIQUE: Procedure Code: MRIBR Modality: MR Procedure: BRAIN WITHOUT CONTRAST Multiplanar and multisequence images were obtained. COMPARISON: MRI dated 08/18/2025. FINDINGS: Minimal nonspecific FLAIR hyperintensities in the bilateral cerebral white matter, unchanged from the previous study and probably represent minimal chronic microvascular ischemic changes. Otherwise the brain parenchyma appears unremarkable. The jerez-white matter differentiation is appropriate. The ventricles are normal in size and configuration. No midline shift. The midline structures are intact, specifically the corpus callosum, septum pellucidum, pituitary gland, and cerebellar vermis. The cervicomedullary junction appears unremarkable. The paranasal sinuses and mastoid air cells are clear. Diffusion-weighted images demonstrate no restricted diffusion. No MR evidence of acute ischemia. MRI/Brain without Contrast IMPRESSION: No acute intracranial MR abnormality. Stable minimal chronic microvascular ischemic changes. Reading Location: [id number]
[2025-08-21 14:22] LABS: Troponin T High Sens 4 HR 25 ng/L (<=22)
[2025-08-21] MEDS: Ensure Plus High Protein 120 ML LIQUID PO (18:18)
[2025-08-22 01:00] VITALS: BP 147/88; PULSE 74; RESP 16; TEMP 36.6; O2SAT 94
[2025-08-22 04:19] VITALS: BMI 25.1
[2025-08-22 05:00] VITALS: BP 139/88; PULSE 77; RESP 18; TEMP 36.3; O2SAT 96
[2025-08-22 07:01] VITALS: O2SAT 94
[2025-08-22 07:30] VITALS: BP 142/83; PULSE 75; RESP 16; TEMP 36.4; O2SAT 94
[2025-08-22 07:52] LABS: Hematocrit 42.1 % (40-54); Hemoglobin 14.1 g/dL (13.0-16.5); Immature Granulocytes Count 0.110 X10^3/uL (0.0-0.0); Mean Corp Hgb Conc 33.5 g/dL (32-36); Mean Corpuscular Volume 93.8 fL (80-94); Mean Platelet Vol. 8.4 fl (6.2-12.0); NRBC Flagged by Analyzer 0 % (0-5); Platelet Count 359 K/mm3 (150-450); RBC Distribution Width CV 14.0 % (11.6-14.6); RBC Distribution Width SD 46.9 fl (35.1-43.9); Red Blood Count 4.49 M/mm3 (4.6-6.2); White Blood Count 9.3 K/mm3 (4.4-11.0)
[2025-08-22 08:28] LABS: Anion Gap 11 (5-15); BUN 20 mg/dL (4-19); BUN/Creat Ratio 26.3 RATIO (10-20); Calcium,Total 8.8 mg/dL (7.6-11.0); Carbon Dioxide 24.4 mmol/L (21.0-32.0); Chloride 104 mmol/L (98-108); Estimated Creatinine Clearance 83.53 ml/min (50-250); Glucose 95 mg/dL (70-99); Potassium 4.1 mmol/L (3.3-5.1)
[2025-08-22] MEDS: Ensure Plus High Protein 120 ML LIQUID PO ×3 (08:45→16:10)
[2025-08-22 09:43] VITALS: BMI 25.1
--- NOTE | 2025-08-22 10:57 | CASEMGMT ---
Social Work Per imaging pt negative for stroke, therefore PHQ9 not completed. JESUS Vieyra
--- NOTE | 2025-08-22 12:10 | CON.PCM.NE_ITS ---
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 Exam consistent with CN 7 lesion and imaging without clear stroke in brainstem but does not preclude a brainstem stroke (but nothing on exam to suggest there is a stroke either). Diagnosis: microvascular peripheral CN 7 lesion Plan: - keep SBP 130/80 - continue ASA 81mg, crestor - will hold on prednisone given concern for effect on BP and mild symptoms I personally attended this patient and spent a total time of 45minutes evaluating this patient including clinical assessment, review of chart, medical history imaging, and determining appropriate treatment and workup. HPI Consult Data Date of Consult: 08/22/25 HPI Narrative HPI Narrative: 80-year-old male with a history of recent disequilibrium admitted and discharged 2 days ago with a negative MRI, hypertension, rheumatoid arthritis who presented to [facility] ED 08/21/2025 with left-sided facial droop that he noticed at 7:30 AM. He does not think he had this when he went to bed last night. He denies any problems with speech or focal weakness. In the ED temp 98.2, heart rate 84 with blood pressure 202/110, respiratory rate 16 pulse ox 96% on room air. CBC with hemoglobin of 12.4, BMP within normal limits, INR 1.2, troponin of 24. CT brain with stable examination and CTA head and neck no LVO. Patient was a stroke alert in the ED and teleneurology evaluated, per ED physician it was recommended patient be on full dose aspirin and a repeat MRI. Hospitalist contacted for admission. Patient evaluated at bedside. He reports history as above, yesterday he was in his usual health and this a.m. he woke up and noticed left lower facial droop, said that he does have some sensation changes on left lower side of his face and that his eye does not feel quite right. Denies any current headache. Denies any further disequilibrium, no other numbness, weakness, tingling/neurocomplaints at this time. No chest pain or shortness of breath. Has been taking Augmentin and has had some GI upset with this but no profound diarrhea reported Neurologic History The dizziness started last Thursday when he got up - did not feel steady and the dizziness improved by Thursday noon and was discharges as a TIA. Droopiness in face started yesterday morning and he noted that screen on the phone seemed les crisp than normal. On Thursday he thinks that there was some hyperaccusis in the L ear as well. Noted a metallic abnormal taste in the mouth. On admission BP was very high. Had some sinus issues the last month and been on Augmentin but no drainage and no cold sores or new rashes. Noted slight tingling in the L side of face No other weakness or tingling noted in rest of body. Has been measuring BP every other week at home and it has run 130s systolic. Never had BP in the 200s like this. Exam -? General: Laying comfortably in bed; in no acute distress. -? HENT: Normal oropharynx and mucosa. Normal external appearance of ears and nose. Exophthalmos. -? Neck: Supple, no pain or tenderness -? CV:? No peripheral edema. -? Pulmonary:? Normal respiratory effort. -? Ext: No cyanosis, edema, or deformity -? Skin: No rash. Normal palpation of skin.? -? Musculoskeletal: full range of motion; no joint tenderness. Normal digits and nails by inspection. No clubbing. -? NEURO: -? Mental Status: The patient was alert and oriented to time, place, and person. Normal recent/remote memory, concentration, and general fund of knowledge. -? Language: speech is clear.? Naming, repetition, fluency, and comprehension intact. -? Cranial Nerves: PERRL 3mm/brisk. EOMI, visual carbone full, CN 7 peripheral lesion, House Brackman 3, facial sensation intact, hearing intact, tongue midline, no evidence of atrophy or fibrillations. -? Motor: normal bulk, tone, and strength throughout. No pronator drift or satelliting. Upper and lower extremities equal bilaterally. -? Detailed strength exam as performed by the nurse/EVE and witnessed by the physician: l R L SA 5 5 EE 5 5 EF WE WF Production Specialist 5 5 HF 5 5 KE 5 5 KF DF PF -? Tone: is normal and bulk is normal -? Sensation- Intact to light touch bilaterally -? Coordination: No dysmetria on [id number], finger follow finger or [id number]. -? Gait- deferred [facility] Medical History Caregiver with fatigue Caregiver burden Health care maintenance BPH (benign prostatic hyperplasia) Wears hearing aid Wears glasses Cancer Rheumatoid arthritis History of stress test History of irregular heartbeat Left groin hernia Cataract, bilateral GERD (gastroesophageal reflux disease) Flu vaccine need Heart valve problem Hypertension Basal cell carcinoma Arthritis Seasonal allergies Home Medications ?Medication ?Instructions ?Recorded ?Last Taken ?Type hydroxychloroquine 200 mg tablet 200 mg PO BID RA 12/2008/21/25 History (Plaquenil) methotrexate sodium 2.5 mg tablet 17.5 mg PO MO RA 07/2208/14/25 History folic acid 1 mg tablet 1 mg PO BID SUPPLEMENT 10/2108/21/25 History multivitamin 1 tab PO DAILY SUPPLEMENT 08/20/25 History loratadine 10 mg tablet 10 mg PO DAILY PRN ALLERGIES 03/05/20 Unknown History lisinopril 20 mg tablet 20 mg PO DAILY blood pressur e #90 06/12/25 08/21/25 Rx tabs amoxicillin 500 mg capsule 500 mg PO TID #30 caps 08/0508/20/25 Rx aspirin 81 mg chewable tablet 81 mg PO DAILY 3 months #90 tabs 08/19/25 08/21/25 Rx (Panfilo Chewable Low Dose Aspirin) atorvastatin 40 mg tablet (Lipitor) 40 mg PO QHS 1 thu #30 tabs 08/19/25 08/20/25 Rx acetaminophen 500 mg capsule 1,000 mg PO Q6H PRN fever or pain 08/21/25 08/20/25 History Allergy/AdvReac Type Severity Reaction Status Date / Time No Known Allergies Allergy Verified 08/18/25 07:22 Family History Mother Breast cancer Surgical History Hx of bilateral cataract extraction H/O cataract removal with insertion of prosthetic lens History of right hip replacement History of colonoscopy History of cholecystectomy Social History Smoking Status: Never smoker alcohol intake: never substance use type: does not use what type of physical activity do you participate in: none Vital Signs Vital Signs Vital Signs: 08/21/25 13:00 08/21/25 14:00 08/21/25 17:00 Temperature 98.0 F 97.2 F L Temperature Source Temporal Temporal Pulse Rate 74 79 Pulse Strength Respiratory Rate 16 18 Respiratory Effort Normal Non-Labored Respiratory Depth Normal Respiratory Pattern Normal Blood Pressure 146/80 H 150/85 H Blood Pressure Mean 102 106 Blood Pressure Source Blood Pressure Position Blood Pressure Location Pulse Ox 98 95 Oxygen Delivery Method Room Air Room Air Room Air 08/21/25 21:00 08/21/25 21:00 08/21/25 22:00 Temperature 98.5 F Temperature Source Oral Pulse Rate 82 Pulse Strength Normal (2+) Respiratory Rate 18 Respiratory Effort Normal Non-Labored Respiratory Depth Normal Respiratory Pattern Normal Blood Pressure 154/91 H Blood Pressure Mean 112 Blood Pressure Source Monitor Blood Pressure Position Sitting Blood Pressure Location Right Arm Pulse Ox 94 Oxygen Delivery Method Room Air Room Air 08/22/25 01:00 08/22/25 05:00 08/22/25 05:00 Temperature 97.9 F 97.3 F L Temperature Source Oral Temporal Pulse Rate 74 77 Pulse Strength Respiratory Rate 16 18 Respiratory Effort Normal Non-Labored Respiratory Depth Respiratory Pattern Blood Pressure 147/88 H 139/88 H Blood Pressure Mean 107 105 Blood Pressure Source Monitor Monitor Blood Pressure Position Semi-Fowlers Sitting Blood Pressure Location Right Arm Right Arm Pulse Ox 94 96 Oxygen Delivery Method Room Air Room Air Room Air 08/22/25 07:30 Temperature 97.6 F L Temperature Source Oral Pulse Rate 75 Pulse Strength Respiratory Rate 16 Respiratory Effort Respiratory Depth Respiratory Pattern Blood Pressure 142/83 H Blood Pressure Mean 102 Blood Pressure Source Monitor Blood Pressure Position Sitting Blood Pressure Location Left Arm Pulse Ox 94 Oxygen Delivery Method Room Air Weight Weight: 84 kg Body Mass Index (BMI) 25.1 EEG Results Procedure Details EEG Procedure Details: OLI GALEANA is a 80 year old M with a past medical history of , who presents for evaluation of Electroencephalogram on DATE at TIME Lab / Micro Data 08/22/25 07:27 08/22/25 07:27 Labs: Laboratory Results - last 24 hr 08/21/25 11:40: Troponin T Hi Sens 2 Hr 22 08/21/25 13:38: Troponin T Hi Sens 4Hr 25 H 08/22/25 07:27: WBC 9.3, RBC 4.49 L, Hgb 14.1, Hct 42.1, MCV 93.8, MCH 31.4, MCHC 33.5, RDW Std Deviation 46.9 H, RDW Coeff of Filemon 14.0, Plt Count 359, MPV 8.4, Immature Gran % (Auto) 1.200 H, Neut % (Auto) 74.2 H, Lymph % (Auto) 15.2 L , Baldwin % (Auto) 6.9, Eos % (Auto) 1.6, Baso % (Auto) 0.9, Absolute Neuts (auto) 6.9, Absolute Lymphs (auto) 1.41, Nucleated RBC % 0, Sodium 140, Potassium 4.1, Chloride 104, Carbon Dioxide 24.4, Anion Gap 11, BUN 20 H, Creatinine 0.77, Estim Creat Clear Calc 83.53, Est GFR (MDRD) Non-Af 92, BUN/Creatinine Ratio 26.3 H, Glucose 95, Calcium 8.8 Imaging Radiology Impression Brain MRI 08/21/25 12:35 IMPRESSION: No acute intracranial MR abnormality. Stable minimal chronic microvascular ischemic changes. Reading Location: [id number] Active Medications Active Medications Active Medications: Current Medications Generic Name Dose Route Start Last Admin Trade Name Freq PRN Reason Stop Dose Admin Acetaminophen 650 mg 08/21/25 13:24 08/22/25 04:02 Acetaminophen 325 Mg Tablet PO 650 mg Q6H PRN PRN Administration Pain 1-10 Or Fever >100.7 Albuterol Sulfate 2.5 mg 08/21/25 13:24 Albuterol 2.5 Mg/3 Ml Vial.Neb. INHALATION Q2H PRN PRN SOB &/OR WHEEZING Aspirin 81 mg 08/22/25 08:00 08/22/25 08:40 Aspirin 81 Mg Tab.Chew PO 81 mg BREAKFAST SOURAV Administration Atorvastatin Calcium 40 mg 08/21/25 22:00 08/21/25 22:33 Atorvastatin Calcium 40 Mg Tablet PO 40 mg QHS SOURAV Administration Doxycycline Monohydrate 100 mg 08/21/25 22:00 08/22/25 08:40 Doxycycline 100 Mg Capsule PO 100 mg BID SOURAV Administration Folic Acid 1 mg 08/21/25 17:00 08/22/25 08:40 Folic Acid 1 Mg Tablet PO 1 mg BIDCM SOURAV Administration Hydralazine HCl 5 mg 08/21/25 13:24 Hydralazine 20 Mg/Ml Vial IV 08/22/25 13:25 Q30M PRN maintain BP parameters with HR <60 Hydroxychloroquine Sulfate 200 mg 08/21/25 22:00 08/22/25 08:40 Hydroxychloroquine 200 Mg Tablet PO 200 mg BID SOURAV Administration Sodium Chloride 250 mls @ 15 mls/hr 08/21/25 15:46 IV .[id number] PRN Saline Flush Sodium Chloride 250 mls @ 15 mls/hr 08/21/25 15:46 IV .[id number] PRN Additional IVPB Infusion Labetalol HCl 10 - 20 mg 08/21/25 13:24 Labetalol 20 Mg/4 Ml Vial IV 08/22/25 13:25 Q10M PRN PRN maintain BP parameters with HR >/=60 Melatonin 10 mg 08/21/25 13:24 Melatonin 10 Mg Tablet PO QHS PRN PRN INSOMNIA Methotrexate 10 mg 08/21/25 13:24 08/21/25 15:32 Methotrexate 2.5 Mg Tablet PO 10 mg Mo@1200 SOURAV Administration Methotrexate 7.5 mg 08/21/25 17:00 08/21/25 18:18 Methotrexate 2.5 Mg Tablet PO 7.5 mg Mo@1700 SOURAV Administration Nutritional Formula (Lactose Free) 120 ml 08/21/25 17:00 08/22/25 11:57 Ensure Plus High Protein 120 Ml Liquid PO 120 ml TIDCM SOURAV Administration Ondansetron HCl 4 mg 08/21/25 13:24 Ondansetron 4 Mg/2 Ml Vial IV Q8H PRN PRN NAUSEA/VOMITING Senna/Docusate Sodium 2 tablet 08/21/25 13:24 Senna/Docusate Sodium 1 Tablet PO BID PRN PRN Constipation Sodium Chloride 10 - 40 ml 08/21/25 15:46 0.9% Saline Lock 10 Ml Syringe IV UD PRN SALINE FLUSH NIHSS NIHSS Nursing Documentation NIHSS Nursing Documentation: NIHSS: Ischemic Stroke/TIA Start: 08/21/25 13:24 Text: For PCU Patients: NIH and Neuro Check every 4 Status: Complete hours, PRN and with change in RN caregiver. Freq: [id number] Protocol: Activity Type Activity Date Activity User E-sign Co-sign Detail Recorded Client Recorded Date Recorded By Document 08/22/25 07:30 desktop 08/22/25 08:35 08/22/25 07:30 NIH Stroke Scale [NIHSS] A score of 0 is normal or asymptomatic . Total possible score is 42. Inpatient: RN or Physician to activate a stroke alert for onset of new stroke symptoms or with NIHSS increase >/= 3 points. Following change in neurological status, NIHSS will be performed per physician order or more frequently PRN. -1a. Level of Consciousness 0 - Alert; keenly responsive -1b. LOC Questions 0 - Answers BOTH questions correctly -1c. LOC Commands 0 - Performs BOTH tasks correctly -2. Best Gaze 0 - Normal -3. Visual 0 - No visual loss -4. Facial Palsy 1 - Minor paralysis ( flattened nasolabial fold , asymmetry on smiling) -5a. Left Arm 0 - No drift; arm holds 90 ( or 45) degrees for full 10 seconds -5b. Right Arm 0 - No drift; arm holds 90 ( or 45) degrees for full 10 seconds -6a. Left Leg 0 - No drift; leg holds 30- degree position for full 5 seconds -6b. Right Leg 0 - No drift; leg holds 30- degree position for full 5 seconds -7. Limb Ataxia 0 - Absent -8. Sensory 0 - Normal; no sensory loss -9. Best Language 0 - No aphasia; normal -10. Dysarthria 0 - Normal -11. Extinction and Inattention 0 - No abnormality -Total 1 Query Text:A score of 0 is normal or asymptomatic. Total possible score is 42 . ED: Notify Physician for NIHSS increase by > / = 3 points. Inpatient: RN or Physician to activate a stroke alert for NIHSS increase of > / = 3 points. Coma Scale [Assess] -Eye Opening Spontaneous -Motor Obeys Commands -Verbal Oriented [Total] -Coma Scale Total 15
--- NOTE | 2025-08-22 14:34 | CASEMGMT ---
BAXTER Met with patient to complete BAXTER form. BAXTER form and its content were verbally explained and patient's questions were answered to the best of my ability.? Patient voiced understanding and signed BAXTER form.? Patient provided a copy of signed BAXTER form and original placed in patient's chart.? Patient had no further questions. Dominique Chua, Discharge Planning Asst
[2025-08-22 15:15] VITALS: BP 153/71; PULSE 84; RESP 16; TEMP 36.8; O2SAT 96
[2025-08-22 15:16] VITALS: BMI 25.1
--- NOTE | 2025-08-22 15:53 | PCM.DC.SUM ---
Providers Date of Admission: 08/21/25 Date of Discharge: 08/22/25 Primary Care Physician: Dr. Zane Carrera MD Consultations 08/21/25 13:24 Consult: Tele-Neurology Routine Consulting Provider: [facility] Reason for Consult: Acute Ischemic Stroke/TIA EMERGENT Consult: No MD Notified: Yes Date Notified: 08/21/25 Time Notified: 12:32 Method of Notification: Answering Service Nursing Unit Staff Notify [facility] of Tele-Neurology Consult: Yes Reason For Visit: CONCERN FOR CVA Diagnosis Discharge Diagnosis (1) Acosta's palsy: Status: Acute Code(s): G51.0 - Acosta's palsy Plan # Left-sided facial droop secondary to microvascular peripheral cranial nerve VII lesion # Uncontrolled hypertension # Recent sinusitis diagnosis #Hypertension # History of RA - Continue home medications Medications at Discharge Home Medications hydroxychloroquine 200 mg tablet (Plaquenil) 200 mg PO BID RA 10/07/17 methotrexate sodium 2.5 mg tablet 17.5 mg PO MO RA 04/13/18 folic acid 1 mg tablet 1 mg PO BID SUPPLEMENT 10/21/19 multivitamin 1 tab PO DAILY SUPPLEMENT 10/21/19 loratadine 10 mg tablet 10 mg PO DAILY PRN ALLERGIES 03/05/20 aspirin 81 mg chewable tablet (Panfilo Chewable Low Dose Aspirin) 81 mg PO DAILY 3 months #90 tabs 08/19/25 atorvastatin 40 mg tablet (Lipitor) 40 mg PO QHS 1 month #30 tabs 08/19/25 acetaminophen 500 mg capsule 1,000 mg PO Q6H PRN fever or pain 08/21/25 doxycycline monohydrate 100 mg capsule 100 mg PO BID 3 days #7 caps 08/22/25 lisinopril 20 mg tablet 40 mg (2 x 20 mg) PO DAILY blood pressure #90 tabs 08/22/25 Hospital Course Summary of Care Provided Minutes Spent on Discharge: 32 Hospital Course: Per HPI: OLI GALEANA, is a 80-year-old male with a history of recent disequilibrium admitted and discharged 2 days ago with a negative MRI, hypertension, rheumatoid arthritis who presented to [facility] ED 08/21/2025 with left-sided facial droop that he noticed at 7:30 AM. He does not think he had this when he went to bed last night. He denies any problems with speech or focal weakness. In the ED temp 98.2, heart rate 84 with blood pressure 202/110, respiratory rate 16 pulse ox 96% on room air. CBC with hemoglobin of 12.4, BMP within normal limits, INR 1.2, troponin of 24. CT brain with stable examination and CTA head and neck no LVO. Patient was a stroke alert in the ED and teleneurology evaluated, per ED physician it was recommended patient be on full dose aspirin and a repeat MRI. Hospitalist contacted for admission. Patient evaluated at bedside. He reports history as above, yesterday he was in his usual health and this a.m. he woke up and noticed left lower facial droop, said that he does have some sensation changes on left lower side of his face and that his eye does not feel quite right. Denies any current headache. Denies any further disequilibrium, no other numbness, weakness, tingling/neurocomplaints at this time. No chest pain or shortness of breath. Has been taking Augmentin and has had some GI upset with this but no profound diarrhea reported INTERVAL HISTORY: In the a.m. patient's symptoms were the entire left side of his face very consistent with a peripheral picture like Acosta's palsy. MRI negative for acute process. Patient evaluated by neurology and they suspected microvascular peripheral cranial nerve VII lesion due to his significant hypertension on arrival with a blood pressure of 202/110. 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 They recommended blood pressure control and continuing aspirin and Crestor. They recommended against prednisone given concerns that this was blood pressure related and that this could exacerbate underlying problem and not help. Discussed this all with patient and he verbalizes understanding. No new complaints on day of discharge and reports he thinks he feels somewhat better. Discharge instructions as follows: - Please check your blood pressure every morning and write this down in a log and take this to your primary care physician appointment on Thursday - Please take 40 mg of lisinopril moving forward, you can take 2 tabs of your 20 mg until your appointment on Thursday in the event your primary provider would want to change something - Please discontinue your amoxicillin, instead we will prescribe doxycycline which you will take twice daily. You will take your first dose tonight and for 3 additional days -I will be important for you to keep your left eye covered, I will also be important to keep it moist throughout the day, you can use artificial tears [id number] for this -Please call your primary care provider's office upon discharge to schedule a hospital follow up within 1 week. -For any concerning signs or symptoms please call 911 or proceed to the nearest emergency department Physical Exam Narrative General: Alert, oriented, no apparent distress HEENT: Atraumatic, left lower facial droop, some left lid like Eyes: Anicteric, normal conjunctiva, pupils equal, has some lid lag and cannot close his right eye without closing his left but is unable to close his left and keep his right eye open Neck: Supple Respiratory: Clear to auscultation bilaterally, normal respiratory effort Cardiovascular: Regular rate and rhythm GI: Soft, nontender, nondistended Extremities: No edema Musculoskeletal: Strength 5 out of 5 in right upper extremity, 5 out of 5 left upper extremity, 5 out of 5 right lower extremity, 5 out of 5 left lower extremity Neuro: Left-sided upper and lower palsy with difficulty completely closing left eye, cranial nerves otherwise II through XII intact, [id number] without significant difficulty bilaterally Skin: No rashes appreciated Psych: Cooperative Weight / BMI Weight Weight: 84 kg Body Mass Index (BMI) 25.1 ABG / Lab / Microbiology Data 08/22/25 07:27 08/22/25 07:27 Laboratory: Laboratory Results - last 24 hr 08/22/25 07:27: WBC 9.3, RBC 4.49 L, Hgb 14.1, Hct 42.1, MCV 93.8, MCH 31.4, MCHC 33.5, RDW Std Deviation 46.9 H, RDW Coeff of Filemon 14.0, Plt Count 359, MPV 8.4, Immature Gran % (Auto) 1.200 H, Neut % (Auto) 74.2 H, Lymph % (Auto) 15.2 L, Mcpherson % (Auto) 6.9, Eos % (Auto) 1.6, Baso % (Auto) 0.9, Absolute Neuts (auto) 6.9, Absolute Lymphs (auto) 1.41, Nucleated RBC % 0, Sodium 140, Potassium 4.1, Chloride 104, Carbon Dioxide 24.4, Anion Gap 11, BUN 20 H, Creatinine 0.77, Estim Creat Clear Calc 83.53, Est GFR (MDRD) Non-Af 92, BUN/Creatinine Ratio 26.3 H, Glucose 95, Calcium 8.8 Radiography Diagnostic Testing: Radiology Impression Brain MRI 08/21/25 12:35 IMPRESSION: No acute intracranial MR abnormality. Stable minimal chronic microvascular ischemic changes. Reading Location: [id number] D/C Instructions DC O2, CPAP, BIPAP Needs Home O2 Discharge instructions: No Meaningful Use Info Meaningful Use Meaningful Use Diagnoses (Choose all that apply): None applicable Discharge Plan Admission Admit Date/Time: 08/21/25 12:23 Primary Reason for Your Visit: left facial droop Attending Provider: Rachel Marc Primary Care Provider: Zane Carrera Consulting Providers: Jorgito Mejía; Bianka Salvador; Katey Jane; Berna Forde; Alissa Serrano; John Christianson; Vianney Shine; Choco Engel; Gustavo Mendez; Kenneth Vasquez; Joie Leal; Padma Nath; Jose Burgos; Jenny Cutler; Tim Rueda; Adilene Hughes; Adam Oakes; Janiya Campos; Julius Colunga; Saniya Tripp; Carl Pina Instructions Patient Instructions: ED Acosta's Palsy, ED High Blood Pressure Hypertension Additional Instructions / Restrictions: DISCHARGE INSTRUCTIONS PLEASE READ *Please take this with you to your next doctors appointment* - Please check your blood pressure every morning and write this down in a log and take this to your primary care physician appointment on Thursday - Please take 40 mg of lisinopril moving forward, you can take 2 tabs of your 20 mg until your appointment on Thursday in the event your primary provider would want to change something - Please discontinue your amoxicillin, instead we will prescribe doxycycline which you will take twice daily. You will take your first dose tonight and for 3 additional days -I will be important for you to keep your left eye covered, I will also be important to keep it moist throughout the day, you can use artificial tears [id number] for this -Please call your primary care provider's office upon discharge to schedule a hospital follow up within 1 week. -For any concerning signs or symptoms please call 911 or proceed to the nearest emergency department Discharge Orders/Prescriptions Prescriptions: New doxycycline monohydrate 100 mg Capsule 100 mg PO BID 3 Days Qty: 7 0RF Continued hydroxychloroquine [Plaquenil] 200 mg tablet 200 mg PO BID Patient Comments: states was not told to hold for surgery methotrexate sodium 2.5 mg tablet 17.5 mg PO MO Patient Comments: hold one week prior to surgery Rx Instructions: Takes 4 tablets at lunch and 3 tablets at supper time. Only on Thursday multivitamin 1 EACH tablet 1 tab PO DAILY folic acid 1 tablet 1 mg PO BID loratadine 10 mg tablet 10 mg PO DAILY PRN (Reason: ALLERGIES) acetaminophen 500 mg capsule 1,000 mg PO Q6H PRN (Reason: fever or pain) aspirin [Panfilo Chewable Aspirin] 81 mg tablet,chewable 81 mg PO DAILY 90 Days Qty: 90 0RF atorvastatin [Lipitor] 40 mg tablet 40 mg PO QHS 30 Days Qty: 30 2RF Changed lisinopril 20 mg tablet 40 mg PO DAILY Qty: 90 3RF Discontinued amoxicillin 500 mg capsule 500 mg PO TID Qty: 30 0RF Referrals / Follow Up: Zane Carrera MD [Primary Care Provider, Internal Medicine] - Within 1 Week Disposition Disposition (needs filled in before D/C Order can be placed): Home, Self Care Charges/Coding Visit Charges Inpatient E&M: 19770 Disch Hosp >30min
== END 2025-08-22 17:07 | disposition home or self-care (01) ==
LOC: ED 10:57 → PCU 11:33
PROVIDERS: Admitting Provider Internal Medicine; Emergency Provider Emergency Medicine; PCP Internal Medicine; Visit Provider Internal Medicine
DX: G51.0 Bell's palsy (principal); M06.9 Rheumatoid arthritis, unspecified; Z79.82 Long term (current) use of aspirin; E78.5 Hyperlipidemia, unspecified; I10 Essential (primary) hypertension; Z90.49 Acquired absence of other specified parts of digestive tract; Z96.641 Presence of right artificial hip joint; J32.9 Chronic sinusitis, unspecified; Z79.899 Other long term (current) drug therapy
CPT/HCPCS: 36415; 70450; 70496; 70498; 70551; 80048; 84484; 85025; 85610; 85730; 92526; 92610; 93005; 94762; 97162; 97166; 97802; 99221; 99285; Q9967; G0378; J8610

== ENCOUNTER → 2025-09-20 | Outpatient (CLI) | payer MEDICARE, SELFPAY ==
[2025-09-20 15:35] LABS: Hematocrit 43.8 % (40-54); Hemoglobin 14.4 g/dL (13.0-16.5); Immature Granulocytes Count 0.020 X10^3/uL (0.0-0.0); Mean Corp Hgb Conc 32.9 g/dL (32-36); Mean Corpuscular Volume 95.0 fL (80-94); Mean Platelet Vol. 9.9 fl (6.2-12.0); NRBC Flagged by Analyzer 0 % (0-5); Platelet Count 172 K/mm3 (150-450); RBC Distribution Width CV 14.3 % (11.6-14.6); RBC Distribution Width SD 48.5 fl (35.1-43.9); Red Blood Count 4.61 M/mm3 (4.6-6.2); White Blood Count 6.5 K/mm3 (4.4-11.0)
[2025-09-20 15:59] LABS: AST(SGOT) 45 U/L (<=37); Alanine Aminotransfer ALT/SGPT 63 U/L (<=46); Albumin, Serum 4.3 g/dL (3.4-4.8); Alkaline Phosphatase 97 U/L (40-129); Anion Gap 9 (5-15); BUN 21 mg/dL (4-19); BUN/Creat Ratio 20.5 RATIO (10-20); Calcium,Total 9.3 mg/dL (7.6-11.0); Carbon Dioxide 29.8 mmol/L (21.0-32.0); Chloride 103 mmol/L (98-108); Globulin 2.2 g/dL (2.2-4.2); Glucose 81 mg/dL (70-99); Potassium 4.0 mmol/L (3.3-5.1)
== END | disposition home or self-care (01) ==
LOC: MTLAB 11:04
PROVIDERS: PCP Internal Medicine; Referring Provider Internal Medicine Rheumatology; Visit Provider Internal Medicine Rheumatology
DX: M06.4 Inflammatory polyarthropathy (principal); Z79.899 Other long term (current) drug therapy
CPT/HCPCS: 36415; 80053; 85025